=== PATIENT | female | born 1945 | race Caucasian/White ===

== ENCOUNTER 2020-12-03 17:18 | Emergency (ER) | payer MEDICARE, SELFPAY ==
[2020-12-03 17:53] VITALS: BP 150/82; PULSE 70; RESP 18; TEMP 36.9; O2SAT 98; BMI 26.6
--- NOTE | 2020-12-03 18:17 | XRR_ITS ---
PROCEDURE INFORMATION: Exam: XR Left Shoulder Exam date and time: 12/03/2020 6:20 PM Age: 75 years old Clinical indication: Injury or trauma; Fall; Blunt trauma (contusions or hematomas); Shoulder; Left; Prior surgery; Surgery type: Pacemaker; Additional info: Injury, fall, pain in left shoulder x today TECHNIQUE: Imaging protocol: XR Left shoulder. Views: 2 or more views. Total images: 3 COMPARISON: No relevant prior studies available. FINDINGS: Tubes, catheters and devices: Pacemaker. Bones/joints: Simple comminuted left humeral head and neck fracture with mild displacement of the greater tubercle avulsion fragment upwards of approximately 6 mm. Osteopenia. Lungs: Calcified granulomas of antecedent disease. Soft tissues: Unremarkable. XR/XR shoulder LT min 2V* [id number] IMPRESSION: Simple comminuted left humeral head and neck fracture.
[2020-12-03 18:45] VITALS: RESP 18; O2SAT 99
[2020-12-03] MEDS: fentaNYL 50 mcg/mL INJ 2mL IVP (18:45)
--- NOTE | 2020-12-03 18:57 | ED_ITS ---
HPI - Extremity Problem General: Chief complaint: Extremity Injury, Upper Stated complaint: Possible L arm/shoulder break Time Seen by Provider: 12/03/20 18:16 History of Present Illness: HPI Narrative: Well appearing 75F seen for accidental fall onto left shoulder with immediate 9/10 pain. She states that she was pushing a trailer and fell to the ground, landing squarely on her left shoulder. She has no pain in the elbow, wrist, hand, but does have some increased pain with taking a deep breath. She denies headache, visual disturbance, neck pain. She does take Plavix. She has no other acute complaints. Review of Systems General: Reports: 10 or more systems reviewed and unremarkable except in HPI and below Physical Exam Const: COMMON NORMALS: no acute distress, patient oriented x3 and alert HENMT: COMMON NORMALS: normocephalic and atraumatic HEAD & SCALP: normocephalic and atraumatic Eye: COMMON NORMALS: Equal, round and reactive pupils present, EOMs intact bilaterally and no scleral icterus PUPIL: Yes Equal, round and reactive pupils present Resp: COMMON NORMALS: normal respiratory effort and No retractions Cardio: COMMON NORMALS: regular rate, regular rhythm and No murmurs present (Cardio) RATE: regular rate RHYTHM: regular rhythm GI: COMMON NORMALS: Normal to inspection, nondistended, normoactive bowel sounds present, Soft to palpation and non-tender PALPATION: Yes Soft to palpation Extremity: LEFT UPPER EXTREMITY: Yes shoulder joint (Severe pain with any motion of the left shoulder. ) OTHER: Left shoulder has no obvious deformity, however there is some swelling on the proximal humerus. She has severe pain with any motion of the left shoulder. Elbow wrist and fingers all retain full range of motion. She has no neurovascular compromise distal to the proximal humerus pain. Neuro: COMMON NORMALS: patient oriented x3 SENSORIUM/ORIENTATION: Yes alert Skin: COMMON NORMALS: no rashes or lesions noted GENERAL SKIN EXAM: no rashes or lesions noted Course Vital Signs: Vital signs: Vital Signs Temperature 98.5 F 12/03/20 17:53 Pulse Rate 70 12/03/20 17:53 Respiratory Rate 18 12/03/20 18:45 Blood Pressure 150/82 12/03/20 17:53 Pulse Oximetry 99 12/03/20 18:45 MDM - Extremity (Nontraumatic) MDM Narrative: Medical decision making narrative: Patient remained hemodynamically stable throughout ED course. X-ray confirms a comminuted proximal left humerus fracture with some involvement of the head of the humerus. There does not appear to be dislocation. She was placed in a sling and given a single dose of fentanyl and then a dose of oxycodone orally which she tolerated well. She will be given a short course of oxycodone and follow-up to orthopedics. I spoke with orthopedics on-call who agrees with the plan. She knows she is always welcome back in the emergency department if her symptoms get worse per her outpatient follow-up. Discharge Plan Discharge Patient Disposition: Home Clinical Impression: Fracture of humerus Qualifiers: Encounter type: initial encounter Humerus Location: proximal Fracture type: closed Fracture morphology: other fracture Fracture alignment: nondisplaced Laterality: left Qualified Code(s): S42.295A - Other nondisplaced fracture of upper end of left humerus, initial encounter for closed fracture Condition: Stable Prescriptions: New oxycodone 5 mg capsule 5 mg PO Q4H PRN (Reason: pain) Qty: 30 RF: 0 No Action bisoprolol-hydrochlorothiazide 10-6.25 mg tablet 1 tab PO QAM RF: 0 simvastatin 10 mg tablet 10 mg PO BEDTIME RF: 0 clopidogrel 75 mg tablet 75 mg PO QAM RF: 0 omeprazole 20 mg capsule,delayed release(DR/EC) 20 mg PO QAM RF: 0 Fish Oil Capsule 1 cap PO DAILY RF: 0 Laxative 4 - 5 tab PO BEDTIME RF: 0 Discharge Orders: Discharge ED (Routine); Ordered 12/03/20 Ordered By: Rafy Valdez Referrals: Migel Flores MD [Primary Care Provider] - Kal Herrera MD [Physician] - 4-7 days Discharge Diet: Usual diet Discharge Activity: Limit activity as instructed Patient Instructions: Opioid Safety Activity Restrictions/Additional Instructions: You have a broken left proximal humerus. Please leave it in the sling and take the pain medication as prescribed as needed for pain. It would likely be best that you sleep in the recliner and use gravity to hold your arm in place. Please follow-up closely with the orthopedic surgeon to make sure your arm is healing adequately. Coding Level of Care Code ED Liqu[employer] Store Manager for Shruthi Hatfield
[2020-12-03 20:18] VITALS: RESP 18; O2SAT 98
[2020-12-03] MEDS: oxyCODONE-APAP 5-325 mg Tablet 1 TAB PO (20:18)
[2020-12-03] MEDS: ondansetron 4 MG Tablet PO (20:51)
[2020-12-03 21:12] VITALS: PULSE 88; RESP 18; O2SAT 98
--- NOTE | 2020-12-04 09:06 | DCPLANNER ---
manufacturing production manager had message to schedule a follow up appointment for patient with ortho, Dr. Herrera for a proximail humerus fracture. manufacturing production manager called the ortho clinic, spoke with Jill, gave clinic patients information. manufacturing production manager was told that patients information would be printed and reviewed. Clinic will call patient with appointment information.
--- NOTE | 2020-12-05 12:28 | DCPLANNER ---
Patient has a follow up appointment scheduled for Saturday, December 05, 2020 at 1:[address]rera at [facility]. Clinic will call patient with appointment information.
--- NOTE | 2021-02-05 07:24 | DCPLANNER ---
Patient had a follow up appointment scheduled for 12.05.[address] Herrera at [facility] - patient did attend appointment.
== END 2020-12-03 21:13 | disposition home or self-care (01) ==
PROVIDERS: Emergency Provider Student in an Organized Health Care Education/Training Program; PCP Family Medicine
DX: S42.292A Other displaced fracture of upper end of left humerus, initial encounter for closed fracture (principal); W18.39XA Other fall on same level, initial encounter; Y93.89 Activity, other specified
CPT/HCPCS: 73030; 96374; 99283; J3010; Q0162

== ENCOUNTER → 2020-12-25 11:41 | Outpatient (BNVA) | payer MEDICARE, SELFPAY | PROVIDERS: PCP Family Medicine; Visit Provider Orthopaedic Surgery | DX: S42.202A Unspecified fracture of upper end of left humerus, initial encounter for closed fracture (principal); X58.XXXA Exposure to other specified factors, initial encounter | CPT/HCPCS: 73030 ==

== ENCOUNTER → 2021-01-22 12:04 | Outpatient (BNVA) | payer MEDICARE, SELFPAY | PROVIDERS: PCP Family Medicine; Visit Provider Orthopaedic Surgery | DX: S42.202A Unspecified fracture of upper end of left humerus, initial encounter for closed fracture (principal); X58.XXXA Exposure to other specified factors, initial encounter | CPT/HCPCS: 73030 ==

== ENCOUNTER 2021-01-23 06:00 | Outpatient (RCR) | payer MEDICARE, SELFPAY | END 2021-02-09 23:59 | disposition home or self-care (01) | LOC: SPT 06:00 | PROVIDERS: PCP Family Medicine; Referring Provider Orthopaedic Surgery; Visit Provider Orthopaedic Surgery | DX: S42.202D Unspecified fracture of upper end of left humerus, subsequent encounter for fracture with routine healing (principal); X58.XXXD Exposure to other specified factors, subsequent encounter | CPT/HCPCS: 97162 ==

== ENCOUNTER → 2021-02-27 13:07 | Outpatient (BNVA) | payer MEDICARE, SELFPAY | PROVIDERS: PCP Family Medicine; Visit Provider Orthopaedic Surgery | DX: S42.202A Unspecified fracture of upper end of left humerus, initial encounter for closed fracture (principal); S42.295A Other nondisplaced fracture of upper end of left humerus, initial encounter for closed fracture; Z87.81 Personal history of (healed) traumatic fracture; X58.XXXA Exposure to other specified factors, initial encounter | CPT/HCPCS: 73030 ==

== ENCOUNTER → 2021-11-26 15:05 | Outpatient (BNVA) | payer MEDICARE, SELFPAY | PROVIDERS: PCP Family Medicine; Visit Provider Internal Medicine Cardiovascular Disease | DX: I10 Essential (primary) hypertension (principal); Z95.0 Presence of cardiac pacemaker; Z86.73 Personal history of transient ischemic attack (TIA), and cerebral infarction without residual deficits; E78.5 Hyperlipidemia, unspecified; Z87.891 Personal history of nicotine dependence; I44.4 Left anterior fascicular block | CPT/HCPCS: 93005; 99204 ==

== ENCOUNTER 2022-05-10 11:13 | Emergency (ER) | payer MEDICARE, SELFPAY ==
[2022-05-10 11:15] VITALS: BP 142/83; PULSE 80; RESP 16; TEMP 36.8; O2SAT 99; BMI 23.6
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
--- NOTE | 2022-05-10 11:27 | XRR_ITS ---
PROCEDURE INFORMATION: Exam: XR Left Tibia and Fibula Exam date and time: 05/10/2022 11:53 AM Age: 76 years old Clinical indication: Injury or trauma; Fall; Blunt trauma; Lower leg; Left; Additional info: Fall, pain superiorly TECHNIQUE: Imaging protocol: Radiologic exam of the Left tibia and fibula. Views: 2 views. COMPARISON: No relevant prior studies available. FINDINGS: Bones/joints: Normal. Soft tissues: There are benign-appearing soft tissue calcifications. Vasculature: There are peripheral vascular calcifications. XR/XR tibia fibula LT 2V [id number] IMPRESSION: No acute findings.Non acute findings as described above.
--- NOTE | 2022-05-10 11:27 | XRR_ITS ---
PROCEDURE INFORMATION: Exam: XR Right Knee Exam date and time: 05/10/2022 11:56 AM Age: 76 years old Clinical indication: Injury or trauma; Fall; Blunt trauma; Knee; Left; Additional info: Fall pain TECHNIQUE: Imaging protocol: Radiologic exam of the Right knee. Views: 3 views. COMPARISON: No relevant prior studies available. FINDINGS: Bones/joints: There are small marginal osteophytes across the tibia-fibular joint and medial joint compartment consistent with primary osteoarthritic change. The lateral aspect of the lateral tibial plateau appears somewhat depressed without a discrete fracture seen. Soft tissues: There are benign-appearing soft tissue calcifications. XR/XR knee RT 3V* [id number] IMPRESSION: There is mild depression at the lateral aspect of the lateral tibial plateau without a discrete fracture seen. CT scan of the knee is recommended for further evaluation.
--- NOTE | 2022-05-10 11:27 | XRR_ITS ---
PROCEDURE INFORMATION: Exam: XR Left Knee Exam date and time: 05/10/2022 11:51 AM Age: 76 years old Clinical indication: Injury or trauma; Fall; Blunt trauma; Knee; Left; Additional info: Fall, pain TECHNIQUE: Imaging protocol: Radiologic exam of the Left knee. Views: 3 views. COMPARISON: No relevant prior studies available. FINDINGS: Bones/joints: There is a displaced fracture through the mid pole of the patella with 2.5 cm separation across the fracture site and adjacent soft tissue hematoma. Soft tissues: See Bones/joints finding. Vasculature: There are peripheral vascular calcifications. XR/XR knee LT 3V* [id number] IMPRESSION: There is a displaced fracture through the mid pole of the patella with 2.5 cm separation across the fracture site and adjacent soft tissue hematoma.
--- NOTE | 2022-05-10 11:27 | XRR_ITS ---
PROCEDURE INFORMATION: Exam: XR Pelvis Exam date and time: 05/10/2022 11:50 AM Age: 76 years old Clinical indication: Injury or trauma; Fall; Blunt trauma (contusions or hematomas); Bilateral; Pelvic region; Additional info: Fall, lle pain TECHNIQUE: Imaging protocol: Radiologic exam of the pelvis. Views: 1 or 2 view. COMPARISON: No relevant prior studies available. FINDINGS: Bones/joints: There are degenerative changes in the visualized lower lumbar spine. Degenerative changes extend across the sacroiliac joints. There are small marginal osteophytes across the hip joints. Soft tissues: Unremarkable. Vasculature: There are vascular calcifications. XR/XR pelvis 1-2V* [id number] IMPRESSION: There are degenerative changes as described above. No evidence for acute fracture.
[2022-05-10] MEDS: oxyCODONE 5 mg IR Tab/Cap PO (13:26)
[2022-05-10] MEDS: ketorolac 30 mg/mL INJ 15 MG IM (13:26)
[2022-05-10] MEDS: acetaminophen 325 mg Tablet 650 MG PO (13:26)
--- NOTE | 2022-05-10 13:43 | CTR_ITS ---
PROCEDURE INFORMATION: Exam: CT Right Lower Extremity Without Contrast, Knee Exam date and time: 05/10/2022 1:58 PM Age: 76 years old Clinical indication: Injury or trauma; Fall; Blunt trauma; Knee; Right; Additional info: ? Tibial plateua fracture, abnormal XR TECHNIQUE: Imaging protocol: CT of the Right lower extremity without contrast was performed. Exam focused on the knee. Radiation optimization: All CT scans at this facility use at least one of these dose optimization techniques: automated exposure control; mA and/or kV adjustment per patient size (includes targeted exams where dose is matched to clinical indication); or iterative reconstruction. COMPARISON: CR (LOW EXM, ) 05/10/2022 11:56 AM RADIATION DOSE METRICS: Total DLP (mGy-cm): 320.82 FINDINGS: Bones/joints: There is chronic contour abnormality of the lateral tibial plateau possibly representing sequela of chronic injury/fracture. No acute fracture is seen. Soft tissues: Normal. Vasculature: There are peripheral vascular calcifications. CT/CT knee RT wo con* [id number] IMPRESSION: There is chronic contour abnormality of the lateral tibial plateau possibly representing sequela of chronic injury/fracture. No acute fracture is seen.
--- NOTE | 2022-05-10 13:44 | PC.NURSE ---
Patient received education, on how to use crutches. Patient demonstrated the use of crutches. Patient's family will obtain a wheel chair for said patient.
--- NOTE | 2022-05-13 09:57 | DCPLANNER ---
Addendum entered by Patricia Mari 05/21/22 14:31: Patient had a follow up appointment scheduled for 05.13.22 with Tomi at ortho - patient did attend appointment. Original Note: financial investment manager had message to schedule a follow up appointment for patient with ortho. financial investment manager sent patients information to the front office staff at ortho. Patients information will be printed and reviewed. Clinic will call patient with appointment information.
== END 2022-05-10 15:38 | disposition home or self-care (01) ==
PROVIDERS: Emergency Provider Emergency Medicine; PCP Family Medicine
DX: S82.002A Unspecified fracture of left patella, initial encounter for closed fracture (principal); S80.212A Abrasion, left knee, initial encounter; S80.211A Abrasion, right knee, initial encounter; W18.39XA Other fall on same level, initial encounter; I10 Essential (primary) hypertension; Z86.73 Personal history of transient ischemic attack (TIA), and cerebral infarction without residual deficits; Z87.891 Personal history of nicotine dependence
CPT/HCPCS: 29530; 72170; 73562; 73590; 73700; 96372; 99285; E0114; J1885

== ENCOUNTER → 2022-05-13 11:04 | Outpatient (BNVA) | payer MEDICARE, SELFPAY | PROVIDERS: PCP Family Medicine; Referring Provider Emergency Medicine; Visit Provider Student in an Organized Health Care Education/Training Program | DX: W17.89XA Other fall from one level to another, initial encounter (principal); S82.002A Unspecified fracture of left patella, initial encounter for closed fracture | CPT/HCPCS: 73560 ==

== ENCOUNTER 2022-05-13 14:43 | Outpatient (CLI) | payer MEDICARE, SELFPAY | END 2022-05-13 14:44 | disposition home or self-care (01) | LOC: SPT 14:43 | PROVIDERS: PCP Family Medicine; Visit Provider Student in an Organized Health Care Education/Training Program | DX: Z46.89 Encounter for fitting and adjustment of other specified devices (principal); S82.092D Other fracture of left patella, subsequent encounter for closed fracture with routine healing; X58.XXXD Exposure to other specified factors, subsequent encounter | CPT/HCPCS: 97760; 99204; L1832 ==

== ENCOUNTER 2022-05-16 07:34 | Day surgery (SDC) | payer MEDICARE, SELFPAY ==
[2022-05-15 13:44] VITALS: BMI 23.6
[2022-05-16] VITALS (11 sets, daily range): BP systolic 127–175; BP diastolic 61–98; PULSE 69–79; RESP 13–18; TEMP 36.1–36.8; O2SAT 90–100
--- NOTE | 2022-05-16 | SCC_ITS ---
Procedure Done: Left patella open reduction internal fixation 50.6 seconds of fluoroscopic guidance, for a cumulative dose of 2.41 mGy, was provided to Dr. Krishna by the radiology department. C-arm images of the left knee were saved for the patient's permanent record. JENNI
--- NOTE | 2022-05-16 | XR_ITS ---
WS: [id number] Left knee, C-arm fluoroscopy views, 05/16/2022 Clinical Data: orif patella Comparison: Left patella, 05/13/2022 Findings: There are 3 orthopedic screws reducing the transverse fracture of the left patella. XR/XR knee LT 1-2V 58830 Impression: Internal fixation of transverse fracture of left patella.
[2022-05-16] MEDS: acetaminophen 1,000 MG/100 ML PIGGYBACK 400 MG IV (08:13)
[2022-05-16] MEDS: ketorolac 30 mg/mL INJ IVP (08:13)
[2022-05-16] MEDS: sodium chloride 0.9% 1,000 ML 30 ML IV (08:14)
--- NOTE | 2022-05-16 08:14 | P.ANESASSM_ITS ---
Pre-Anesthetic Assessment Height/Weight: Height 1.65 m Weight 64.41 kg Temp Pulse Resp BP Pulse Ox O2 Del Method 98.2 F 74 18 127/77 98 05/16/22 08:01 05/16/22 08:01 05/16/22 08:01 05/16/22 08:01 05/16/22 08:01 05/16/22 08:06 Preop Diagnosis: Displaced left patella fracture Operation Date: 05/16/22 09:05 Proposed Procedures p OPEN REDUCTION INTERNAL FIXATION OF LEFT PATELA FRACTURE 83427,S82.002A(Left) - Giancarlo Reynolds, Familial anesthetic complications: None Was Beta Mikel taken within 24 hours: Yes Was Clonidine taken within 24 hours: N/A Last intake: Intake Last Liquid Date 05/15/22 Last Liquid Time 23:00 Last Solid Date 05/15/22 Last Solid Time 23:00 Social No alcohol and No tobacco Exam alert, oriented x 3, clear to auscultation bilaterally and regular rate & rhythm Airway Mallampati: Class II Dentition: false CV/HEM Arrythmia (pacemaker for bradycardia/ heart pausing ) and Hypertension Echo from 2014 - EF 65%, normal GI Gastroesophageal Reflux Disease Neuropsych Cerebrovascular Accident (on plavix) Anesthetic Plan ASA status: 3 Anesthesia: General Risk of > 500 ml blood loss (7ml/kg in children): No Other Pertinent Information Patient's family declined block, due to inability to ensure patient would not bear weight. She doesn't always listen. She'll try to get up anyway. Medications/Allergies Home Medications Medication Instructions Recorded Confirmed Last Taken Type bisoprolol 10 1 tab PO QAM 12/03/20 05/16/22 05/15/22 History mg-hydrochlorothiazide 6.25 mg tablet clopidogrel 75 mg tablet 75 mg PO QAM 12/03/20 05/15/22 05/14/22 History omega-3 fatty acids 1 cap PO DAILY 12/03/20 05/16/22 05/15/22 History omeprazole 20 mg capsule,delayed 20 mg PO QAM 12/03/20 05/16/22 05/15/22 History release simvastatin 10 mg tablet 10 mg PO BEDTIME 12/03/20 05/16/22 05/15/22 History donepezil 5 mg tablet 5 mg PO DAILY 11/26/21 05/16/22 05/15/22 History fluoxetine 20 mg capsule 60 mg PO DAILY 11/26/21 05/16/22 05/15/22 History ondansetron 4 mg disintegrating 4 mg PO Q8H PRN nausea and 05/10/22 05/15/22 Unknown Rx tablet vomiting #15 tabs oxycodone 5 mg tablet 5 mg PO Q4H PRN pain #30 tabs 05/10/22 05/16/22 05/15/22 Rx polyethylene glycol 3350 17 gram 17 g PO DAILY #30 ea 05/10/22 05/16/22 05/15/22 Rx oral powder packet (Miralax) [place] knee brace #1 ea 05/13/22 05/13/22 Unknown Rx Allergies Allergy/AdvReac Type Severity Reaction Status Date / Time Sulfa (Sulfonamide Allergy Unknown rash Verified 05/15/22 13:38 Antibiotics) codeine Allergy nausea Verified 05/15/22 13:38 [facility] Anesthesia Medical History Benign essential hypertension CVA (cerebral vascular accident) Family History Mother Diabetes Father Diabetes Brother Diabetes x 10 brothers Hypertension x 10 brothers Lung disease Cancer CAD (coronary artery disease) x 4 brothers Sister Diabetes x 4 sisters Hypertension x 7 sisters Denies family history of Clotting disorder Anesthesia complication Bleeding disorder Social History Smoking and tobacco status: former smoker Alcohol intake: never Data Anesthesia Cardiac Studies: No Data to Display
--- NOTE | 2022-05-16 08:20 | ECG_ITS ---
[facility] Test Date: 2022-05-16 Pat Name: Kristina Johnson Department: Room: Gender: Female Tattoo Identifier: : 1945 Requested By: Lin Patel Order Number: [id number] Brinda MD: Miriam Mccormick M.D. Measurements Intervals [place] Rate: 69 P: 236 KS: 194 QRS: -46 QRSD: 102 T: 28 QT: 434 QTc: 468 Interpretive Statements ELECTRONIC ATRIAL PACEMAKER LOW QRS VOLTAGE IN PRECORDIAL LEADS [QRS DEFLECTION < 1.0 mV IN CHEST LEADS] LEFT ANTERIOR FASCICULAR BLOCK [QRS AXIS <= -45, QR IN I, RS IN II] No previous ECG available for comparison Electronically Signed On 05-16-2022 10:42:50 CDT by Miriam Mccormick M.D. [email or web address]
--- NOTE | 2022-05-16 09:12 | W.PM.OPSUD ---
Surgery/Procedure H&P Update DATE OF PROCEDURE: May 16, 2022 DATE H&P PERFORMED: 05/13/22 CHANGES TO PREVIOUS DOCUMENTATION: None. Anterior aspect of the knee continues ecchymosis and swelling over fracture site of patella. Palpable hematoma and defect. Patient did have small little scabs over the anterior aspect of the knee they have small areas of erythema around. At this point time she will receive appropriate perioperative antibiotics and I will send her home on some p.o. antibiotics just in case for infection prophylaxis due to small erythema over incision site. This point time feel no indication to further delay surgery and fixation patient family understand agree with current plan. All questions answered. We will proceed with open reduction internal fixation left patella fracture. PREOP DIAGNOSIS: Displaced left patella fracture PRIMARY INDICATION FOR PROCEDURE: Displaced left patella fracture PLANNED PROCEDURE: Operation Date: 05/16/22 09:05 Proposed Procedures p OPEN REDUCTION INTERNAL FIXATION OF LEFT PATELA FRACTURE 14460,S82.002A(Left) - Giancarlo Krishna DO
[2022-05-16 09:25] LABS: Blood Urea Nitrogen 9 mg/dL (8-23); Calcium 9.3 mg/dL (8.5-10.5); Carbon Dioxide 27 mmol/L (22-29); Chloride 98 mmol/L (98-107); Glucose 78 mg/dL (65-115); Osmolality Calculated 280 mOsm/kg (285-295); Sodium 136 mmol/L (136-145)
[2022-05-16 09:27] LABS: Anion Gap 14.9 (5-19); Potassium 3.9 mmol/L (3.5-5.1)
[2022-05-16] MEDS: ceFAZolin 2,000 MG in sodium chloride 0.9% (plus) 50 ML 100 MG IV (09:47)
--- NOTE | 2022-05-16 11:44 | P.OP_ITS ---
Brief Operative Note Date of procedure: 05/16/22 Pre-op diagnosis: Displaced left patella fracture Post-op diagnosis: same Procedure Done: Left patella open reduction internal fixation Surgeon: Giancarlo Krishna Estimated blood loss (mL): 25 Complications: None Post-op Plan: Patient to recover in PACU. Patient will discharge later today. Dressings clean dry and intact. Knee brace locked in full extension on and in place. Patient to follow-up in 2 weeks. Will be given appropriate discharge instructions, DVT prophylaxis, pain medication postoperatively as well as will give her some p.o antibiotics for surgical prophylaxis as she did have some mild erythema by her eschars on the anterior aspect of the knee near the incision. Patient will follow-up in 2 weeks may weight-bear as tolerated with knee locked in full extension. May weight-bear as tolerate with knee locked in full extension utilizing walker or crutches. Condition: stable Disposition: same day Coding Level of Care Code Acute Academic Department Chair for Shruthi Hatfield
--- NOTE | 2022-05-16 11:46 | PM.PACU ---
PACU note Narrative: Recovering well in PACU. Patient recovering lethargic and sedated from anesthesia unable to cooperate for sensory and motor examination. Toes are warm and well-perfused. Brisk capillary refill less than 2 seconds. Distal pulse palpable. Dressings clean dry and intact brace locked in full extension Exam: unarousable (see narrative for detailed exam) Disposition: discharged
--- NOTE | 2022-05-16 11:48 | P.OP_ITS ---
Operative Report Date of procedure: May 16, 2022 Pre-op diagnosis: Preop Diagnosis Displaced left patella fracture Post-op diagnosis: Same with associated medial and lateral retinacular tears Procedure done: Left patella open reduction internal fixation Implants: [place] 4.0 mm headed partially-threaded cannulated screws 36 mm, 36 mm, 38 mm Arthrex fiber tape Arthrex FiberWire Surgeon: Giancarlo Krishna DO Estimated blood loss: 25 cc 56 minutes IV fluids: See anesthesia record Complications: None Condition: stable Disposition: same day Brief History: Kristina is a pleasant 76-year-old female who sustained an injury to her left knee with imaging and physical exam findings consistent with a left patella fracture. She has significant diastases at the fracture site and inability to perform a straight leg raise showing disruption of extensor mechanism. We had detailed discussion about her treatment options in the office about nonoperative and operative intervention. Through shared decision making she agrees to proceed with surgical intervention. She understands the risk benefits complications a lternatives to surgical treatment option and agrees to proceed with surgery. Preoperatively her eschar she had from in the office have some slight mild erythema around the sites she received appropriate perioperative antibiotics however we will send her home on some p.o. antibiotics postoperatively just for infection prophylaxis. Patient understands agrees with current plan. All questions answered. Consent was obtained in the office and reviewed in the preoperative holding area. Procedure: Patient was seen evaluated in the preoperative holding area. The consent was reviewed with patient. Correct extremity was then marked. Patient was then seen evaluated by the anesthesia and preoperative team. Once cleared for surgery she was then taken to the operative suite. She was then placed in supine position with all bony prominences well-padded patient was appropriately secured to the bed. She underwent anesthesia per the anesthesia department. Once appropriately anesthetized the left lower extremity was then placed with a nonsterile tourniquet to the left lower extremity thigh. The left lower extremity was then prepped and draped in standard orthopedic fashion. Patient received appropriate preoperative antibiotics. Final timeout performed. Esmarch tourniquet was used exsanguinate the left lower extremity and tourniquet was insufflated to 250 mmHg Standard anterior longitudinal incision was made directly over the anterior aspect of needle centered over the fracture site sharp scalpel excision through skin and subcutaneous tissue with full-thickness skin flaps were made both medially and laterally. Immediately encountered the extensor retinaculum with a large hematoma. No purulence or anything was noted on my dissection no concerning findings for a deep infection at this point time. I then utilized scalpel excision to mobilize my skin flaps to have full visualization of patient's patellar fracture. This point time thorough irrigation and suction was used to evacuate hematoma as well as clean out the knee joint. Once this was done I used sharp scalpel excision to elevate the periosteum to visualize my fracture fragments. There was 1 main transverse fracture fragment and there was a slight longitudinal split on the inferior fracture fragment creating 2 pieces inferiorly with the smaller piece being on the lateral aspect. Once I had direct visualization of my fracture fragments I then utilized a combination of clamps. I first clamped my inferior fracture fragment and perpendicular to this longitudinal split to maintain this 1 main fracture fragment and keep this together well her tension band construct was placed. I then subsequently under direct large C arm fluoroscopic imaging placed intact macula and clamp to reduce the proximal and distal bone fragments together. Clamp was held directly at the level of the articular surface to have appropriate compression at this site. I then utilized a freer through the medial and lateral retinacular tears to feel my articular reduction which was anatomic. At this point time I was satisfied in multiple orthogonal images with my patellar fracture reduction. I then subsequently advanced a K wire being sure to capture the small inferior lateral fracture fragment with a longitudinal split while my clamp held our reduction. This was then advanced to appropriate depth. I then at this point time felt fragment was long urgent enough to accommodate for 3 cannulated screws with a tension band construct fixation so I subsequently placed 2 more K wires in parallel fashion this would obtain excellent capture and spread throughout her fracture. Once these K wires were placed and confirmed to be in appropriate position I then measured the sequentially and took 2 mm off. Once this was done I then advanced the K wires and my laboratory assistant retrieve them proximally out of the incision I then sequentially used the cannulated drill bit to drill out the near cortex of all 3 screw sites. Then while using a tenaculum to hold the reduction and prevent any rotation I subsequently by hand placed a 36 mm, 36 mm and a 38 mm 4.0 mm partially-threaded cannulated headed screw. These had excellent fixation and were confirmed to be not too long and out of bone to prevent any type of suture cut out. Once I was satisfied with my placement the clamps were then subsequently removed my reduction was maintained. At this point time I then utilized a nitinol loop needle loaded up Arthrex suture tape and then shuttled this into tension band fashion through all 3 screws and these were tied to complete our tension band construct with excellent fixation and compression along the fracture site. Suture tape was then cut and knots were buried. At this point I utilized Arthrex FiberWire to repair the medial and lateral retinacular tears. I then utilized interrupted Vicryl suture to reapproximate the periosteum over the fracture site superficially. Next I did a running cerclage as FiberWire suture around the patella to add for fixation stability. This was then subsequently tied and excess suture removed. This completed her construct a final images of AP and lateral were performed showing anatomic reduction patella fracture with stable fixation. The wound bed was then thoroughly irrigated. Tourniquet deflated. Hemostasis maintained with electrocautery. The incision was then closed in layered fashion with 0 Vicryl suture 2-0 Vicryl suture and david for skin Xeroform 4 x 4's ABD Curlex and an Simeon wrap was then applied and the knee was placed into her hinged knee brace locked in full extension. Patient was then awakened from anesthesia and taken to PACU in stable condition. Patient tolerated procedure without complications. Disposition: Patient taken to PACU in stable condition will discharge later today. Dressings clean dry and intact given appropriate discharge instructions, pain medication DVT prophylaxis postoperatively. She will get p.o. antibiotics for surgical prophylaxis due to erythema over eschar abrasions of the anterior aspect of the knee near the incision. We will see her back in 2 weeks for follow-up. She can be weightbearing as tolerated with the knee locked in full extension. Patient should have no bending of the knee until follow-up. Patient understands agrees with current plan. All questions answered.
[2022-05-16] MEDS: oxyCODONE-APAP 5-325 mg Tablet 1 TAB PO (12:40)
[2022-05-16] MEDS: fentaNYL 50 mcg/mL INJ 2mL 25 MCG IVP (13:34)
--- NOTE | 2022-05-16 14:02 | SUR.PHASEII ---
patient's family requested home health to help her with bathing at home. discharge planning working on this and will call patient.
--- NOTE | 2022-05-16 15:11 | ANE.PACU2 ---
Inpatient post-anesthesia follow up: Airway intact: Yes Vital signs: Temperature 97.5 F Pulse Rate 71 Respiratory Rate 16 Blood Pressure 163/98 Pulse Oximetry 90 Oxygen Delivery Me thod Room Air Oxygen Flow Rate 5 Fraction of Inspir ed Oxygen Hydration adequate: Yes Nausea and vomiting: No Pain level: 1 Mental status: Baseline
== END 2022-05-16 14:00 | disposition home or self-care (01) ==
PROVIDERS: Anesthesiology; PCP Family Medicine; Visit Provider Student in an Organized Health Care Education/Training Program
PROC: (CPT 27524; principal; 2022-05-16 08:55)
DX: S82.002A Unspecified fracture of left patella, initial encounter for closed fracture (principal); X58.XXXA Exposure to other specified factors, initial encounter; I10 Essential (primary) hypertension; K21.9 Gastro-esophageal reflux disease without esophagitis; Z86.73 Personal history of transient ischemic attack (TIA), and cerebral infarction without residual deficits; Z79.02 Long term (current) use of antithrombotics/antiplatelets; Z87.891 Personal history of nicotine dependence
CPT/HCPCS: 27524; 73560; 76000; 80048; 86850; 86900; 93005; C1713; J0131; J0690; J1100; J1170; J1885; J2405; J2704; J2710; J2795; J3010; J3490; J7030

== ENCOUNTER → 2022-05-29 07:52 | Outpatient (BNVA) | payer MEDICARE, SELFPAY | PROVIDERS: PCP Family Medicine; Visit Provider Student in an Organized Health Care Education/Training Program | DX: Z98.890 Other specified postprocedural states (principal); S82.002D Unspecified fracture of left patella, subsequent encounter for closed fracture with routine healing; X58.XXXD Exposure to other specified factors, subsequent encounter | CPT/HCPCS: 73560; 99024 ==

== ENCOUNTER 2022-05-29 12:10 | Inpatient (IN) | payer MEDICARE, SELFPAY ==
[2022-05-29] VITALS (20 sets, daily range): BP systolic 137–170; BP diastolic 68–83; PULSE 69–71; RESP 16–17; TEMP 36.7; O2SAT 95–99; BMI 21.9; BMI 25.2
--- NOTE | 2022-05-29 13:10 | XR_ITS ---
WS: [id number] Exam: XR chest 1V portable [id number] Date/Time of Exam: 05/29/2022 1:24 PM Reason For Exam: dyspnea/cough Comparison 03/22/2019. The lungs are hyperinflated and clear. Normal cardiomediastinal silhouette. No pleural effusions. Per manent cardiac pacer seen over the left chest. Calcified granuloma in the left lower lung zone. Old p roximal left humeral fracture. Remaining bony structures are intact. XR/XR chest 1V portable [id number] IMPRESSION: 1. No acute cardiopulmonary finding. No change.
--- NOTE | 2022-05-29 13:40 | USCV_ITS ---
Kristina Johnson Age: 76 Gender: F : 1945 Exam Date: 05/29/2022 14:19 Ordering Phys: Jens Stratton DO Technologist: Ozzie Landers [place] [facility] [place] Indication: post lt knee surg PROCEDURES: Venous duplex imaging was performed in only the left lower extremity. The following venous structures were evaluated: common femoral vein, profunda vein, proximal portion of the greater saphenous vein, superficial femoral vein, and the popliteal vein. In addition, the posterior tibial and peroneal trunk were evaluated. FINDINGS: Normal 2-D Doppler and augmentation and compressibility throughout the lower extremity venous structures. Additional imaging through the proximal calf veins also reveals no thrombus. Limited evaluation of the greater saphenous vein is patent with no thrombus.. CONCLUSIONS No evidence of left lower extremity DVT. Simone Limon MD (Electronically Signed) Final Date: 29 May 2022 15:13 S
--- NOTE | 2022-05-29 13:40 | W.ED.NAVMDI ---
HPI - Nausea/Vomiting/Diarrhea General: Chief complaint: Nausea/Vomiting/Diarrhea Stated complaint: n/v/d Time Seen by Provider: 05/29/22 13:07 Source: patient Mode of arrival: wheelchair History of Present Illness: 76-year-old female presents emergency room complaining of nausea and leg pain. Patient recently had a patellar fracture she underwent open reduction internal fixation according to the orthopedic notes and in talking Dr. Krishna that is actually been going well. They are concerned it is not healing well crutches not been able to eat and drink states she has had nausea and vomiting and intermittent constipation since the surgery. She is still using oxycodone for pain. She previously had a stroke and has difficult time with following discussion at times. MD elicited complaint: nausea, vomiting and diarrhea Onset (ago): week(s) Description of vomiting: watery and bilious Description of diarrhea: watery Associated nausea: Yes Associated abdominal pain: No Exacerbating factors: eating Relieving factors: none Associated symtoms: Reports bloating, fatigue, anorexia, malaise, nausea and weakness; Denies anxiety, change in vision, chest pain, cough, diaphoresis, decreased urine output, dizziness, dysuria, epistaxis, fecal incontinence, fevers/chills, headache(s), myalgias, numbness, palpitations, rash, short of breath, syncope, tenesmus or tinnitus Review of Systems Const: Reports: fatigue and malaise; Denies: fever(s), chills or diaphoresis Eyes: Denies: change in vision ENMT: Denies: tinnitus or epistaxis Card: Denies: chest pain, palpitations or syncope Resp: Denies: dyspnea, productive cough or non-productive cough GI: Reports: nausea, vomiting and bloating; Denies: abdominal pain or fecal incontinence : Denies: flank pain, difficulty voiding, dysuria, urinary frequency or urinary urgency Musc: Denies: neck pain or back pain Skin/Breast: Denies: rash or pruritus Neuro: Denies: headache(s) or dizziness Psych: Denies: anxiety PFSH ED PFSH: Medical History (Updated 05/29/22 @ 16:26 by Jens Stratton DO) Benign essential hypertension Cerebrovascular disease CVA (cerebral vascular accident) Pacemaker SSS (sick sinus syndrome) Thrombotic stroke Surgical History (Updated 05/29/22 @ 13:45 by Jens Stratton DO) Hx of cholecystectomy Hx of knee surgery Family History Mother Diabetes CAD (coronary artery disease) Father Diabetes CAD (coronary artery disease) Brother Diabetes x 10 brothers Hypertension x 10 brothers Lung disease Cancer CAD (coronary artery disease) x 4 brothers Stroke Sister Diabetes x 4 sisters Hypertension x 7 sisters CAD (coronary artery disease) Brother Stroke CAD (coronary artery disease) Cancer Diabetes Brother CAD (coronary artery disease) Diabetes Brother CAD (coronary artery disease) Brother CAD (coronary artery disease) Brother CAD (coronary artery disease) Brother CAD (coronary artery disease) Brother CAD (coronary artery disease) Sister Diabetes Lung disease Denies family history of Clotting disorder Dementia Chronic kidney disease (CKD) Suicide Anesthesia complication Bleeding disorder Social History Smoking and tobacco status: former smoker Alcohol intake: never Physical Exam Const: GENERAL APPEARANCE: cooperative and comfortable ORIENTATION/CONSCIOUSNESS: Yes awake, Yes oriented to person, Yes oriented to place and Yes oriented to time HENMT: COMMON NORMALS: normocephalic, atraumatic and hearing grossly normal bilaterally HEAD & SCALP: normocephalic and atraumatic Resp: COMMON NORMALS: normal respiratory effort, No retractions, No use of accessory muscles and clear to auscultation bilaterally AUSCULTATION: clear to auscultation bilaterally Cardio: COMMON NORMALS: regular rate, regular rhythm and No murmurs present (Cardio) RATE: regular rate RHYTHM: regular rhythm GI: COMMON NORMALS: Soft to palpation and No hepatosplenomegaly present AUSCULTATION: Yes normoactive bowel sounds PALPATION: Yes Soft to palpation, No Tenderness to palpation present (GI), No Guarding due to palpation present (GI) and Yes No hepatosplenomegaly present Extremity: COMMON NORMALS: normal to inspection, capillary refill normal, no clubbing, cyanosis or edema, no calf tenderness and no pedal edema Neuro: SENSORIUM/ORIENTATION: Yes oriented to person, Yes oriented to place and Yes oriented to time Skin: COMMON NORMALS: no rashes or lesions noted GENERAL SKIN EXAM: no rashes or lesions noted Course Vital Signs: Vital signs: Vital Signs Temperature 98.0 F 05/29/22 12:56 Pulse Rate 70 05/29/22 15:20 Respiratory Rate 16 05/29/22 12:56 Blood Pressure 160/79 05/29/22 15:20 Pulse Oximetry 99 05/29/22 15:20 Oxygen Delivery Me thod 05/29/22 15:20 MDM - Nausea/Vomiting/Diarrhea Medical Decision Making Venous duplex of the left leg is normal. Patient is hyponatremic. I think that and her medicine vacation side effects are driving most of her symptoms. Will admit discussed with hospitalist IV fluids started. Patient also likely need to transition from oxycodone to something else like it lop with her GI upset and her intermittent constipation. Medical Records I reviewed the patient's medical records. Lab Data I reviewed the patient's lab results. 05/29/22 14:13 05/29/22 14:13 Radiology Impressions Chest X-Ray 05/29/22 13:10 IMPRESSION: 1. No acute cardiopulmonary finding. No change. Laboratory Results WBC 11.9 10^3/uL (4.0-10.0) H 05/29/22 14:13 RBC 4.48 10^6/uL (4.1-5.3) 05/29/22 14:13 Hgb 13.1 g/dL (11.5-15.3) 05/29/22 14:13 Hct 38.8 % (37.0-47.0) 05/29/22 14:13 MCV 86.6 fl (81-99) 05/29/22 14:13 MCH 29.2 pg (28.0-34.0) 05/29/22 14:13 MCHC 33.8 g/dL (30.0-36.0) 05/29/22 14:13 RDW 13.1 % (12.1-15.1) 05/29/22 14:13 Plt Count 529 10^3/cmm (130-400) H 05/29/22 14:13 MPV 8.5 fL (7.4-10.4) 05/29/22 14:13 Neut % (Auto) 83.4 % 05/29/22 14:13 Lymph % (Auto) 9.9 % 05/29/22 14:13 [place] % (Auto) 4.5 % 05/29/22 14:13 Eos % (Auto) 0.1 % 05/29/22 14:13 Baso % (Auto) 0.3 % 05/29/22 14:13 Neut # (Auto) 9.90 10^3/uL (1.8-7.7) H 05/29/22 14:13 Lymph # (Auto) 1.2 10^3/uL (0.8-4.8) 05/29/22 14:13 [place] # (Auto) 0.5 10^3/uL (0.2-0.9) 05/29/22 14:13 Eos # (Auto) 0.0 10^3/uL (0.0-0.8) 05/29/22 14:13 Baso # (Auto) 0.0 10^3/uL (0.0-0.1) 05/29/22 14:13 Nucleated RBC % (auto) 0 % 05/29/22 14:13 Nucleated RBCs # 0.0 /100WBC 05/29/22 14:13 Sodium 122 mmol/L (136-145) L 05/29/22 14:13 Potassium 4.4 mmol/L (3.5-5.1) 05/29/22 14:13 Chloride 84 mmol/L (98-107) L 05/29/22 14:13 Carbon Dioxide 27 mmol/L (22-29) 05/29/22 14:13 Anion Gap 15.4 (5-19) 05/29/22 14:13 BUN 15 mg/dL (8-23) 05/29/22 14:13 Creatinine 0.8 mg/dL (0.5-0.9) 05/29/22 14:13 GFR Calculation Not Reportable 05/29/22 14:13 Glucose 109 mg/dL (65-115) 05/29/22 14:13 Calculated Osmolality 255 mOsm/kg (285-295) L 05/29/22 14:13 Calcium 10.3 mg/dL (8.5-10.5) 05/29/22 14:13 Total Bilirubin 0.5 mg/dL (0.15-1.2) 05/29/22 14:13 AST 31 U/L (0-32) 05/29/22 14:13 ALT 16 U/L (0-33) 05/29/22 14:13 Alkaline Phosphatase 163 U/L (35-105) H 05/29/22 14:13 Total Protein 7.6 g/dL (6.6-8.7) 05/29/22 14:13 Albumin 4.3 g/dL (3.5-5.2) 05/29/22 14:13 Globulin 3.3 g/dL (1.3-4.6) 05/29/22 14:13 Serum Ketones Negative (Negative) 05/29/22 14:13 Discharge Plan Discharge Patient Disposition: Admitted As Inpatient Admit Provider: Waldo Sheth Clinical Impression: Acute hyponatremia, CVA (cerebral vascular accident), Benign essential hypertension, Presence of permanent cardiac pacemaker, Increased nausea and vomiting, Patellar fracture Condition: Stable Coding Level of Care Code ED Hand Endband Cutter for Chg Fwd Exam Detailed
--- NOTE | 2022-05-29 13:54 | PC.NURSE ---
pt's family reports pt has been having nausea and vomiting for 2 weeks. Had recent knee surgery that isnt healing and they were told by Dr. Krishna that it is related to poor nutrition. Family denies any new symptoms today. Denies fevers, abdominal pain, or complaints. lung sounds clear bilat. bowel sounds present x4.
[2022-05-29] MEDS: sodium chloride 0.9% 1,000 ML 999 ML IV (14:07)
[2022-05-29] MEDS: ondansetron 2 mg/ML SDV 2 mL 4 MG IVP (14:11)
[2022-05-29 14:21] LABS: Basophils % 0.3 %; Eosinophils % 0.1 %; Hematocrit 38.8 % (37.0-47.0); Hemoglobin 13.1 g/dL (11.5-15.3); Lymphocytes # 1.2 10^3/uL (0.8-4.8); Lymphocytes % 9.9 %; Mean Corpuscular HGB Conc 33.8 g/dL (30.0-36.0); Mean Corpuscular Hemoglobin 29.2 pg (28.0-34.0); Mean Corpuscular Volume 86.6 fl (81-99); Mean Platelet Volume 8.5 fL (7.4-10.4); Monocytes # 0.5 10^3/uL (0.2-0.9); Monocytes % 4.5 %; Neutrophils % 83.4 %; Nucleated Red Blood Cells % 0 %; Platelet Count 529 10^3/cmm (130-400); Red Blood Count 4.48 10^6/uL (4.1-5.3); Red Cell Distribution Width 13.1 % (12.1-15.1); White Blood Count 11.9 10^3/uL (4.0-10.0)
[2022-05-29 14:30] LABS: Ketone (Acetest) Serum Negative (Negative)
[2022-05-29 14:41] LABS: Alanine Aminotransferase 16 U/L (0-33); Albumin Level 4.3 g/dL (3.5-5.2); Alkaline Phosphatase 163 U/L (35-105); Anion Gap 15.4 (5-19); Aspartate Amino Transferase 31 U/L (0-32); Blood Urea Nitrogen 15 mg/dL (8-23); Calcium 10.3 mg/dL (8.5-10.5); Carbon Dioxide 27 mmol/L (22-29); Chloride 84 mmol/L (98-107); Globulin 3.3 g/dL (1.3-4.6); Glucose 109 mg/dL (65-115); Osmolality Calculated 255 mOsm/kg (285-295); Potassium 4.4 mmol/L (3.5-5.1); Sodium 122 mmol/L (136-145); Total Bilirubin 0.5 mg/dL (0.15-1.2); Total Protein 7.6 g/dL (6.6-8.7)
--- NOTE | 2022-05-29 16:21 | PC.NURSE ---
Attempted to call report to Med Surg, nurse unavailable at this time.
--- NOTE | 2022-05-29 16:49 | PC.NURSE ---
report called to BRADLEY Golden on Med Surg
[2022-05-29] MEDS: sodium chloride 0.9% 1,000 ML 75 ML IV (16:56)
[2022-05-29] MEDS: morphine 4 mg/mL SDV 1 mL 2 MG IVP (16:56)
--- NOTE | 2022-05-29 17:22 | P.HP_ITS ---
Providers/Chief Complaint Admitting Physician: Waldo Sheth MD Primary Care Provider: Migel Flores MD Chief Complaint: n/v/d History of Present Illness Kristina Johnson is a 76 year old female with past medical history of pacemaker implantation, dyslipidemia, CVA, hypertension who was recently admitted to the hospital and underwent left patella open reduction fixation on 05/16. She was brought into the ER today by her family members who were extremely concerned because of decreased appetite outpatient along with nausea. As per the family members patient has been having decreased oral intake for last 4 to 5 days which has been getting worse along with nausea and vomiting for last 24 hours because of which she is not able to keep anything down. Family members did not, patient have a lot of concerns. They think patient is depressed and even on fluoxetine she has been continue to get depressed and want to sleep see if that medication can be changed. They want to start patient on appetite stimulant. They want patient to have an MRI brain to rule out dementia and have a neurology consult regarding the same as well. They are concerned that even after so many years after stroke patient is still on Plavix. Patient herself states she is not able to eat anything because she does not have appetite. Denies of having any epigastric pain, nausea or vomiting. Denies any difficulty in swallowing. States she is able to swallow absolutely fine but just does not feel like eating. Patient herself is complaining of pain and numbness. States he takes pain medication 3 times a day currently as prescribed. States he has been taking aspirin 325 mg 2 times a day as prescribed as well for clot prevention. ER course: Blood work in the ER showed a white count of 11.9, hemoglobin of 13.1, sodium of 122, creatinine of 0.8, osmolality of 255, alkaline phosphatase of 163 with serum ketones negative. Patient was given 500 cc of IV bolus. On examination patient is lying comfortably in bed with a blood pressure of 160/72 with a heart of 70 bpm saturating well on room air. Review of Systems General: Reports: 10 or more systems reviewed and unremarkable except in HPI and below Const: Denies: fever(s), chills, body aches, change in appetite, change in we ight, malaise, night sweats, diaphoresis, change in sleep pattern, daytime sleepiness or snoring Eyes: Denies: change in vision, blurry vision, photophobia, eye discomfort or eye discharge ENMT: Denies: throat pain, enlarged tonsils, hoarseness, mouth pain, oral sores, dry mouth, tinnitus, nasal congestion or post nasal drip Card: Denies: chest pain, palpitations, irregular heart rhythm, edema, swelling of feet/ankles, lightheadedness, syncope, pre-syncope, dyspnea on exertion, orthopnea, leg pain with exertion or acrocyanosis Resp: Denies: dyspnea, productive cough, non-productive cough, wheezing, stridor, pain on inspiration, change in phlegm color, hemoptysis or chest congestion GI: Denies: abdominal pain, nausea, vomiting, hematemesis, coffee ground emesis, dysphagia, heartburn, diarrhea, constipation, bloating, GI cramping, change in bowel habits, pain on defecation, hematochezia or melena : Denies: flank pain, dysuria, urinary frequency, urinary urgency, urinary hesitancy, nocturia or hematuria Musc: Denies: neck pain, back pain, extremity pain, joint pain, joint sw elling, joint redness, joint stiffness or limited range of motion Neuro: Denies: headache(s), numbness in extremities, weakness in extremities, sensory changes, lack of coordination, difficulty walking, frequent falls, dizziness, vertigo, confusion, Slurred speech present, difficulty communicating thoughts or seizure-like activity Psych: Denies: anxiety, depression, mood swings, panic attacks, hopelessness or irritability Endo: Denies: polyuria, polydipsia, tired all the time, cold intolerance, excessive sweating, flushing or heat intolerance Eamon/Lymph: Denies: easy bruising or easy bleeding All/Imm: Denies: tongue swelling, facial swelling or acute wheezing Medications/Allergies Home Medications Medication Instructions Recorded Confirmed Last Taken Type bisoprolol 10 1 tab PO QAM 12/03/20 05/29/22 05/28/22 History mg-hydrochlorothiazide 6.25 mg tablet clopidogrel 75 mg tablet 75 mg PO QAM 12/03/20 05/29/22 05/28/22 History omeprazole 20 mg capsule,delayed 20 mg PO QAM 12/03/20 05/29/22 05/28/22 History release simvastatin 10 mg tablet 10 mg PO BEDTIME 12/03/20 05/29/22 05/28/22 History fluoxetine 20 mg capsule 60 mg PO DAILY 11/26/21 05/29/22 05/28/22 History ondansetron 4 mg disintegrating 4 mg PO Q8H PRN nausea and 05/10/22 05/29/22 Unknown Rx tablet vomiting #15 tabs Francisco J knee brace #1 ea 05/13/22 05/29/22 Unknown Rx calcium carbonate 600 mg-vitamin 1 ea PO BID 30 days #60 tabs 05/16/22 05/29/22 05/28/22 Rx D3 10 mcg (400 unit) tablet docusate sodium 100 mg capsule 100 mg PO BID constipation 14 days 05/23/22 05/29/22 05/28/22 Rx (Colace) #28 caps oxycodone 5 mg tablet 5 mg PO Q6H PRN pain 7 days #28 05/23/22 05/29/22 05/29/22 Rx tabs aspirin 325 mg capsule 325 mg PO DAILY DVT prophylaxis 05/29/22 05/29/22 05/28/22 History multivit with 1 tab PO DAILY 05/29/22 05/29/22 05/28/22 History yrmjqfjf-zjch-TM-lutein 8 mg iron-400 mcg-300 mcg tablet (Centrum Silver Women) tizanidine 4 mg tablet 4 mg PO Q8H PRN Muscle Spasm 05/29/22 05/29/22 Unknown History Allergies Allergy/AdvReac Type Severity Reaction Status Date / Time Sulfa (Sulfonamide Allergy Unknown rash Verified 05/29/22 08:16 Antibiotics) codeine Allergy nausea Verified 05/29/22 08:16 PFSH Acute PFSH: Medical History (Updated 05/29/22 @ 17:36 by Armando Arnett MD) Benign essential hypertension Cerebrovascular disease CVA (cerebral vascular accident) Frequent falls Pacemaker Presence of permanent cardiac pacemaker SSS (sick sinus syndrome) Syncope and collapse Thrombotic stroke Surgical History (Updated 05/29/22 @ 13:45 by Jens Stratton DO) Hx of cholecystectomy Hx of knee surgery Family History Mother Diabetes CAD (coronary artery disease) Father Diabetes CAD (coronary artery disease) Brother Diabetes x 10 brothers Hypertension x 10 brothers Lung disease Cancer CAD (coronary artery disease) x 4 brothers Stroke Sister Diabetes x 4 sisters Hypertension x 7 sisters CAD (coronary artery disease) Brother Stroke CAD (coronary artery disease) Cancer Diabetes Brother CAD (coronary artery disease) Diabetes Brother CAD (coronary artery disease) Brother CAD (coronary artery disease) Brother CAD (coronary artery disease) Brother CAD (coronary artery disease) Brother CAD (coronary artery disease) Sister Diabetes Lung disease Denies family history of Clotting disorder Dementia Chronic kidney disease (CKD) Suicide Anesthesia complication Bleeding disorder Social History Smoking and tobacco status: former smoker Alcohol intake: never Vitals/I&O/Wt Last Vital Signs Temp 98.0 F 05/29/22 12:56 Pulse 70 05/29/22 16:35 Resp 16 05/29/22 16:56 BP 170/78 05/29/22 16:35 Pulse Ox 98 05/29/22 16:56 O2 Del Method 05/29/22 16:35 Weight last 48 hrs Weight 59.874 kg Physical Exam Narrative: EXAM NARRATIVE: General: No acute distress, AO x 2-3, pleasant HEENT: PERRLA, pupils bilaterally equal and reactive Chest: Bilateral normal vesicular breath sounds, no rhonchi CVS: S1-S2 regular, no murmurs, no tachycardia, no gallops, no rubs Abdomen: Soft, nontender, no organomegaly, bowel sounds present, morbidly obese Neuro: No focal deficits, no facial deformity, AO x3, power 5/5 in all limbs Data 05/29/22 14:13 05/29/22 14:13 A&P Assessment and plan (1) Acute hyponatremia: Most likely secondary to dehydration from poor oral intake. Cannot rule out secondary to medications including hydrochlorothiazide, fluoxetine, pain medications including oxycodone. Hold off on hydrochlorothiazide for now. Start on normal saline at 75 cc/h. Check urinalysis, urine lites, urine creatinine. Serum osmolality low at 255. (2) Increased nausea and vomiting: Could be secondary to hyponatremia versus gastritis from high-dose of aspirin. Start on IV Protonix 40 mg daily, Maalox every 6 hours for now. Zofran as needed. Start on full liquid diet with protein shakes. (3) Benign essential hypertension: Goal blood pressure less than 140/90 mmHg. Patient takes combination of bisoprolol/hydrochlorothiazide at home. Continue with bisoprolol. Add amlodipine 10 mg oral daily. Will uptitrate her blood pressure medications as per goals. (4) CVA (cerebral vascular accident): At home patient is on Plavix 75 mg daily along with aspirin 325 mg which was recently started as per orthopedics for DVT prevention. Hold off on Plavix for now. Patient is on aspirin. Plan Check iron panel, vitamin B12, folate level, TSH, A1c, lipid panel, urine creatinine, urine lites, drug screen, urine Legionella, bacterial antigen. Analgesia: [place] 5 mg every 8 hours as needed, Tylenol Glycemic control: Not needed, check A1c. Nutrition: Full liquid diet along with protein shake with each meal CODE STATUS: Discussed in detail with patient and patient's family at bedside. Full code. Patient's DPOA will be Ms. Smith who is patient's sister PUD prophylaxis: Protonix 40 mg IV daily DVT prophylaxis: Heparin 5000 every 12 hourly Discharge planning: Family wants patient to be placed to SNF for short while while she recovers from recent patellar surgery. Her extended family lives out of [place] and patient is by herself. Patient is agreeable. Admit to [facility] floor. Addressed multiple concerns brought in by patient's family members. We discussed as of now patient does not need neurological evaluation for possible dementia as examination will be masked by symptoms from hyponatremia and it should be done as an outpatient. Also deferred MRI as per neurological evaluation as an outpatient. Discussed that poor oral intake is also secondary to hyponatremia and patient does not need any appetite stimulant as of now. Also discussed appetite stimulant is usually the last resource. For now will be to start her on full liquid diet and then go from there. Discussed that it would be okay to stop Plavix for now while patient is on full dose aspirin. Discussed dose of fluoxetine needs to be changed by her primary care provider as an outpatient once hyponatremia has resolved. This documentation was created by [employer] statistics intern software. Every effort was made to ensure accuracy of statistics intern. Any obvious errors or omissions should be clarified with the author of the document. Attestations Medical Necessity Statement*: Requires admission for more than 2 midnights for poor oral intake secondary to nausea and vomiting from acute hyponatremia while patient needs IV fluids Time Spent in Patient Care: Greater than 35 minutes Coding Level of Care Code Acute Microbiology Quality Control Technician for Chg Fwd Diagnoses Acute hyponatremia E87.1 Increased nausea and vomiting R11.2 Benign essential hypertension I10 CVA (cerebral vascular accident) I63.9
[2022-05-29 17:24] LABS: Glucose Urine UA Norm (Normal); Ketones Urine Negative (Negative); Protein Urine Neg (Negative); Urine Appearance Clear (CLEAR); Urine Color Yellow (Yellow); pH Urine 7 (5-7)
[2022-05-29 17:25] LABS: Add Urine Culture? No; Add Urine Microscopic? YES; Bacteria Urine TRACE /hpf; Bilirubin Urine Neg (Negative); Blood Urine Trace (Negative); Leukocyte Esterase Urine Negative (Negative); Nitrate Urine Negative (Negative); Squamous Epithelial Cell Urine 0-4 /hpf (0-5); Urobilinogen Urine Norm (Negative); WBC Urine 0-4 /hpf (0-5)
[2022-05-29 17:57] LABS: Amphetamines Screen Urine Negative (Negative); Barbiturates Screen Urine Negative (Negative); Benzodiazepines Screen Urine Positive (Negative); Cocaine Screen Urine Negative (Negative); Opiate Screen Urine Negative (Negative); PCP Screen Urine Negative (Negative); THC Screen Urine Negative (Negative)
[2022-05-29 18:10] LABS: Potassium, Radom Urine 28 mmol/L; Urine Creatinine 59 mg/dL (28-217)
[2022-05-29 18:17] LABS: Urine Random Chloride 15 mmol/L; Urine Random Sodium 10 mmol/L
[2022-05-29 18:21] LABS: NT Pro B Type Natriuretic Pept 297 pg/mL (0-450); Procalcitonin 0.05 ng/mL (0-0.5); Thyroid Stimulating Hormone 3.74 uIU/mL (0.27-4.20); Vitamin B12 1444 pg/mL (232-1245)
[2022-05-29 18:36] LABS: Iron 78 ug/dL (37-145); Percent Saturation 23.4 % (20-50); Total Iron Binding Capacity 333 mcg/dl; Unsaturated Iron Binding 255 ug/dL (112-347)
[2022-05-29] MEDS: heparin 5,000 unit/mL INJ 1 mL 5000 UNIT SUBCUT (18:42)
[2022-05-29] MEDS: amlodipine 10 mg Tablet PO (18:42)
[2022-05-29] MEDS: docusate sodium 100 mg Capsule PO (18:42)
[2022-05-29] MEDS: alum-mag-hydroxide-sime 30 mL UDC PO (18:42)
[2022-05-29] MEDS: pantoprazole 40 mg SDV IVP (18:44)
[2022-05-29] MEDS: sodium chloride 0.9% 1,000 ML 150 ML IV (18:48)
[2022-05-29 19:07] LABS: Folate Level > 20.0 ng/mL (4.8-37.3)
[2022-05-29] MEDS: atorvastatin 40 mg Tablet 20 MG PO (21:23)
[2022-05-30] VITALS (10 sets, daily range): BP systolic 117–181; BP diastolic 66–83; PULSE 69–75; RESP 15–18; TEMP 36.3–36.8; O2SAT 94–99
[2022-05-30] MEDS: sodium chloride 0.9% 1,000 ML 150 ML IV (00:49)
[2022-05-30] MEDS: heparin 5,000 unit/mL INJ 1 mL 5000 UNIT SUBCUT ×2 (05:55→18:30)
[2022-05-30 06:17] LABS: Basophils # 0.1 10^3/uL (0.0-0.1); Basophils % 0.6 %; Eosinophils # 0.1 10^3/uL (0.0-0.8); Eosinophils % 0.8 %; Hematocrit 34.6 % (37.0-47.0); Hemoglobin 11.2 g/dL (11.5-15.3); Lymphocytes # 1.3 10^3/uL (0.8-4.8); Lymphocytes % 15.4 %; Mean Corpuscular HGB Conc 32.4 g/dL (30.0-36.0); Mean Corpuscular Hemoglobin 28.8 pg (28.0-34.0); Mean Corpuscular Volume 88.9 fl (81-99); Mean Platelet Volume 8.5 fL (7.4-10.4); Monocytes # 0.6 10^3/uL (0.2-0.9); Monocytes % 7.3 %; Neutrophils # 6.43 10^3/uL (1.8-7.7); Neutrophils % 74.4 %; Nucleated Red Blood Cells % 0 %; Platelet Count 412 10^3/cmm (130-400); Red Blood Count 3.89 10^6/uL (4.1-5.3); Red Cell Distribution Width 13.2 % (12.1-15.1); White Blood Count 8.6 10^3/uL (4.0-10.0)
[2022-05-30 06:27] LABS: Estmated Average Glucose 82; Hemoglobin A1C 4.5 % (4.0-6.0)
[2022-05-30 06:36] LABS: Alanine Aminotransferase 14 U/L (0-33); Albumin Level 3.5 g/dL (3.5-5.2); Alkaline Phosphatase 123 U/L (35-105); Anion Gap 14.8 (5-19); Aspartate Amino Transferase 30 U/L (0-32); Blood Urea Nitrogen 8 mg/dL (8-23); Calcium 8.7 mg/dL (8.5-10.5); Carbon Dioxide 22 mmol/L (22-29); Chloride 94 mmol/L (98-107); Chol HDL Ratio 2.36 mg/dL (0.0-4.40); Cholesterol 184 mg/dL (0-200); Globulin 2.4 g/dL (1.3-4.6); Glucose 87 mg/dL (65-115); HDL Cholesterol 78 mg/dL (60-100); LDL Cholesterol Calculated 86 mg/dL (50-129); Magnesium 2.2 mg/dL (1.7-2.3); Osmolality Calculated 262 mOsm/kg (285-295); Phosphorus 2.3 mg/dL (2.5-4.5); Potassium 3.8 mmol/L (3.5-5.1); Sodium 127 mmol/L (136-145); Total Bilirubin 0.5 mg/dL (0.15-1.2); Total Protein 5.9 g/dL (6.6-8.7); Triglycerides 98 mg/dL (0-150); VLDL Cholestrol Calculation 20 mg/dL (0-30)
[2022-05-30] MEDS: sodium chloride 0.9% 1,000 ML 75 ML IV ×2 (09:21→23:02)
[2022-05-30] MEDS: amlodipine 10 mg Tablet PO (09:23)
[2022-05-30] MEDS: aspirin 325 mg EC Tablet PO (09:24)
[2022-05-30] MEDS: docusate sodium 100 mg Capsule PO ×2 (09:24→18:30)
[2022-05-30] MEDS: fluoxetine 20 mg Capsule 60 MG PO (09:24)
--- NOTE | 2022-05-30 15:00 | P.PN_ITS ---
Subjective Subjective: No acute events overnight. Seen with sister at bedside. Patient is able to intake orally without any more episodes of nausea and vomiting. But as per the sister at bedside patient did not like the food for did not eat much for breakfast. Did not get protein shakes with breakfast today as per the sister. Vitals/I&O/Wt Last Vital Signs Temp 97.5 F L 05/30/22 11:39 Pulse 69 05/30/22 11:39 Resp 15 05/30/22 11:39 BP 165/83 05/30/22 11:39 Pulse Ox 99 05/30/22 11:39 O2 Del Method 05/30/22 11:39 05/30/22 05/30/22 05/30/22 06:59 14:59 22:59 Intake Total 1902.5 / 2902.5 1310 / 1310 Output Total 250 / 250 Balance 1902.5 / 2902.5 1060 / 1060 Weight last 48 hrs Weight 68.748 kg Weight 68.765 kg Weight 59.874 kg Physical Exam Narrative: EXAM NARRATIVE: General: No acute distress, AO x 2-3, pleasant HEENT: PERRLA, pupils bilaterally equal and reactive Chest: Bilateral normal vesicular breath sounds, no rhonchi CVS: S1-S2 regular, no murmurs, no tachycardia, no gallops, no rubs Abdomen: Soft, nontender, no organomegaly, bowel sounds present, morbidly obese Neuro: No focal deficits, no facial deformity, AO x3, power 5/5 in all limbs Data 05/30/22 05:46 05/30/22 05:46 Micro: Microbiology 05/29/22 18:35 MRSA Culture - Final Nose 05/29/22 16:13 Bacterial Antigens - Final Urine Kidney 05/29/22 16:13 Legionella Urinary Antigen - Final Unknown Source A&P Assessment and plan (1) Acute hyponatremia: Most likely secondary to dehydration from poor oral intake. Cannot rule out secondary to medications including hydrochlorothiazide, fluoxetine, pain medications including oxycodone. Hold off on hydrochlorothiazide for now. Continue with normal saline at 75 cc/h. Appreciate urine lites and serum osmolality. Sodium levels improving to 129 today. Will repeat BMP in afternoon. (2) Increased nausea and vomiting: Could be secondary to hyponatremia versus gastritis from high-dose of aspirin. Continue with IV Protonix 40 mg daily, Maalox every 6 hours for now. Zofran as needed. Start on full liquid diet with protein shakes with each meal. (3) Benign essential hypertension: Goal blood pressure less than 140/90 mmHg. Patient takes combination of bisoprolol/hydrochlorothiazide at home. Blood pressure still elevated. Was switched from bisoprolol to Coreg 6.25 mg twice daily. Continue with amlodipine 10 mg daily. (4) CVA (cerebral vascular accident): At home patient is on Plavix 75 mg daily along with aspirin 325 mg which was recently started as per orthopedics for DVT prevention. Hold off on Plavix for now. Patient is on aspirin. Plan Analgesia: [place] 5 mg every 8 hours as needed, Tylenol Glycemic control: Not needed, check A1c. Nutrition: Full liquid diet along with protein shake with each meal CODE STATUS: Discussed in detail with patient and patient's family at bedside. Full code. Patient's DPOA will be Ms. Smith who is patient's sister PUD prophylaxis: Protonix 40 mg IV daily DVT prophylaxis: Heparin 5000 every 12 hourly Discharge planning: Patient sister still insistent outpatient going to SNF. Sister is concerned that patient lives by herself and there is no family members around to take care of her currently especially with her recent surgery for patella. Patient is AOx3. Patient worked well with physical therapy. Patient thinks she can take care of herself at home. We discussed that I cannot get patient to SNF against her wishes. For now we will continue the medical and physical therapy as needed and to try to get her to SNF if patient is agreeable but if not plan we will discharge home with home health. Admit to [facility] floor. Addressed multiple concerns brought in by patient's family members. We discussed as of now patient does not need neurological evaluation for possible dementia as examination will be masked by symptoms from hyponatremia and it should be done as an outpatient. Also deferred MRI as per neurological evaluation as an outpatient. Discussed that poor oral intake is also secondary to hyponatremia and patient does not need any appetite stimulant as of now. Also discussed appetite stimulant is usually the last resource. For now will be to start her on full liquid diet and then go from there. Discussed that it would be okay to stop Plavix for now while patient is on full dose aspirin. Discussed dose of fluoxetine needs to be changed by her primary care provider as an outpatient once hyponatremia has resolved. This documentation was created by [employer] curber software. Every effort was made to ensure accuracy of curber. Any obvious errors or omissions should be clarified with the author of the document. Attestations Medical Necessity Statement*: Requires further hospitalization for management of acute hyponatremia secondary to poor oral intake along with nausea and vomiting as patient requires further IV fluids Time Spent in Patient Care: Greater than 35 minutes (Most of the time spent convincing and counseling patient's family at bedside) Coding Level of Care Code Acute Installation Superintendent for Shruthi Fwd Diagnoses Acute hyponatremia E87.1 Increased nausea and vomiting R11.2 Benign essential hypertension I10 CVA (cerebral vascular accident) I63.9
[2022-05-30 15:59] LABS: Anion Gap 13.6 (5-19); Blood Urea Nitrogen 8 mg/dL (8-23); Calcium 8.8 mg/dL (8.5-10.5); Carbon Dioxide 22 mmol/L (22-29); Chloride 95 mmol/L (98-107); Glucose 100 mg/dL (65-115); Osmolality Calculated 262 mOsm/kg (285-295); Potassium 3.6 mmol/L (3.5-5.1); Sodium 127 mmol/L (136-145)
[2022-05-30] MEDS: carvedilol 6.25 mg Tablet PO (18:30)
[2022-05-30] MEDS: pantoprazole 40 mg SDV IVP (18:30)
[2022-05-30] MEDS: tizanidine 4 mg Tablet 2 MG PO (18:49)
--- NOTE | 2022-05-30 21:04 | PC.NURSE ---
REPORT TAKEN FROM BRADLEY WONG. PATIENT A&OX3 TO NAME, , LOCATION. PATIENT STATED THAT THE DATE WAS August, NURSE INFORMED PATIENT OF ACTUAL DATE. SISTER AT BEDSIDE, STATED CONCERN ABOUT PATIENT GETTING CONFUSED AND REPORTED PATIENT ATTEMPTED TO GET OUT OF BED DURING NIGHT. SISTER REQUESTED TO STAY AT BEDSIDE AND PUT ALL FOUR RAILS UP. PATIENT AND SISTER INFORMED VISITING HOURS WERE OVER, AND THIS NURSE EDUCATED THAT ALL FOUR RAILS UP IS CONSIDERED RESTRAINT. UPON REQUEST, 3 SIDE RAILS UP AND BED ALARM SET. THIS NURSE EDUCATED PATIENT TO PRESS CALL LIGHT IF PATIENT REQUESTS ANYTHING OR NEEDS TO GET UP TO COMMODE. VSS, BED LOCKED AND IN LOWEST POSITION, CALL LIGHT ACCESSIBLE TO PATIENT. SISTER NO LONGER AT BEDSIDE, SISTER LEFT PHONE NUMBER WITH NURSE. PATIENT STATES NO FURTHER NEEDS AT THIS TIME.
[2022-05-30] MEDS: HYDROcodone-acetaminophen 5-325 mg Tablet 1 TAB PO (21:43)
[2022-05-30] MEDS: atorvastatin 40 mg Tablet 20 MG PO (21:44)
--- NOTE | 2022-05-30 23:07 | PC.NURSE ---
PATIENT COMPLAINED OF PAIN AT IV SITE. IV SITE INSPECTED AND FLUSHED, BLOOD RETURN PRESENT. NURSE INFORMED PATIENT IF THE SITE STILL BOTHERING HER, SITE WILL BE REINSPECTED AND REEVALUATED. PATIENT REPORTS NO FURTHER NEEDS AT THIS TIME.
[2022-05-31] VITALS (10 sets, daily range): BP systolic 126–174; BP diastolic 68–84; PULSE 69–92; RESP 16–20; TEMP 36.4–36.9; O2SAT 97–100
[2022-05-31] MEDS: heparin 5,000 unit/mL INJ 1 mL 5000 UNIT SUBCUT ×2 (05:59→18:21)
[2022-05-31 06:21] LABS: Basophils # 0.1 10^3/uL (0.0-0.1); Basophils % 0.7 %; Eosinophils # 0.1 10^3/uL (0.0-0.8); Eosinophils % 1.9 %; Hematocrit 33.1 % (37.0-47.0); Hemoglobin 10.8 g/dL (11.5-15.3); Lymphocytes # 1.4 10^3/uL (0.8-4.8); Lymphocytes % 19.4 %; Mean Corpuscular HGB Conc 32.6 g/dL (30.0-36.0); Mean Corpuscular Hemoglobin 29.4 pg (28.0-34.0); Mean Corpuscular Volume 90.2 fl (81-99); Mean Platelet Volume 8.6 fL (7.4-10.4); Monocytes # 0.5 10^3/uL (0.2-0.9); Monocytes % 6.8 %; Neutrophils # 5.19 10^3/uL (1.8-7.7); Neutrophils % 70.1 %; Nucleated Red Blood Cells % 0 %; Platelet Count 366 10^3/cmm (130-400); Red Blood Count 3.67 10^6/uL (4.1-5.3); Red Cell Distribution Width 13.1 % (12.1-15.1); White Blood Count 7.4 10^3/uL (4.0-10.0)
[2022-05-31 06:42] LABS: Alanine Aminotransferase 13 U/L (0-33); Albumin Level 3.4 g/dL (3.5-5.2); Alkaline Phosphatase 119 U/L (35-105); Anion Gap 13.7 (5-19); Aspartate Amino Transferase 27 U/L (0-32); Blood Urea Nitrogen 6 mg/dL (8-23); Calcium 8.8 mg/dL (8.5-10.5); Carbon Dioxide 22 mmol/L (22-29); Chloride 95 mmol/L (98-107); Globulin 2.2 g/dL (1.3-4.6); Glucose 86 mg/dL (65-115); Osmolality Calculated 261 mOsm/kg (285-295); Potassium 3.7 mmol/L (3.5-5.1); Sodium 127 mmol/L (136-145); Total Bilirubin 0.5 mg/dL (0.15-1.2); Total Protein 5.6 g/dL (6.6-8.7)
[2022-05-31] MEDS: docusate sodium 100 mg Capsule PO ×2 (09:50→18:21)
[2022-05-31] MEDS: amlodipine 10 mg Tablet PO (09:51)
[2022-05-31] MEDS: carvedilol 6.25 mg Tablet PO ×2 (09:51→18:22)
[2022-05-31] MEDS: aspirin 325 mg EC Tablet PO (09:51)
[2022-05-31] MEDS: fluoxetine 20 mg Capsule 60 MG PO (09:52)
--- NOTE | 2022-05-31 12:20 | P.PN_ITS ---
Subjective Subjective: No acute events overnight. Patient has remained hemodynamically stable and afebrile. Blood pressure mildly elevated. Today morning again around examination patient is awake and alert. Able to have complete conversation. Patient denies of having any nausea, vomiting, headache. Family at bedside. Patient has been working well with physical therapy. Patient has been consuming full liquid diet well. Has had at least 3 protein shakes since today morning for breakfast as per the family. Vitals/I&O/Wt Last Vital Signs Temp 97.7 F 05/31/22 11:54 Pulse 71 05/31/22 11:54 Resp 16 05/31/22 11:54 BP 134/68 05/31/22 11:54 Pulse Ox 100 05/31/22 11:54 O2 Del Method 05/31/22 11:54 05/30/22 05/31/22 05/31/22 22:59 06:59 14:59 Intake Total 1000 / 2310 140 / 140 Balance 1000 / 2060 140 / 140 Weight last 48 hrs Weight 71.94 kg Weight 68.748 kg Weight 68.765 kg Weight 59.874 kg Physical Exam Narrative: EXAM NARRATIVE: General: No acute distress, AO x 3, pleasant HEENT: PERRLA, pupils bilaterally equal and reactive Chest: Bilateral normal vesicular breath sounds, no rhonchi CVS: S1-S2 regular, no murmurs, no tachycardia, no gallops, no rubs Abdomen: Soft, nontender, no organomegaly, bowel sounds present, morbidly obese Neuro: No focal deficits, no facial deformity, AO x3, power 5/5 in all limbs Data 05/31/22 05:44 05/31/22 05:44 Micro: Microbiology 05/29/22 18:35 MRSA Culture - Final Nose A&P Assessment and plan (1) Acute hyponatremia: Most likely secondary to dehydration from poor oral intake. Cannot rule out secondary to medications including hydrochlorothiazide, fluoxetine, pain medications including oxycodone. Hold off on hydrochlorothiazide for now. Continue with normal saline at 75 cc/h. Appreciate urine lites and serum osmolality. Sodium levels improving to 129 today. Will repeat BMP in afternoon. (2) Increased nausea and vomiting: Could be secondary to hyponatremia versus gastritis from high-dose of aspirin. Continue with IV Protonix 40 mg daily, Maalox every 6 hours for now. Zofran as needed. Start on full liquid diet with protein shakes with each meal. (3) Benign essential hypertension: Goal blood pressure less than 140/90 mmHg. Patient takes combination of bisoprolol/hydrochlorothiazide at home. Blood pressure still elevated. Was switched from bisoprolol to Coreg 6.25 mg twice daily. Continue with amlodipine 10 mg daily. (4) CVA (cerebral vascular accident): At home patient is on Plavix 75 mg daily along with aspirin 325 mg which was recently started as per orthopedics for DVT prevention. Hold off on Plavix for now. Patient is on aspirin. Plan Analgesia: [place] 5 mg every 8 hours as needed, Tylenol Glycemic control: Not needed, check A1c. Nutrition: Full liquid diet along with protein shake with each meal CODE STATUS: Discussed in detail with patient and patient's family at bedside. Full code. Patient's DPOA will be Ms. Smith who is patient's sister PUD prophylaxis: Protonix 40 mg IV daily DVT prophylaxis: Heparin 5000 every 12 hourly Discharge planning: Patient sister still insistent outpatient going to SNF. Sister is concerned that patient lives by herself and there is no family members around to take care of her currently especially with her recent surgery for patella. Patient is AOx3. Patient worked well with physical therapy. Patient thinks she can take care of herself at home. We discussed that I cannot get patient to SNF against her wishes. For now we will continue the medical and physical therapy as needed and to try to get her to SNF if patient is agreeable but if not plan we will discharge home with home health. 05/31: Patient and family are both agreeable for discharge to home with health now. Family requesting home health with physical therapy at this time. Case management management. Plan for the day: Stop IV fluids. Continue with physical therapy. Add salt tablets 1 g twice daily. Continue with Coreg 6.25 mg twice daily, amlodipine 10 mg daily. Add losartan 25 mg daily. Monitor blood pressures. Monitor BMP daily. Continue with IV Protonix. Continue with full liquid diet with protein shakes. Addressed multiple concerns brought in by patient's family members. We discusse d as of now patient does not need neurological evaluation for possible dementia as examination will be masked by symptoms from hyponatremia and it should be done as an outpatient. Also deferred MRI as per neurological evaluation as an outpatient. Discussed that poor oral intake is also secondary to hyponatremia and patient does not need any appetite stimulant as of now. Also discussed appetite s timulant is usually the last resource. For now will be to start her on full liquid diet and then go from there. Discussed that it would be okay to stop Plavix for now while patient is on full dose aspirin. Discussed dose of fluoxetine needs to be changed by her primary care provider as an outpatient once hyponatremia has resolved. This documentation was created by [employer] cane piler software. Every effort was made to ensure accuracy of cane piler. Any obvious errors or omissions should be clarified with the author of the document. Attestations Medical Necessity Statement*: Requires further hospitalization for management of hyponatremia leading to poor oral intake which is resolving now while safe discharge planning is sought. Time Spent in Patient Care: Greater than 35 minutes Coding Level of Care Code Acute Residential Leasing Manager for Shruthi [place] Diagnoses Acute hyponatremia E87.1 Increased nausea and vomiting R11.2 Benign essential hypertension I10 CVA (cerebral vascular accident) I63.9
[2022-05-31] MEDS: losartan 50 mg Tablet 25 MG PO (13:05)
[2022-05-31] MEDS: sodium chloride 0.9% 1,000 ML 75 ML IV (13:06)
[2022-05-31] MEDS: sodium chloride 1 gm Tablet PO (18:22)
--- NOTE | 2022-05-31 20:07 | PC.NURSE ---
REPORT TAKEN FROM BRADLEY WONG. PATIENT A&O, VSS AT THIS TIME. PATIENT RESTING IN BED, BED LOCKED IN LOWEST POSITION WITH SIDE RAILS UP, BED ALARM RESET, AND CALL LIGHT WITHIN REACH. PATIENT EDUCATED TO PRESS CALL LIGHT IF ANY NEEDS OCCUR OR PATIENT DESIRES TO GET OUT OF BED. PATIENT STATES NO FURTHER NEEDS AT THIS TIME.
[2022-05-31] MEDS: atorvastatin 40 mg Tablet 20 MG PO (21:02)
[2022-05-31] MEDS: HYDROcodone-acetaminophen 5-325 mg Tablet 1 TAB PO (21:02)
[2022-05-31] MEDS: acetaminophen 325 mg Tablet 650 MG PO (23:56)
[2022-06-01] VITALS (9 sets, daily range): BP systolic 96–158; BP diastolic 57–80; PULSE 70–96; RESP 15–18; TEMP 36.6–37.1; O2SAT 91–100
--- NOTE | 2022-06-01 04:55 | PC.NURSE ---
Did a bed change on patient due to water being spilled in the bed. Patient stated that she is in pain. I notified the nurse Rachel HUERTA that patient is in pain.
[2022-06-01] MEDS: heparin 5,000 unit/mL INJ 1 mL 5000 UNIT SUBCUT ×2 (05:27→18:31)
[2022-06-01 06:45] LABS: Alanine Aminotransferase 12 U/L (0-33); Albumin Level 3.2 g/dL (3.5-5.2); Alkaline Phosphatase 118 U/L (35-105); Anion Gap 12.5 (5-19); Aspartate Amino Transferase 25 U/L (0-32); Blood Urea Nitrogen 8 mg/dL (8-23); Calcium 8.8 mg/dL (8.5-10.5); Carbon Dioxide 23 mmol/L (22-29); Chloride 94 mmol/L (98-107); Globulin 2.5 g/dL (1.3-4.6); Glucose 88 mg/dL (65-115); Osmolality Calculated 260 mOsm/kg (285-295); Potassium 3.5 mmol/L (3.5-5.1); Sodium 126 mmol/L (136-145); Total Bilirubin 0.4 mg/dL (0.15-1.2); Total Protein 5.7 g/dL (6.6-8.7)
--- NOTE | 2022-06-01 09:08 | PC.SOCIAL ---
Pg 2 IMM Explained to pt Pg 2 IMM. No questions voiced. Provided pt a copy. Initialed, dated, & timed a copy & placed in chart.
[2022-06-01] MEDS: amlodipine 10 mg Tablet PO (09:41)
[2022-06-01] MEDS: sodium chloride 1 gm Tablet PO ×2 (09:41→18:31)
[2022-06-01] MEDS: aspirin 325 mg EC Tablet PO (09:41)
[2022-06-01] MEDS: losartan 50 mg Tablet 25 MG PO (09:41)
[2022-06-01] MEDS: fluoxetine 20 mg Capsule 60 MG PO (09:42)
[2022-06-01] MEDS: docusate sodium 100 mg Capsule PO ×2 (09:43→18:31)
[2022-06-01] MEDS: carvedilol 6.25 mg Tablet PO ×2 (09:43→20:50)
[2022-06-01] MEDS: ondansetron 2 mg/ML SDV 2 mL 4 MG IVP (11:31)
--- NOTE | 2022-06-01 12:22 | PM.PN ---
Subjective Subjective: No acute events overnight. Patient continues to do well with oral liquid diet. Continues to consume her protein shakes. As per patient's sister who is at bedside patient seems more tired and weak today. Sister is concerned about sodium levels still not being back to her baseline. As per sister patient does not like water is coming in for liquid diet and is requesting to be transitioned over to solid foods if possible. Vitals/I&O/Wt Last Vital Signs Temp 98.0 F 06/01/22 12:00 Pulse 70 06/01/22 12:00 Resp 15 06/01/22 12:00 BP 96/57 06/01/22 12:00 Pulse Ox 97 06/01/22 12:00 O2 Del Method 06/01/22 12:00 05/31/22 06/01/22 06/01/22 22:59 06:59 14:59 Intake Total 480 / 1740 360 / 360 Output Total 700 / 700 Balance -220 / 1040 360 / 360 Weight last 48 hrs Weight 71.94 kg Physical Exam Narrative: EXAM NARRATIVE: General: No acute distress, AO x 3, pleasant HEENT: PERRLA, pupils bilaterally equal and reactive Chest: Bilateral normal vesicular breath sounds, no rhonchi CVS: S1-S2 regular, no murmurs, no tachycardia, no gallops, no rubs Abdomen: Soft, nontender, no organomegaly, bowel sounds present, morbidly obese Neuro: No focal deficits, no facial deformity, AO x3, power 5/5 in all limbs Data 05/31/22 05:44 06/01/22 05:25 A&P Assessment and plan (1) Acute hyponatremia: Most likely secondary to dehydration from poor oral intake. Cannot rule out secondary to medications including hydrochlorothiazide, fluoxetine, pain medications including oxycodone. Hold off on hydrochlorothiazide for now. (2) Increased nausea and vomiting: Could be secondary to hyponatremia versus gastritis from high-dose of aspirin. Continue with IV Protonix 40 mg daily, Maalox every 6 hours for now. Zofran as needed. Advance diet (3) Benign essential hypertension: Goal blood pressure less than 140/90 mmHg. Patient takes combination of bisoprolol/hydrochlorothiazide at home. Blood pressure better controlled Was switched from bisoprolol to Coreg 6.25 mg twice daily. Continue with amlodipine 10 mg daily. (4) CVA (cerebral vascular accident): At home patient is on Plavix 75 mg daily along with aspirin 325 mg which was recently started as per orthopedics for DVT prevention. Hold off on Plavix for now. Patient is on aspirin. Plan Analgesia: Castile 5 mg every 8 hours as needed, Tylenol Glycemic control: Not needed, check A1c. Nutrition: Full liquid diet along with protein shake with each meal CODE STATUS: Discussed in detail with patient and patient's family at bedside. Full code. Patient's DPOA will be Ms. Smith who is patient's sister PUD prophylaxis: Protonix 40 mg IV daily DVT prophylaxis: Heparin 5000 every 12 hourly Discharge planning: Patient sister still insistent outpatient going to SNF. Sister is concerned that patient lives by herself and there is no family members around to take care of her currently especially with her recent surgery for patella. Patient is AOx3. Patient worked well with physical therapy. Patient thinks she can take care of herself at home. We discussed that I cannot get patient to SNF against her wishes. For now we will continue the medical and physical therapy as needed and to try to get her to SNF if patient is agreeable but if not plan we will discharge home with home health. 05/31: Patient and family are both agreeable for discharge to home with health now. Family requesting home health with physical therapy at this time. Case management management. Plan for the day: Continue to hold off on IV fluids. Continue with oral salt tablets. Repeat sodium level at 4 PM. Continue with Coreg 6.25 mg twice daily, amlodipine 10 mg daily. Blood pressure is better today so we will Any further losartan. Switch to mechanical soft diet with protein shakes. Continue with IV Protonix. Addressed multiple concerns brought in by patient's family members. We discussed as of now patient does not need neurological evaluation for possible dementia as examination will be masked by symptoms from hyponatremia and it should be done as an outpatient. Also deferred MRI as per neurological evaluation as an outpatient. Discussed that poor oral intake is also secondary to hyponatremia and patient does not need any appetite stimulant as of now. Also discussed appetite stimulant is usually the last resource. For now will be to start her on full liquid diet and then go from there. Discussed that it would be okay to stop Plavix for now while patient is on full dose aspirin. Discussed dose of fluoxetine needs to be changed by her primary care provider as an outpatient once hyponatremia has resolved. This documentation was created by [employer] respiratory care faculty software. Every effort was made to ensure accuracy of respiratory care faculty. Any obvious errors or omissions should be clarified with the author of the document. Attestations Medical Necessity Statement*: Requires further hospitalization for hyponatremia, poor oral intake in a patient with recent history of patellar surgery, mild cognitive disorder because of CVA while safe discharge planning is sought. Time Spent in Patient Care: Greater than 35 minutes Coding Level of Care Code Acute Doctor Assistant for Shruthi Urrutiad Diagnoses Acute hyponatremia E87.1 Increased nausea and vomiting R11.2 Benign essential hypertension I10 CVA (cerebral vascular accident) I63.9
[2022-06-01] MEDS: sodium chloride 0.9% 1,000 ML 50 ML IV (13:25)
[2022-06-01 17:19] LABS: Sodium 124 mmol/L (136-145)
[2022-06-01] MEDS: pantoprazole 40 mg SDV IVP (18:31)
[2022-06-01] MEDS: HYDROcodone-acetaminophen 5-325 mg Tablet 1 TAB PO (20:48)
[2022-06-01] MEDS: atorvastatin 40 mg Tablet 20 MG PO (20:49)
[2022-06-02] VITALS: BP 142/76; PULSE 69; RESP 18; TEMP 36.6; O2SAT 98
[2022-06-02] MEDS: tizanidine 4 mg Tablet 2 MG PO (00:42)
[2022-06-02] MEDS: acetaminophen 325 mg Tablet 650 MG PO (00:42)
[2022-06-02 04:00] VITALS: BP 107/58; PULSE 69; RESP 14; TEMP 36.3; O2SAT 99
[2022-06-02 05:11] VITALS: PULSE 70
[2022-06-02 05:11] LABS: Basophils # 0.1 10^3/uL (0.0-0.1); Basophils % 0.8 %; Eosinophils # 0.1 10^3/uL (0.0-0.8); Eosinophils % 1.8 %; Hematocrit 30.2 % (37.0-47.0); Lymphocytes # 1.5 10^3/uL (0.8-4.8); Lymphocytes % 24.3 %; Mean Corpuscular HGB Conc 33.1 g/dL (30.0-36.0); Mean Corpuscular Hemoglobin 29.1 pg (28.0-34.0); Mean Corpuscular Volume 87.8 fl (81-99); Mean Platelet Volume 8.6 fL (7.4-10.4); Monocytes # 0.5 10^3/uL (0.2-0.9); Monocytes % 7.7 %; Neutrophils # 4.02 10^3/uL (1.8-7.7); Neutrophils % 64.1 %; Nucleated Red Blood Cells % 0 %; Platelet Count 337 10^3/cmm (130-400); Red Blood Count 3.44 10^6/uL (4.1-5.3); Red Cell Distribution Width 13.4 % (12.1-15.1); White Blood Count 6.3 10^3/uL (4.0-10.0)
[2022-06-02 05:30] LABS: Alanine Aminotransferase 11 U/L (0-33); Albumin Level 3.2 g/dL (3.5-5.2); Alkaline Phosphatase 107 U/L (35-105); Anion Gap 11.7 (5-19); Aspartate Amino Transferase 19 U/L (0-32); Blood Urea Nitrogen 8 mg/dL (8-23); Calcium 8.7 mg/dL (8.5-10.5); Carbon Dioxide 25 mmol/L (22-29); Chloride 99 mmol/L (98-107); Globulin 2.2 g/dL (1.3-4.6); Glucose 81 mg/dL (65-115); Osmolality Calculated 271 mOsm/kg (285-295); Potassium 3.7 mmol/L (3.5-5.1); Sodium 132 mmol/L (136-145); Total Bilirubin 0.3 mg/dL (0.15-1.2); Total Protein 5.4 g/dL (6.6-8.7)
[2022-06-02] MEDS: heparin 5,000 unit/mL INJ 1 mL 5000 UNIT SUBCUT (06:15)
[2022-06-02] MEDS: HYDROcodone-acetaminophen 5-325 mg Tablet 1 TAB PO (06:29)
[2022-06-02] MEDS: sodium chloride 0.9% 1,000 ML 50 ML IV (06:30)
[2022-06-02 07:27] VITALS: BP 145/69; PULSE 69; RESP 18; TEMP 36.7; O2SAT 95
[2022-06-02] MEDS: carvedilol 6.25 mg Tablet PO (08:30)
[2022-06-02] MEDS: fluoxetine 20 mg Capsule 60 MG PO (08:30)
[2022-06-02] MEDS: sodium chloride 1 gm Tablet PO (08:30)
[2022-06-02] MEDS: amlodipine 10 mg Tablet PO (08:30)
[2022-06-02] MEDS: docusate sodium 100 mg Capsule PO (08:30)
[2022-06-02] MEDS: aspirin 325 mg EC Tablet PO (08:31)
[2022-06-02] MEDS: ondansetron 2 mg/ML SDV 2 mL 4 MG IVP (11:46)
[2022-06-02 12:00] VITALS: BP 121/61; PULSE 70; RESP 17; O2SAT 98
--- NOTE | 2022-06-02 13:43 | P.DS_ITS ---
Discharge Providers Date of Admission: 05/29/22 15:40 Date of Discharge: June 02, 2022 Attending Provider at Admission: Waldo Sheth MD Attending Provider at Discharge: Joel Lin Primary Care Provider: Migel Flores MD Diagnoses at Discharge Discharge Diagnosis (1) Acute hyponatremia: Status: Acute (2) Increased nausea and vomiting: Status: Acute (3) Benign essential hypertension: Status: Acute (4) CVA (cerebral vascular accident): Status: Acute Reason for Visit Reason for Visit: n/v/d Hospital Course Hospital Course Pleasant 76-year-old lady with past history of CVA, HTN, SSS, PPM, recent patellar fracture status post ORIF, was brought in for for evaluation due to decreased appetite, nausea, episodes of vomiting. She is reported to have frequent constipation, currently has not had a bowel movement in 6 days, although patient states that his problems are not anything new, she has had these GI problems since childhood. She had open cholecystectomy in her early 20s as well although states has had symptoms even before that. She also has a history of depression for which she has been taking fluoxetine. On presentation here she was found to have hyponatremia 122, prior sodium level was 136 on 05/16. She was started on IV fluid hydration for dehydration, hyponatremia, subsequently started on sodium chloride tablets twice daily. GI soft diet was started, nutritional supplementation with Ensure shakes. Zofran as needed for nausea. Continued on PPI here with Protonix IV, Maalox. Antihypertensives changed, HCTZ discontinued, continue as needed carvedilol, amlodipine with good blood pressure control. While she is on full dose aspirin, Plavix for now is discontinued. Please revisit with her at follow-up. Studies were checked as well, he is not found to be iron deficient. A1c was checked and is 4.5. TSH normal. Vitamin B12 not low. Folate not low. Sodium has gradually come up, today improved to 132. HCTZ is discontinued. Please recheck sodium at next visit. No further vomiting, appetite not good. PPI dose is increased to omeprazole 20 mg twice daily. Discussing additional work-up together with her and her sister, she states that she is nearly 79 years old, and that she would not want him to work on my stomach . She is willing to follow-up at least with gastric emptying study. Please revisit with her additionally in case she would consider a little bit more aggressive intervention she would benefit from assessment by endoscopy due to early satiety, recurrent nausea vomiting, poor appetite. Other considerations may be contributory from recurrent constipation, currently has not had a bowel movement in 6 days, in the setting of opioid as well, possibly slowed transit with chronic adhesions following the old open cholecystectomy, other considerations may include intestinal angina, further assessment may be pursued depending on what she may allow and further goals of care. Consideration may be given to referral for gastroenterology, although she currently does not want to pursue this at the moment. Please revisit with her and refer including for endoscopy if she will allow. Additionally she does admit to history of depression, although at the moment does not want further adjustment of her antidepressant medication, does not at the moment want to fol low-up with behavioral health care. She states she does not feel she has been more depressed, although her family are concerned about functional decline. Consideration will be given to further follow for neurocognitive testing possibly with referral for neuropsychiatric battery. If she will allow, consider referral to behavioral health care. Otherwise in case of persistent symptoms, if otherwise still unexplained, consider adjustment or change of fluoxetine to a different medication in case contributing to symptoms. Physical Exam Narrative: Sister at bedside Const: COMMON NORMALS: alert GENERAL APPEARANCE: cooperative ORIENTATION/CONSCIOUSNESS: Yes awake OTHER: Pleasant, responsive. HENMT: COMMON NORMALS: oropharynx normal Neck/C-Spine: COMMON NORMALS: no JVD Resp: COMMON NORMALS: normal respiratory effort and clear to auscultation bilaterally AUSCULTATION: clear to auscultation bilaterally Cardio: COMMON NORMALS: no JVD, regular rhythm, S1 normal heart sound present, S2 normal heart sound present and No murmurs present (Cardio) RHYTHM: regular rhythm HEART SOUNDS: S1 normal heart sound present and S2 normal heart sound present GI: COMMON NORMALS: Normal to inspection, nondistended, normoactive bowel sounds present, Soft to palpation and non-tender PALPATION: Yes Soft to palpation Extremity: COMMON NORMALS: no joint enlargement and no pedal edema Neuro: COMMON NORMALS: moves all extremities SENSORIUM/ORIENTATION: Yes alert Skin: COMMON NORMALS: no rashes or lesions noted GENERAL SKIN EXAM: no rashes or lesions noted Discharge Data Studies Completed and Pending Completed Studies During Hospitalization Category Date Time Status XR chest 1V portable [id number] Stat Exams 05/29/22 13:10 Completed US venous duplex lower extremity LT [CV venous duplex Ultrasound 05/29/22 13:40 [place] [id number]] Stat Radiology Impressions Chest X-Ray 05/29/22 13:10 IMPRESSION: 1. No acute cardiopulmonary finding. No change. Laboratory Results WBC 6.3 10^3/uL (4.0-10.0) 06/02/22 04:15 RBC 3.44 10^6/uL (4.1-5.3) L 06/02/22 04:15 Hgb 10.0 g/dL (11.5-15.3) L 06/02/22 04:15 Hct 30.2 % (37.0-47.0) L 06/02/22 04:15 MCV 87.8 fl (81-99) 06/02/22 04:15 MCH 29.1 pg (28.0-34.0) 06/02/22 04:15 MCHC 33.1 g/dL (30.0-36.0) 06/02/22 04:15 RDW 13.4 % (12.1-15.1) 06/02/22 04:15 Plt Count 337 10^3/cmm (130-400) 06/02/22 04:15 MPV 8.6 fL (7.4-10.4) 06/02/22 04:15 Neut % (Auto) 64.1 % 06/02/22 04:15 Lymph % (Auto) 24.3 % 06/02/22 04:15 [place] % (Auto) 7.7 % 06/02/22 04:15 Eos % (Auto) 1.8 % 06/02/22 04:15 Baso % (Auto) 0.8 % 06/02/22 04:15 Neut # (Auto) 4.02 10^3/uL (1.8-7.7) 06/02/22 04:15 Lymph # (Auto) 1.5 10^3/uL (0.8-4.8) 06/02/22 04:15 [place]ascade # (Auto) 0.5 10^3/uL (0.2-0.9) 06/02/22 04:15 Eos # (Auto) 0.1 10^3/uL (0.0-0.8) 06/02/22 04:15 Baso # (Auto) 0.1 10^3/uL (0.0-0.1) 06/02/22 04:15 Nucleated RBC % (auto) 0 % 06/02/22 04:15 Nucleated RBCs # 0.0 /100WBC 06/02/22 04:15 Sodium 132 mmol/L (136-145) L 06/02/22 04:15 Potassium 3.7 mmol/L (3.5-5.1) 06/02/22 04:15 Chloride 99 mmol/L (98-107) 06/02/22 04:15 Carbon Dioxide 25 mmol/L (22-29) 06/02/22 04:15 Anion Gap 11.7 (5-19) 06/02/22 04:15 BUN 8 mg/dL (8-23) 06/02/22 04:15 Creatinine 0.5 mg/dL (0.5-0.9) 06/02/22 04:15 GFR Calculation Not Reportable 06/02/22 04:15 Glucose 81 mg/dL (65-115) 06/02/22 04:15 Estimat Average Glucose 82 05/30/22 05:46 Hemoglobin A1c 4.5 % (4.0-6.0) 05/30/22 05:46 Calculated Osmolality 271 mOsm/kg (285-295) L 06/02/22 04:15 Calcium 8.7 mg/dL (8.5-10.5) 06/02/22 04:15 Phosphorus 2.3 mg/dL (2.5-4.5) L 05/30/22 05:46 Magnesium 2.2 mg/dL (1.7-2.3) 05/30/22 05:46 Iron 78 ug/dL (37-145) 05/29/22 14:13 TIBC 333 mcg/dl 05/29/22 14:13 % Saturation 23.4 % (20-50) 05/29/22 14:13 Unsat Iron Binding 255 ug/dL (112-347) 05/29/22 14:13 Total Bilirubin 0.3 mg/dL (0.15-1.2) 06/02/22 04:15 AST 19 U/L (0-32) 06/02/22 04:15 ALT 11 U/L (0-33) 06/02/22 04:15 Alkaline Phosphatase 107 U/L (35-105) H 06/02/22 04:15 NT-Pro-B Natriuret Pep 297 pg/mL (0-450) 05/29/22 14:13 Total Protein 5.4 g/dL (6.6-8.7) L 06/02/22 04:15 Albumin 3.2 g/dL (3.5-5.2) L 06/02/22 04:15 Globulin 2.2 g/dL (1.3-4.6) 06/02/22 04:15 Triglycerides 98 mg/dL (0-150) 05/30/22 05:46 Cholesterol 184 mg/dL (0-200) 05/30/22 05:46 LDL Cholesterol, Calc 86 mg/dL (50-129) 05/30/22 05:46 Total VLDL Cholesterol 20 mg/dL (0-30) 05/30/22 05:46 HDL Cholesterol 78 mg/dL (60-100) 05/30/22 05:46 LDL/HDL Ratio 1.10 RATIO (0.00-3.22) 05/30/22 05:46 Cholesterol/HDL Ratio 2.36 mg/dL (0.0-4.40) 05/30/22 05:46 Vitamin B12 1444 pg/mL (232-1245) H 05/29/22 14:13 Folate > 20.0 ng/mL (4.8-37.3) 05/29/22 14:13 Procalcitonin 0.05 ng/mL (0-0.5) 05/29/22 14:13 TSH 3.74 uIU/mL (0.27-4.20) 05/29/22 14:13 Urine Color Yellow (Yellow) 05/29/22 16:13 Urine Appearance Clear (CLEAR) 05/29/22 16:13 Urine pH 7 (5-7) 05/29/22 16:13 Ur Specific [place] 1.010 (1.005-1.030) 05/29/22 16:13 Urine Protein Neg (Negative) 05/29/22 16:13 Urine Glucose (UA) Norm (Normal) 05/29/22 16:13 Urine Ketones Negative (Negative) 05/29/22 16:13 Urine Blood Trace (Negative) H 05/29/22 16:13 Urine Nitrate Negative (Negative) 05/29/22 16:13 Urine Bilirubin Neg (Negative) 05/29/22 16:13 Urine Urobilinogen Norm mg/dL (Negative) 05/29/22 16:13 Ur Leukocyte Esterase Negative (Negative) 05/29/22 16:13 Urine RBC None /hpf (0-2) 05/29/22 16:13 Urine WBC 0-4 /hpf (0-5) H 05/29/22 16:13 Ur Squamous Epith Cells 0-4 /hpf (0-5) H 05/29/22 16:13 Amorphous Sediment Not Reportable 05/29/22 16:13 Urine Bacteria Trace /hpf (NONE) 05/29/22 16:13 Ur Random Sodium 10 mmol/L 05/29/22 16:13 Ur Random Potassium 28 mmol/L 05/29/22 16:13 Ur Random Chloride 15 mmol/L 05/29/22 16:13 Urine Creatinine 59 mg/dL (28-217) 05/29/22 16:13 Urine Opiates Screen Negative ng/mL (Negative) 05/29/22 16:13 Ur Barbiturates Screen Negative ng/mL (Negative) 05/29/22 16:13 Ur Phencyclidine Scrn Negative ng/mL (Negative) 05/29/22 16:13 Ur Amphetamines Screen Negative ng/mL (Negative) 05/29/22 16:13 U Benzodiazepines Scrn Positive ng/mL (Negative) H 05/29/22 16:13 Urine Cocaine Screen Negative ng/mL (Negative) 05/29/22 16:13 U Marijuana (THC) Screen Negative ng/mL (Negative) 05/29/22 16:13 Serum Ketones Negative (Negative) 05/29/22 14:13 Vitals Last Vital Signs Temp 98.1 F 06/02/22 07:27 Pulse 70 06/02/22 12:00 Resp 17 06/02/22 12:00 BP 121/61 06/02/22 12:00 Pulse Ox 98 06/02/22 12:00 O2 Del Method 06/02/22 04:00 Discharge Plan Discharge Patient Disposition: Home Health Service Condition: Stable Prescriptions: New amlodipine 10 mg Tablet 10 mg PO DAILY Qty: 90 0RF carvedilol 6.25 mg Tablet 6.25 mg PO BID Qty: 180 0RF sodium chloride 1 gram Tablet 1 g PO BID Qty: 60 0RF Continued fluoxetine 20 mg capsule 60 mg PO DAILY Centrum Silver Women 8 mg iron-400 mcg-300 mcg tablet 1 tab PO DAILY aspirin 325 mg capsule 325 mg PO DAILY (DME) Francisco J knee brace See Rx Instructions .Route .MEDSUPPLY Qty: 1 0RF Rx Instructions: Left knee locked at full extension No motion oxycodone 5 mg tablet 5 mg PO Q6H PRN (Reason: pain) 7 Days Qty: 28 0RF docusate sodium [Colace] 100 mg capsule 100 mg PO BID 14 Days Qty: 28 0RF simvastatin 10 mg tablet 10 mg PO BEDTIME tizanidine 4 mg Tablet 4 mg PO Q8H PRN (Reason: Muscle Spasm) calcium carbonate-vitamin D3 600 mg-10 mcg (400 unit) Tablet 1 ea PO BID 30 Days Qty: 60 0RF ondansetron 4 mg tablet,disintegrating 4 mg PO Q8H PRN (Reason: nausea and vomiting) Qty: 30 0RF Changed omeprazole 20 mg capsule,delayed release(DR/EC) 20 mg PO BID Qty: 90 0RF Discontinued bisoprolol-hydrochlorothiazide 10-6.25 mg tablet 1 tab PO QAM clopidogrel 75 mg tablet 75 mg PO QAM Discharge Orders: Discharge Order (Routine); Ordered 06/02/22 Ordered By: Joel Lin Other Ambulatory Orders: [place] [address] (Routine) Timeframe: 3 Days Facility: [facility] - Location: Radiology Ordered By: Joel Lin Referrals: [facility] ([facility]) [Outside] Migel Flores MD [Primary Care Provider] - 4-7 days Discharge Diet: Advance as tolerated and GI Soft Discharge Activity: Increase activity as tolerated Patient Instructions: Amlodipine (By mouth), Carvedilol (By mouth), Hyponatremia (GEN), Depression (GEN), Anorexia in Older Adults (GEN), Opioid Safety Activity Restrictions/Additional Instructions: Please follow-up with gastric emptying study, however, you will also benefit from endoscopic evaluation to further assess for early satiety and recurrent nausea, poor appetite. Please discuss with your primary doctor or call us back for additional referral for endoscopic evaluation in case you decide that you are okay with pursuing a bit more aggressive evaluation to exclude any more dangerous causes of early satiety, recurrent nausea vomiting, exclude things like malignancy or other concerning conditions. Please discuss with your primary doctor or call us back in case you decide also that you would be agreeable to pursue follow-up with behavioral health care with regards to depression. Continue your antidepressant medication. In case of any thoughts of self-harm or ending your life, seek medical attention immediately. Additionally if still no answers are found with regards to poor appetite, current nausea, please discuss with your primary doctor also referral for assessment by gastroenterology. Continue oral intake as tolerating, small amounts throughout the day. Continue protein shakes through the day to nutrition. Avoid dehydration. Bisoprolol-HCTZ is discontinued to help avoid dehydration and HCTZ may decrease your sodium level further. Continue carvedilol, morphine for blood pressure control. Please have your primary doctor reassess your sodium level in office at next visit due to low sodium in the hospital which has been improving, corrected 132. As well as reassess GI symptoms and blood pressure. Do not limit salt intake. Revisit also with your primary doctor additional consideration of neurocognitive evaluation, consideration of further neuropsychiatric work-up. Plavix for now held as per prior discussion while on full dose aspirin. Please revisit with your primary doctor. Discharge Attestations Time Spent in Discharge Care*: greater than 30 min Quality Metrics Clinical Quality Measures [ No reported AMI, CVA or VTE this stay] Coding Level of Care Code Acute Chg FW DC note Diagnoses Acute hyponatremia E87.1 Increased nausea and vomiting R11.2 Benign essential hypertension I10 CVA (cerebral vascular accident) I63.9
== END 2022-06-02 14:34 | disposition home health service (06) | DRG 641 ==
LOC: ER 15:14 → MEDSURG 16:23
PROVIDERS: Student in an Organized Health Care Education/Training Program; Admitting Provider Internal Medicine; Emergency Provider Family Medicine; PCP Family Medicine; Visit Provider Internal Medicine
DX: E87.1 Hypo-osmolality and hyponatremia (principal); E78.5 Hyperlipidemia, unspecified; Z95.0 Presence of cardiac pacemaker; I69.319 Unspecified symptoms and signs involving cognitive functions following cerebral infarction; I10 Essential (primary) hypertension; F32.A Depression, unspecified; Z87.891 Personal history of nicotine dependence; E86.0 Dehydration; T50.2X5A Adverse effect of carbonic-anhydrase inhibitors, benzothiadiazides and other diuretics, initial encounter; K59.00 Constipation, unspecified; R68.81 Early satiety; Z79.891 Long term (current) use of opiate analgesic
CPT/HCPCS: 36415; 71045; 73560; 80048; 80053; 80061; 80306; 81001; 82009; 82436; 82570; 82607; 82746; 83036; 83540; 83550; 83735; 83880; 84100; 84133; 84145; 84295; 84300; 84443; 85025; 86403; 87449; 87641; 93971; 94664; 96372; 97110; 97116; 97161; 97166; 97530; 99214; C9113; J1644; J2270; J2405; J7030

== ENCOUNTER → 2022-06-12 08:25 | Outpatient (BNVA) | payer MEDICARE, SELFPAY | PROVIDERS: PCP Family Medicine; Visit Provider Student in an Organized Health Care Education/Training Program | DX: S82.002A Unspecified fracture of left patella, initial encounter for closed fracture (principal) | CPT/HCPCS: 73560; 99024 ==

== ENCOUNTER 2022-06-16 06:00 | Outpatient (RCR) | payer MEDICARE, SELFPAY | END 2022-07-12 23:59 | disposition home or self-care (01) | LOC: SPT 06:00 | PROVIDERS: PCP Family Medicine; Visit Provider Student in an Organized Health Care Education/Training Program | DX: Z47.89 Encounter for other orthopedic aftercare (principal) | CPT/HCPCS: 97110; 97162; 97530 ==

== ENCOUNTER → 2022-06-26 10:53 | Outpatient (BNVA) | payer MEDICARE, SELFPAY | PROVIDERS: PCP Family Medicine; Visit Provider Student in an Organized Health Care Education/Training Program | DX: S82.002A Unspecified fracture of left patella, initial encounter for closed fracture (principal); X58.XXXA Exposure to other specified factors, initial encounter; R29.6 Repeated falls | CPT/HCPCS: 73560; 99024 ==

== ENCOUNTER → 2022-07-11 09:18 | Outpatient (BNVA) | payer MEDICARE, SELFPAY | PROVIDERS: PCP Family Medicine; Visit Provider Student in an Organized Health Care Education/Training Program | DX: S82.002A Unspecified fracture of left patella, initial encounter for closed fracture (principal); X58.XXXA Exposure to other specified factors, initial encounter | CPT/HCPCS: 73560; 73565; 99024 ==

== ENCOUNTER 2022-07-13 06:00 | Outpatient (RCR) | payer MEDICARE, SELFPAY | END 2022-07-28 23:59 | disposition home or self-care (01) | LOC: SPT 06:00 | PROVIDERS: PCP Family Medicine; Visit Provider Student in an Organized Health Care Education/Training Program | DX: S82.002D Unspecified fracture of left patella, subsequent encounter for closed fracture with routine healing (principal); Z47.89 Encounter for other orthopedic aftercare; X58.XXXD Exposure to other specified factors, subsequent encounter | CPT/HCPCS: 97110 ==

== ENCOUNTER 2022-08-04 07:37 | Outpatient (CLI) | payer MEDICARE, SELFPAY ==
--- NOTE | 2022-08-04 07:47 | CT_ITS ---
WS: [id number] CT HEAD WITH AND WITHOUT CONTRAST HISTORY: CEREBROVASCULAR DZ TECHNIQUE: Noncontrast 2.5 mm axial images obtained from the vertex to the skull base. Additional ricarda ging performed at 2.5 mm axial images status post IV contrast. Bone and soft tissue windows are revie wed. All CT scans at [facility] use at least one of these dose optimization techniques: autom ated exposure control; mA and/or kV adjustment per patient size (includes targeted exams where dose i s matched to clinical indication); or iterative reconstruction. CONTRAST: Omnipaque 350; 95 mL IV. DLP: 1996.58 mGy.cm COMPARISON: Noncontrast CT head 11/03/2013 No acute intracranial hemorrhage, edema or midline shift. Mild atrophy is developed since the prior s tudy. Additional lacunar infarct in the RIGHT basal ganglia and RIGHT liz radiata. These infarcts are not acute but new since 2013. Mild small vessel ischemic disease. Ventricles are mildly prominent on the basis of atrophy. No enhancing mass or vascular malformations identified. Dural venous sinuses are normally enhancing. Mild atherosclerotic disease but no occlusions. Paranasal sinuses as visualized: Clear. Mastoid air cells: Clear. Calvarium and scalp: Intact. CT/CT head w con [id number] IMPRESSION: 1. No enhancing masses or vascular malformations. 2. Remote lacunar infarcts in the RIGHT liz radiata and basal ganglia. Armando te but new since 2013. 3. Atrophy and small vessel ischemic disease is also new since 2013.
[2022-08-04] MEDS: iohexol 350 mg/mL 500 mL Btl (per mL) IV (09:48)
== END 2022-08-04 07:38 | disposition home or self-care (01) ==
PROVIDERS: PCP Family Medicine; Visit Provider Family Medicine
DX: I67.9 Cerebrovascular disease, unspecified (principal)
CPT/HCPCS: 70460; Q9967

== ENCOUNTER → 2022-08-15 13:18 | Outpatient (BNVA) | payer MEDICARE, SELFPAY | PROVIDERS: PCP Family Medicine; Visit Provider Student in an Organized Health Care Education/Training Program | DX: S82.002A Unspecified fracture of left patella, initial encounter for closed fracture (principal); X58.XXXA Exposure to other specified factors, initial encounter | CPT/HCPCS: 73560; 73565; 99213 ==

== ENCOUNTER 2022-10-22 09:37 | Emergency (ER) | payer MEDICARE, SELFPAY ==
[2022-10-22 09:43] VITALS: BP 137/70; PULSE 70; RESP 16; TEMP 36.3; O2SAT 99; BMI 26.9
--- NOTE | 2022-10-22 10:06 | XR_ITS ---
WS: [id number] EXAMINATION: XR knee LT 3V* [id number] REASON FOR EXAM: patellar pain/drainage COMPARISON: 08/15/2022 ORDER DATE: 10/22/2022 10:08 AM FINDINGS: The AP view the left knee shows irregularity of the articular surface of the lateral tibial plateau unchanged. The lateral view suggests the possibility of a round density superimposing the ciaran nt which is not seen on the additional views and could represent a small loose body. The left knee shows medial joint compartment narrowing. There are 3 orthopedic screws reducing a transverse fracture of the mid left patella with dorsal diastases at most about 1.7 mm. Also, in the anterior projection this degree of diastases is apparent medial to the most medial screw with minimal diastases of the remaining fracture Osseous bridging of the volar surface of the fracture has occurr ed since the previous study No new fractures or dislocations are seen. There is prepatellar and supra patellar soft tissue thickening and/or mild edema unchanged from the previous study.. Vascular calcifications are present. XR/XR knee LT 3V* [id number] Impression: 1. Minimal irregularity of the articular surface of the lateral tibial plateau of the right knee. 2. Internal fixation of left patellar fracture showing progressive callus forma tion along the volar fracture but no change in the dorsal fracture component..
--- NOTE | 2022-10-22 10:06 | W.ED.EXTPRO ---
HPI - Extremity Problem General: Chief complaint: Extremity Injury, Lower Stated complaint: left knee pain/infection Time Seen by Provider: 10/22/22 09:40 Source: patient Mode of arrival: wheelchair Limitations: no limitations History of Present Illness: Patient is a 77-year-old female here for evaluation of her left knee pain and drainage from a surgical incision. Patient is status post left patellar fracture repair by Dr. Krishna that was completed 05/2022. She has had appropriate postop follow-up with him. Last appointment with him was back in August. Patient states some days she will have zero discomfort in the joint but other days it seems to ache all day long . She states she is weight bearing without assistance or difficulty. She states over the past few days she has noticed a very small area to her incision that seems to be draining pus . He has not noticed any redness or swelling to the joint. She does not state the joint is any more painful than it has been since surgery. MD Complaint: joint pain and other (surgical incision draining) Onset (ago): day(s) Pain Consistency: intermittent Location: left and lower extremity (knee) Radiation: none Relieving factors: nothing Exacerbating factors: nothing Associated symptoms: Reports no associated symptoms; Deny chest pain or fever(s) Context: recent surgery/procedure (4.5 mo ago) Review of Systems Const: Denies: fever(s), chills, body aches, fatigue or malaise Card: Denies: chest pain Resp: Denies: dyspnea Musc: Reports: joint pain (L knee); Denies: neck pain, back pain, extremity pain, extremity swelling, joint swelling, joint redness, joint warmth or limited range of motion Skin/Breast: Reports: other (drainage from surgical incision) Neuro: Denies: headache(s), numbness in extremities, weakness in extremities, sensory changes or difficulty walking PFS ED PFSH: Medical History Benign essential hypertension Cerebrovascular disease CVA (cerebral vascular accident) Frequent falls Pacemaker Presence of permanent cardiac pacemaker SSS (sick sinus syndrome) Syncope and collapse Thrombotic stroke Surgical History Hx of cholecystectomy Hx of knee surgery Family History Mother Diabetes CAD (coronary artery disease) Father Diabetes CAD (coronary artery disease) Brother Diabetes x 10 brothers Hypertension x 10 brothers Lung disease Cancer CAD (coronary artery disease) x 4 brothers Stroke Sister Diabetes x 4 sisters Hypertension x 7 sisters CAD (coronary artery disease) Brother Stroke CAD (coronary artery disease) Cancer Diabetes Brother CAD (coronary artery disease) Diabetes Brother CAD (coronary artery disease) Brother CAD (coronary artery disease) Brother CAD (coronary artery disease) Brother CAD (coronary artery disease) Brother CAD (coronary artery disease) Sister Diabetes Lung disease Denies family history of Clotting disorder Dementia Chronic kidney disease (CKD) Suicide Anesthesia complication Bleeding disorder Social History Smoking and tobacco status: former smoker Alcohol intake: never Physical Exam Const: COMMON NORMALS: no acute distress, average body habitus, patient oriented x3, no limitations, healthy appearing and alert Resp: COMMON NORMALS: normal respiratory effort and clear to auscultation bilaterally AUSCULTATION: clear to auscultation bilaterally Cardio: COMMON NORMALS: regular rate and regular rhythm RATE: regular rate RHYTHM: regular rhythm Extremity: COMMON NORMALS: full ROM, capillary refill normal, no joint enlargement, no clubbing, cyanosis or edema, no calf tenderness and no pedal edema GENERAL: Yes normal exam except as noted LEFT LOWER EXTREMITY: Yes knee joint OTHER: pts knee joint with healed vertical incision except for one small area (about 2-3mm) of superficial dehiscence; she has a very scant amount of clear/yellow drainage on the bandage covering the wound; knee joint is not swollen, erythematous, or warm to the touch; ROM is fairly normal and not out of proportion to exam Neuro: COMMON NORMALS: patient oriented x3, moves all extremities, no focal motor deficits and no sensory deficits noted SENSORIUM/ORIENTATION: Yes alert Skin: NARRATIVE SKIN EXAM: see above for pertinent skin findings Course Vital Signs: Vital signs: Vital Signs Temperature 97.3 F L 10/22/22 09:43 Pulse Rate 70 10/22/22 09:43 Respiratory Rate 16 10/22/22 09:43 Blood Pressure 137/70 10/22/22 09:43 Pulse Oximetry 99 10/22/22 09:43 Oxygen Delivery Me thod Room Air 10/22/22 09:43 MDM - Extremity (Nontraumatic) Medical Decision Making XR comments on irregularity of the articular surface of the lateral tibial plateau however this was present on XR back in August. We will have patient follow-up with Dr. Krishna/case management referral was placed for this to assess patient's pain and hardware status. Recommend she keep the very small wound clean with warm soap and water and she can apply triple antibiotic ointment. I have zero concern for septic joint and there is not anything to suggest superficial cellulitis either at this time. Return to ED precautions were discussed. Lab Data Radiology Impressions Knee X-Ray 10/22/22 10:06 Impression: 1. Minimal irregularity of the articular surface of the lateral tibial plateau of the right knee. 2. Internal fixation of left patellar fracture showing progressive callus formation along the volar fracture but no change in the dorsal fracture component.. Discharge Plan Discharge Patient Disposition: Home Clinical Impression: Left knee pain Condition: Stable Prescriptions: No Action fluoxetine 20 mg capsule 60 mg PO DAILY Centrum Silver Women 8 mg iron-400 mcg-300 mcg tablet 1 tab PO DAILY aspirin 325 mg capsule 325 mg PO DAILY oxycodone 5 mg tablet 5 mg PO Q6H PRN (Reason: pain) 7 Days Qty: 28 0RF (DME) Leslie knee brace See Rx Instructions .Route .MEDSUPPLY Qty: 1 0RF Rx Instructions: Left knee locked at full extension No motion docusate sodium 100 mg capsule See Rx Instructions .ROUTE .COMPLEX Qty: 28 0RF Dose Instruction: TAKE 1 CAPSULE BY MOUTH TWICE DAILY FOR CONSTIPATION FOR 14 DAYS Rx Instructions: TAKE 1 CAPSULE BY MOUTH TWICE DAILY FOR CONSTIPATION FOR 14 DAYS simvastatin 10 mg tablet 10 mg PO BEDTIME tizanidine 4 mg Tablet 4 mg PO Q8H PRN (Reason: Muscle Spasm) carvedilol 6.25 mg Tablet 6.25 mg PO BID Qty: 180 0RF amlodipine 10 mg Tablet 10 mg PO DAILY Qty: 90 0RF omeprazole 20 mg capsule,delayed release(DR/EC) 20 mg PO BID Qty: 90 0RF ondansetron 4 mg tablet,disintegrating 4 mg PO Q8H PRN (Reason: nausea and vomiting) Qty: 30 0RF sodium chloride 1 gram Tablet 1 g PO BID Qty: 60 0RF Discharge Orders: Discharge ED (Routine); Ordered 10/22/22 Ordered By: Salena Villagomez Referrals: Migel Flores MD [Primary Care Provider] - Activity Restrictions/Additional Instructions: As we discussed I will place a referral with case management to get you set up to see Dr. Krishna for further evaluation of your knee pain and knee hardware status. As we discussed keep the small wound on your knee clean with warm soap and water and you may apply a small amount of triple antibiotic ointment. Monitor for signs of infection such as redness, warmth, swelling, purulent or odorous drainage. Please seek medical re-evaluation immediately if these occur. Coding Level of Care Code ED Quality Assurance Supervisor for Shruthi Hatfield
--- NOTE | 2022-10-22 11:18 | DCPLANNER ---
Addendum entered by Patricia Mari 10/24/22 10:46: Patient had a follow up appointment scheduled for 10.24.22 at ortho - patient did attend appointment. Original Note: mission manager had message to schedule a follow up appointment for patient with ortho. mission manager sent patients information to the front office staff at ortho. Patients information will be printed and reviewed. Clinic will call patient with appointment information.
== END 2022-10-22 10:50 | disposition home or self-care (01) ==
PROVIDERS: Emergency Provider Physician Assistant; PCP Family Medicine
DX: M25.562 Pain in left knee (principal); Z79.82 Long term (current) use of aspirin; Z87.891 Personal history of nicotine dependence; I10 Essential (primary) hypertension; Z86.73 Personal history of transient ischemic attack (TIA), and cerebral infarction without residual deficits; Z95.0 Presence of cardiac pacemaker
CPT/HCPCS: 73562; 99283

== ENCOUNTER → 2022-10-24 10:01 | Outpatient (BNVA) | payer MEDICARE, SELFPAY | PROVIDERS: PCP Family Medicine; Referring Provider Physician Assistant; Visit Provider Student in an Organized Health Care Education/Training Program | DX: L76.82 Other postprocedural complications of skin and subcutaneous tissue (principal); S82.002S Unspecified fracture of left patella, sequela; X58.XXXS Exposure to other specified factors, sequela | CPT/HCPCS: 73560; 73565; 99213 ==

== ENCOUNTER 2022-11-03 14:11 | Outpatient (CLI) | payer MEDICARE, SELFPAY ==
--- NOTE | 2022-11-03 14:30 | CT_ITS ---
WS: [id number] NONCONTRAST CT LEFT KNEE TECHNIQUE: Noncontrast CT LEFT knee with coronal and sagittal reformatted images. CLINICAL INFORMATION: access bone healing COMPARISON: None. DLP: 323.[address] scans at [facility] use at least one of these dose optimization techniques: automated e xposure control; mA and/or kV adjustment per patient size (includes targeted exams where dose is matc hed to clinical indication); or iterative reconstruction. FINDINGS: 3 fixation screws across the patellar fracture. Lucency about the distal lateral fixation screw suspi cious for loosening or osteomyelitis. This extends to involve the cortex. Partial bony fusion across the transverse patellar fracture site. Incomplete appearing bony fusion laterally. Moderate diffuse s oft tissue edema. Small suprapatellar effusion. Suprapatellar prepatellar and infrapatellar soft tiss ue edema.Induration with diffuse soft tissue thickening involving the suprapatellar bursa suspicious for infection. Vascular calcification. Distal femoral condyles are normal. Normal tibial plateau. Small popliteal cy st. CT/CT knee LT wo con* [id number] IMPRESSION: 1. Lucency involving the distal lateral patella fixation screw suspicious for loosening versus osteomyelitis. This extends to the adjacent cortex. 2. Partial bony fusion across the patellar fracture. Residual incomplete bony bridging across the lateral fracture site. 3. Diffuse induration with soft tissue edema about the patella extending into the suprapatellar bursa and adjacent soft tissues suspicious for infection. Sof t tissue thickening involving the suprapatellar bursa and adjacent soft tissues . Small suprapatellar effusion.
== END 2022-11-03 14:12 | disposition home or self-care (01) ==
LOC: RAD 14:16
PROVIDERS: PCP Family Medicine; Visit Provider Student in an Organized Health Care Education/Training Program
DX: L76.82 Other postprocedural complications of skin and subcutaneous tissue (principal); S82.002A Unspecified fracture of left patella, initial encounter for closed fracture; X58.XXXA Exposure to other specified factors, initial encounter
CPT/HCPCS: 73700; 99214

== ENCOUNTER 2022-11-11 20:43 | Observation (INO) | payer MEDICARE, SELFPAY ==
[2022-11-10 15:32] VITALS: BMI 26.9
[2022-11-11] VITALS (18 sets, daily range): BP systolic 124–146; BP diastolic 56–99; PULSE 70–78; RESP 14–19; TEMP 22.2–36.8; O2SAT 94–100
--- NOTE | 2022-11-11 | XR_ITS ---
WS: [id number] XR knee LT 3V* [id number] REASON FOR EXAM: SURGICAL PROCEDURE FINDINGS: Removal of 3 screws from fixation of transverse left patellar fracture. No residual surgical appliances identified.. Healed patellar fracture. XR/XR knee LT 3V* [id number] IMPRESSION: Hardware removal as above.
--- NOTE | 2022-11-11 12:46 | ANES.PREANE2 ---
Pre-Anesthetic Assessment Height/Weight: Height 1.65 m Weight 73.482 kg O2 Del Method Room Air 11/11/22 12:34 Operation Date: 11/11/22 13:50 Proposed Procedures p irrigation and debridement with possible removal of hardware left knee:53053,L76.82(Left) - Giancarlo Krishna, DO s Hardware Removal Knee(Left) - Giancarlo Krishna, Familial anesthetic complications: None Was Beta Mikel taken within 24 hours: N/A Was Clonidine taken within 24 hours: N/A Last intake: Intake Last Liquid Date 11/10/22 Last Liquid Time 22:00 Last Solid Date 11/10/22 Last Solid Time 21:30 Social No alcohol and No tobacco Exam alert, oriented x 3, clear to auscultation bilaterally and regular rate & rhythm Airway Mallampati: Class II Dentition: false CV/HEM Hypertension pacemaker for SSS GI Gastroesophageal Reflux Disease Metabolic Hyperlipidemia Neuropsych Cerebrovascular Accident Anesthetic Plan ASA status: 3 Anesthesia: General Risk of > 500 ml blood loss (7ml/kg in children): No Medications/Allergies Home Medications Medication Instructions Recorded Confirmed Last Taken Type simvastatin 10 mg tablet 10 mg PO BEDTIME 12/03/20 11/11/22 11/10/22 History Francisco J knee brace #1 ea 05/13/22 10/24/22 Unknown Rx tizanidine 4 mg tablet 4 mg PO Q8H PRN Muscle Spasm 05/29/22 11/11/22 11/10/22 History amlodipine 10 mg tablet 10 mg PO DAILY #90 tabs 06/02/22 11/11/22 11/11/22 Rx carvedilol 6.25 mg tablet 6.25 mg PO BID #180 tabs 06/02/22 11/11/22 11/11/22 Rx omeprazole 20 mg capsule,delayed 20 mg PO BID #90 caps 06/02/22 11/11/22 11/10/22 Rx release docusate sodium 100 mg capsule 100 mg PO BID 11/10/22 11/11/22 11/10/22 History mirtazapine 15 mg tablet 15 mg PO DAILY 11/11/22 11/11/22 11/10/22 History Allergies Allergy/AdvReac Type Severity Reaction Status Date / Time Sulfa (Sulfonamide Allergy Unknown rash Verified 11/11/22 12:30 Antibiotics) codeine Allergy nausea Verified 11/11/22 12:30 PFSH Anesthesia Medical History Benign essential hypertension Cerebrovascular disease CVA (cerebral vascular accident) Frequent falls Pacemaker Presence of permanent cardiac pacemaker SSS (sick sinus syndrome) Syncope and collapse Thrombotic stroke Surgical History Hx of cholecystectomy Hx of knee surgery Family History Mother Diabetes CAD (coronary artery disease) Father Diabetes CAD (coronary artery disease) Brother Diabetes x 10 brothers Hypertension x 10 brothers Lung disease Cancer CAD (coronary artery disease) x 4 brothers Stroke Sister Diabetes x 4 sisters Hypertension x 7 sisters CAD (coronary artery disease) Brother Stroke CAD (coronary artery disease) Cancer Diabetes Brother CAD (coronary artery disease) Diabetes Brother CAD (coronary artery disease) Brother CAD (coronary artery disease) Brother CAD (coronary artery disease) Brother CAD (coronary artery disease) Brother CAD (coronary artery disease) Sister Diabetes Lung disease Denies family history of Clotting disorder Dementia Chronic kidney disease (CKD) Suicide Anesthesia complication Bleeding disorder Social History Smoking and tobacco status: former smoker Alcohol intake: never Substance/Drug Use: never Data Anesthesia Cardiac Studies: No Data to Display
[2022-11-11] MEDS: acetaminophen 1,000 MG/100 ML PIGGYBACK 400 MG IV (12:50)
[2022-11-11] MEDS: scopolamine 1.5 Patch 1 PATCH TRANSDERMA (12:51)
[2022-11-11] MEDS: ketorolac 30 mg/mL INJ IVP (12:52)
[2022-11-11 13:08] LABS: Blood Urea Nitrogen 14 mg/dL (8-23); Calcium 9.6 mg/dL (8.5-10.5); Carbon Dioxide 25 mmol/L (22-29); Chloride 105 mmol/L (98-107); Glucose 84 mg/dL (65-115); Osmolality Calculated 294 mOsm/kg (285-295); Sodium 142 mmol/L (136-145)
[2022-11-11 13:17] LABS: Anion Gap 16.3 (5-19); Potassium 4.3 mmol/L (3.5-5.1)
[2022-11-11] MEDS: sodium chloride 0.9% 1,000 ML 30 ML IV (13:42)
--- NOTE | 2022-11-11 13:55 | W.PM.OPSUD ---
Surgery/Procedure H&P Update DATE OF PROCEDURE: November 11, 2022 DATE H&P PERFORMED: 11/06/22 CHANGES TO PREVIOUS DOCUMENTATION: None. Review of patient's CT scan demonstrates the lateral screw has loosened over time and there appears to be a nonunion of the small fracture fragment that was attempted to be captured with this third screw. The 2 main screws show complete bone healing. At this point in time patient's continue to have a small punctate hole and drainage. I worry of any type of infection given that this bone is healed and she is functioning very well I feel the next best step for her would be to have these screws removed as well as to remove this excess suture. While were in there we will obtain cultures intra-articularly as well as superficially to make sure and rule out any infection we will keep her on antibiotics empirically postoperatively until these cultures result. I will keep her in a knee immobilizer postoperatively and she will be allowed to weight-bear as tolerated. Had detailed discussion with the patient as well as her sister about these treatment options and my plan of approach for this procedure. They understand and agree with current plan. All questions answered. PREOP DIAGNOSIS: Left postoperative incision drainage and loose hardware, healed fracture PRIMARY INDICATION FOR PROCEDURE: Left postoperative incision and drainage and loose hardware, healed patella fracture PLANNED PROCEDURE: Operation Date: 11/11/22 13:50 Proposed Procedures p irrigation and debridement with possible removal of hardware left knee:23764,L76.82(Left) - Giancarlo Krishna DO s Hardware Removal Knee(Left) - Giancarlo Krishna DO
[2022-11-11] MEDS: ceFAZolin 2,000 MG in sodium chloride 0.9% (plus) 50 ML 100 MG IV (13:58)
[2022-11-11] MEDS: fentaNYL 50 mcg/mL INJ 2mL IVP (16:20)
--- NOTE | 2022-11-11 16:30 | PM.OP2 ---
Brief Operative Note Date of procedure: 11/11/22 Pre-op diagnosis: Left knee postoperative incision drainage and painful hardware Post-op diagnosis: same (Healed patella fracture) Procedure Done: Left knee irrigation and debridement (12 cm x 4 cm x 2 cm) debridement of skin, subcutaneous tissue fascia tendon and bone Left knee removal of deep orthopedic hardware Surgeon: Giancarlo Krishna Estimated blood loss (mL): 5 Complications: None Post-op Plan: Patient was taken to PACU in stable condition recovering well. Patient will receive appropriate discharge instruction as well as pain medication postoperatively. We will place patient on empiric antibiotics while we await cultures. Patient prescribed on aspirin 325 daily for blood clot prevention. She is placed in a knee immobilizer and will be allow for weightbearing as tolerated in knee immobilizer. Plan for patient to follow-up with me in the office in 2 weeks. We will continue to monitor cultures. Patient and family understand agree with current plan. Questions answered. Condition: stable Disposition: same day Coding Level of Care Code Acute Code for Shruthi Hatfield
--- NOTE | 2022-11-11 16:30 | PM.PACU ---
PACU note Narrative: Patient taken to PACU in stable condition recovering well. Patient has some slight confusion secondary to age postanesthetic. She is able to follow commands endorses sensation intact to light touch distally. Distal pulses are palpable toes warm well-perfused brisk capillary refill less than 2 seconds. Patient is able to wiggle toes plantarflex and dorsiflex ankle. Exam: awake Disposition: discharged
--- NOTE | 2022-11-11 16:31 | P.OP_ITS ---
Operative Report Date of procedure: November 11, 2022 Pre-op diagnosis: Preop Diagnosis Left postoperative incision drainage and loose hardware, healed fracture Post-op diagnosis: Left knee postoperative incision drainage(no tien signs of infection?fluid collection around fiber tape suture) Left patella ORIF healed Left patella painful orthopedic hardware Procedure done: Left knee irrigation and debridement (12 cm x 4 cm x 2 cm) debridement of skin, subcutaneous tissue fascia tendon and bone Left knee removal of deep orthopedic hardware Specimens removed/disposition: Aspiration of the knee joint?sent for aerobic and anaerobic cultures Culturing of fluid around sutures superficially?sent for aerobic and anaerobic cultures Bone cultures of patella?sent for aerobic and anaerobic cultures Surgeon: Giancarlo Krishna DO Estimated blood loss: 5 mL 73 minutes IV fluids: 800 mL Complications: None Findings: See operative report narrative Condition: stable Disposition: same day Brief History: Kristina is a 77-year-old female who sustained a patella fracture and underwent ORIF on 05/16/2022 with 3 cannulated screws with a standard tension band const ruct utilizing Arthrex suture tape. Patient overall had went on to do well postoperatively good knee range of motion and has been weightbearing as tolerated. Just a couple weeks ago patient had noticed a small poke hole with clear yellowish drainage. She subsequently presented to my office. She states of some pain over this area no tien signs of infection was noted. We talked about treatment options she really wanted to avoid possibly another surgery given slight drainage wanted to see how this would respond to some antibiotic she was given a dose of antibiotics which showed no change at this point in time and her follow-up we talked about treatment options I feel the next best step would be to evaluate this by undergoing a left knee irrigation and debridement as well as possible removal of the hardware. I then performed and ordered a CT scan to evaluate the healing of this fracture. Her main fracture fragment had apparent healing. There was a small inferior lateral fracture fragment that I attempted to capture with the lateral screw at this point time appears to not healed completely I do not feel as though this would affect patient's overall function and ultimately this point time given her CT scan findings feel confident we can remove patient's hardware. I did talk about this in detail with the patient as well as her family and they in agreements would like to have all of his hardware removed. Through shared decision making and understanding risk benefits complication alternatives with surgical nonsurgical treatment options family patient agreed to proceed with a left knee irrigation debridement with possible orthopedic hardware removal. All questions answered. Procedure: Patient was seen evaluated in the preoperative holding area. Consent was reviewed and signed with patient. Correct extremity was then marked. Patient was then seen evaluated by anesthesia once cleared for surgery she was then taken back to the operative suite. Patient was then transported onto the OR table. All bony prominences well-padded patient was appropriately secured to the bed patient was placed in supine position. Patient then underwent anesthesia per the anesthesia department. Once appropriately anesthetized the left lower extremity had a nonsterile tourniquet applied to the left thigh. The left lower extremity was then prepped and draped in standard orthopedic fashion. A final timeout performed and patient had received preoperative antibiotics prior to cultures being obtained. Esmarch tourniquet was used exsanguinate the left lower extremity tourniquet was insufflated to 250 mmHg. I then took an 18-gauge spinal needle and aspirated the knee joint to send for cultures prior to surgical dissection this was done through the superior medial aspiration site. Roughly 1 cc of clear yellow synovial fluid was aspirated and sent for aerobic and anaerobic cultures. Next I then made sharp scalpel excision through skin and subcutaneous tissue the small poke hole draining wound site was ellipsed to size. This had no tien erythema or purulence was noted. I utilized the incision all the way from the inferior pole patella superior pole patella with plan for possible removal of orthopedic hardware. At this point in time I noted small clear yellow fluid just underneath the small tract which was centered right over the suture tape from the tension band construct I then subsequently cultured this fluid and sent this for aerobic and anaerobic cultures. Next I followed the suture and fluid which appeared to have a tract that communicated directly with the superior and lateral aspect of the patella where I tied my tension band strut construct. It was at this place where there was a small pocket of fluid that this appeared to have originated from this did not appear to be infectious in nature there is no necrotic type tissue or purulence. This appears to be more of a fluid collection or reaction of patient from the suture and this wanted bit of knots and suture culminating at the superior and lateral aspect of the patella. At this point in time I inspected my patella ORIF there is complete union of the patella ORIF and the small inferior and lateral aspect fracture fragment that appeared to be nonunion had a dense bit of fibrous union noted and at this point time no further dissection was needed. I determined at this point the next best step was to rid patient of the suture as well as the screws as this appeared to be causing the drainage. Suture was then cut and removed from all 3 screws atraumatically. Next utilizing large fluoroscopic C-arm imaging which I utilized throughout this case I subsequently triangulated and placed 3 K wires into the 3 cannulated screws and then utilizing appropriate screw heads back to the screws out atraumatically all 3 of the screws had noticeable and significant purchase of patient's bony anatomy none of these appear to be loose. These were backed out atraumatically. At this point time all screws and suture that was associated with the construct was then removed. I then took fluoroscopic addendum imaging of AP as well as lateral as well as knee range of motion under live fluoroscopy. The fracture was well maintained and healed. There was no evidence of fracture gapping at this point time I was satisfied with patient's surgery and removal of orthopedic hardware. In patient's CT scan there was talk of possible bony involvement and as a result I did take a small bit of bone cultures over the superior lateral aspect of the patella for the lateral screw was allegedly loose on CT scan however on my intraoperative findings this was not apparently loose. These bony cultures were then sent for aerobic and anaerobic as well. At this point time, the entire incision was then thoroughly irrigated with gravity cystoscopy tubing. At this point time tourniquet was deflated hemostasis was satisfactory with electrocautery. I then closed the incision in layered fashion with 0 PDS of the periosteum that I used to develop full-thickness leaves to identify my tension band construct and then subsequently closed the subcutaneous deep and subcutaneous layers with 0 and 2-0 PDS and 2-0 nylon in interrupted fashion was used to close the skin. Dressings of Xeroform 4 x 4's ABD Curlex soft roll and an Simeon wrap was then applied as well as patient was then placed into a knee immobilizer. Patient was then awakened from anesthesia and taken to PACU in stable condition. Disposition: Patient taken to PACU in stable condition recovering well. Patient receive appropriate discharge instructions as well as pain medication DVT prophylaxis and empiric antibiotics. We will continue to monitor cultures and adjust medications as needed if positive cultures will get infectious disease on board with assistance. Patient can be weightbearing as tolerated with knee immobilizer on in place. Patient family understand agree with current plan. All questions answered.
--- NOTE | 2022-11-11 17:12 | ECG_ITS ---
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 Measurements Intervals [place] Rate: 70 P: -38 MD: 226 QRS: -27 QRSD: 104 T: 27 QT: 423 QTc: 458 Interpretive Statements ELECTRONIC ATRIAL PACEMAKER LOW QRS VOLTAGE IN PRECORDIAL LEADS [QRS DEFLECTION < 1.0 mV IN CHEST LEADS] INCOMPLETE RIGHT BUNDLE BRANCH BLOCK [90+ ms QRS DURATION, TERMINAL R IN V1/V2, 40+ ms S IN I/aVL/V4/V5/V6] MODERATE VOLTAGE CRITERIA FOR LVH, CONSIDER NORMAL VARIANT [MEETS CRITERIA IN ONE OF: R(aVL), S(V1), R(V5), R(V5/V6)+S(V1)] POSSIBLE ANTERIOR MYOCARDIAL INFARCTION , OF INDETERMINATE AGE [30 ms Q WAVE IN V3/V4, OR R < 0.2 mV IN V4] Compared to ECG 05/16/2022 08:20:13 Incomplete right bundle-branch block now present Myocardial infarct finding now present Left anterior fascicular block no longer present Electronically Signed On 11-12-2022 0:31:58 CDT by Meeta Leggett M.D. [id number]
--- NOTE | 2022-11-11 17:20 | PC.NURSE ---
PT DENIES LEG PAIN BUT NOW C/O STOMACH PAIN AND PAIN UNDER HER LEFT BREAST. DR FLOWERS NOTIFIED BY PHONE AND ORDERS RECEIVED FOR EKG AND TROPONIN, BOTH ARE BEING DONE NOW.
--- NOTE | 2022-11-11 18:28 | PC.NURSE ---
IMAGE OF EKG WAS SENT TO DR FLOWERS AFTER IT WAS COMPLETED. I HAVE SPOKEN TO HER TWICE SINCE THEN WITH UPDATES. PT HAD ORIGINALLY C/O OF PAIN IN STOMACH THEN UNDER LEFT BREAST THEN RIGHT SIDE OF NECK. PT WAS TALKING TO FAMILY DURING THIS TIME. PT CALM, COLOR PINK, BP 130'S SYSTOLIC AND 70-80'S DIASTOLIC.PAIN WENT AWAY FROM EACH LOCATION THEN WITH IN 5 MINS. PT STATED NO PAIN AT ALL IN THESE AREAS NOW FOR 40 MIN. ONLY PAIN NOW IS IN HER KNEE. PT AND FAMILY ARE TALKING TO DR TOLBERT RIGHT NOW IN THE ROOM REGARDING POST OP CARE.
[2022-11-11 18:51] LABS: Troponin T (5th) Once 18 ng/L (0-10)
--- NOTE | 2022-11-11 19:31 | ANE.PACU2 ---
Inpatient post-anesthesia follow up: Airway intact: Yes Vital signs: Temperature 72 F Pulse Rate 72 Respiratory Rate 18 Blood Pressure 125/68 Pulse Oximetry 98 Oxygen Delivery Me thod Room Air Oxygen Flow Rate 6 Fraction of Inspir ed Oxygen Hydration adequate: Yes Nausea and vomiting: No Pain level: 3 Mental status: Baseline Additional Comments: Patient complained of stomach pain under L breast and at R neck. EKG was obtained and troponin drawn. Patient then became asymptomatic. EKG was discussed with Dr. Awa MD. He states the EKG shows changes, but nothing acute. Will await second set of troponins for further clinical decision making. Admitted to hospitalist service for further management.
--- NOTE | 2022-11-11 19:47 | PC.NURSE ---
dr osorio aware of lab results and spoke with pt and family in pts room. Plans of care is to admit pt for observation and more lab test. Family and pt aware and stated they are happy with this plan. Report called to nikki Rojo , on CSU, pt transported via gurney to room 104, placed in bed. Alia at bedside and care turned over.
[2022-11-11] MEDS: HYDROcodone-acetaminophen 5-325 mg Tablet 1 TAB PO (19:56)
[2022-11-11 20:37] LABS: Troponin T (5th) Once 18 ng/L (0-10)
--- NOTE | 2022-11-11 20:43 | XRR_ITS ---
PROCEDURE INFORMATION: Exam: XR Chest Exam date and time: 11/11/2022 7:56 PM Clinical indication: Pain; Chest pressure; Prior surgery; Surgery date: 6+ months; Surgery type: Pacer; Additional info: Chest pain TECHNIQUE: Imaging protocol: Radiologic exam of the chest. Views: 1 view. COMPARISON: No relevant prior studies available. FINDINGS: Tubes, catheters and devices: A left chest multi lead pacemaker is unchanged. Lungs: The lungs are clear and free of effusion. Incidental left lower lobe chronic calcified granuloma Pleural spaces: Unremarkable. No pleural effusion. No pneumothorax. Heart/Mediastinum: Unremarkable. No cardiomegaly. Bones/joints: Chronic deformity of the left humeral head and neck. XR/XR chest 1V portable [id number] IMPRESSION: No change, lungs clear
--- NOTE | 2022-11-11 20:43 | USCV_ITS ---
Kristina Johnson Age: 77 Gender: F : 1945 Exam Date: 11/11/2022 21:54 Ordering Phys: Sergio Duncan MD Technologist: MAGED [place] [facility] [place]: altered mental status following LT KNEE ORIF hardware removal 11/11/22 BP: 139 / 72 HR: 70 Rhythm: paced Technical Quality: Adequate MEASUREMENTS (Male / Female) Normal Values 2D ECHO LV Diastolic Diameter PLAX 3.6 cm 4.2 - 5.9 / 3.9 - 5.3 cm LV Systolic Diameter PLAX 2.3 cm IVS Diastolic Thickness 1.4 cm 0.6 - 1.0 / 0.6 - 0.9 cm IVS Systolic Thickness 1.4 cm LVPW Diastolic Thickness 1.3 cm 0.6 - 1.0 / 0.6 - 0.9 cm LVPW Systolic Thickness 1.4 cm LVOT Diameter 1.9 cm LV Ejection Fraction 2D Teich 68.7 % LV Ejection Fraction MOD 2C 71.4 % LV Ejection Fraction 2C AL 72.6 % LA Diameter 2.9 cm LA Width 3.2 cm LA Height 5.1 cm RA Width 2.6 cm RA Height 4.3 cm Aorta at Sinotubular Diameter 2.6 cm IVC Diameter 1.6 cm M-MODE Aortic Annulus Diameter 3.0 cm LA Ao Ratio MM 1.0 MV E Point Septal Separation 0.4 cm DOPPLER AV Peak Velocity 150.0 cm/s LVOT Peak Velocity 125.0 cm/s AV Area Cont Eq vti 2.0 cm squared AV Area Cont Eq pk 2.3 cm squared MV Peak Velocity 103.0 cm/s MV Area PHT 2.0 cm squared Mitral E to A Ratio 0.7 MV E' Velocity 37.5 cm/s Mitral E to MV E' Ratio 11.1 Mitral E to LV E' Lateral Ratio 13.4 Mitral E to LV E' Septal Ratio 9.5 TR Peak Velocity 222.7 cm/s TR Peak Gradient 19.8 mmHg TV Peak E Velocity 36.0 cm/s Right Atrial Pressure 5.0 mmHg Pulmonary Artery Systolic Pressu 24.8 mmHg PV Peak Velocity 103.0 cm/s RV Acceleration Time 0.1 s RV Ejection Time 0.4 s RV AcT/ET 0.3 FINDINGS Left Ventricle Normal left ventricular size, systolic function and wall thickness, with no regional wall motion abnormalities. Left ventricular ejection fraction is estimated at 65 %. Grade I/IV diastolic dysfunction (abnormal relaxation filling pattern), normal to mildly elevated filling pressures. Right Ventricle The right ventricle is normal in size and function. Normal right ventricular systolic pressure. Right Atrium The right atrium is normal in size. Left Atrium The left atrium is normal in size. Mitral Valve Structurally normal mitral valve. Trace mitral valve regurgitation. Aortic Valve Structurally normal trileaflet aortic valve. Trace aortic valve regurgitation. No aortic valve stenosis. Tricuspid Valve Structurally normal tricuspid valve. Trace tricuspid valve regurgitation. Pulmonic Valve Pulmonic valve not well visualized. Pericardium Normal pericardium without effusion. Aorta Normal ascending aorta dimension. IVC The inferior vena cava appears normal. CONCLUSIONS Normal left ventricular size, systolic function and wall thickness, with no regional wall motion abnormalities. Left ventricular ejection fraction is estimated at 65 %. Grade I/IV diastolic dysfunction (abnormal relaxation filling pattern), normal to mildly elevated filling pressures. Structurally normal mitral valve. Trace mitral valve regurgitation. Structurally normal trileaflet aortic valve. Trace aortic valve regurgitation. No aortic valve stenosis. From the previous study done 11/04/2013, the trivial mitral and aortic regurgitation are new. Otherwise, no change. Dr. Reymundo Billings MD (Electronically Signed) Final Date: 12 Nov 2022 09:08 S
--- NOTE | 2022-11-11 20:43 | USCV_ITS ---
Kristina Johnson Age: 77 Gender: F : 1945 Exam Date: 11/11/2022 21:27 Ordering Phys: Sergio Duncan MD Technologist: MAGED Exam Location: [facility] [place] Indication: altered mental status following LEFT knee ORIF hardware removal 11/11/22. no DM. quit smoking 2007 Risk Factors: altered mental status following LEFT knee ORIF hardware removal 11/11/22. no DM. quit smoking 2007 Previous Vascular Surgery: None Right Brachial BP: 139 / 72 Left Brachial BP: / Right Left Velocity (cm/s) Spectral Plaque Velocity (cm/s) Spectral Plaque Syst/Diast Broadening Syst/Diast Broadening 68.40/ 9.90 None Homo Prox CCA 90.10 / 15.50 Min Homo 65.10/ 12.10 Min Hetro Mid CCA 87.00 / 17.10 Min Oziel 90.40/ 16.50 Min Oziel Distal CCA 79.20 / 14.00 Min Oziel 99.20/ 18.70 Mod Oziel Prox ICA 71.70 / 15.40 Mod Oziel 78.30/ 18.70 Min Hetro Mid ICA 118.00/ 19.80 Min Hetro 65.10/ 13.20 Min Hetro Distal ICA 72.80 / 19.80 Min Hetro 138.90 Min Hetro ECA 170.90 Mod Hetro 1.10 ICA/CCA 1.31 Antegrade Vertebral Antegrade 35.30/ 8.80 cm/s 40.40/ 15.50 cm/s Tri Subclavian Tri 160.0 156.9 0 0 CONCLUSIONS Right ICA stenosis <50%. Moderate atheromatous plaque right carotid bulb/ICA. Left ICA stenosis <50%. Moderate atheromatous plaque left carotid bulb/ICA. Normal antegrade Doppler flow noted in the right vertebral artery. Normal antegrade Doppler flow noted in the left vertebral artery. Simone Limon MD (Electronically Signed) Final Date: 12 Nov 2022 12:28 S
--- NOTE | 2022-11-11 20:51 | P.HP_ITS ---
Providers/Chief Complaint Admitting Physician: Sergio Duncan MD Primary Care Provider: Migel Flores MD Chief Complaint: L76.82 History of Present Illness Kristina Johnson is a 77 year old female with a medical history of hypertension, history of CVA, who has undergone left postoperative incision and drainage of loose hardware, healed fracture with proposed irrigation debridement and possible removal of hardware, patient postoperatively was complaining of chest discomfort radiating to left neck, so hospitalist team was called for evaluation. Currently patient is seen in CSU, is alert to person, to place, not to time, her family members are at bedside, she denies any chest pain, no palpitations, no neck pain, she is not sure exactly what happened, she does not remember what happened in PACU currently she is just having a lot of knee pain and she has received her hydrocodone, she really has no complaints except for pain in her knee. Her family members at bedside tell me that postoperatively, and she was complaining of severe's chest pain, she was pointing to under her xiphoid, and then the pain was radiating to her neck, she denies a cardiovascular history, does have a family history of CAD, her father from an aneurysm, her sisters do tell me that recently she has been diagnosed with dementia and she is getting evaluation she has been more for getful she denies any dysuria, hematuria Review of Systems Const: Denies: fever(s) Eyes: Denies: change in vision Card: Reports: chest pain Resp: Denies: dyspnea GI: Denies: abdominal pain : Denies: flank pain Neuro: Denies: headache(s) Medications/Allergies Home Medications Medication Instructions Recorded Confirmed Last Taken Type simvastatin 10 mg tablet 10 mg PO BEDTIME 12/03/20 11/11/22 11/10/22 History Hope knee brace #1 ea 05/13/22 10/24/22 Unknown Rx tizanidine 4 mg tablet 4 mg PO Q8H PRN Muscle Spasm 05/29/22 11/11/22 11/10/22 History amlodipine 10 mg tablet 10 mg PO DAILY #90 tabs 06/02/22 11/11/22 11/11/22 Rx carvedilol 6.25 mg tablet 6.25 mg PO BID #180 tabs 06/02/22 11/11/22 11/11/22 Rx omeprazole 20 mg capsule,delayed 20 mg PO BID #90 caps 06/02/22 11/11/22 11/10/22 Rx release docusate sodium 100 mg capsule 100 mg PO BID 11/10/22 11/11/22 11/10/22 History aspirin 325 mg tablet 325 mg PO DAILY Blood clot 11/11/22 Unknown Rx prevention 14 days #14 tabs cephalexin 500 mg capsule 500 mg PO BID 14 days #28 caps 11/11/22 Unknown Rx hydrocodone 5 mg-acetaminophen 325 1 tab PO Q6H PRN severe pain 11/11/22 Unkn own Rx mg tablet postop 7 days #28 tabs mirtazapine 15 mg tablet 15 mg PO DAILY 11/11/22 11/11/22 11/10/22 History ondansetron 4 mg disintegrating 4 mg PO DAILY 5 days #5 tabs 11/11/22 Unknown Rx tablet tramadol 50 mg tablet 50 mg PO Q8H PRN pain mild, postop 11/11/22 Unknown Rx 7 days #21 tabs Allergies Allergy/AdvReac Type Severity Reaction Status Date / Time Sulfa (Sulfonamide Allergy Unknown rash Verified 11/11/22 12:30 Antibiotics) codeine Allergy nausea Verified 11/11/22 12:30 PFSH Acute PFSH: Medical History Benign essential hypertension Cerebrovascular disease CVA (cerebral vascular accident) Frequent falls Pacemaker Presence of permanent cardiac pacemaker SSS (sick sinus syndrome) Syncope and collapse Thrombotic stroke Surgical History Hx of cholecystectomy Hx of knee surgery Family History Mother Diabetes CAD (coronary artery disease) Father Diabetes CAD (coronary artery disease) Brother Diabetes x 10 brothers Hypertension x 10 brothers Lung disease Cancer CAD (coronary artery disease) x 4 brothers Stroke Sister Diabetes x 4 sisters Hypertension x 7 sisters CAD (coronary artery disease) Brother Stroke CAD (coronary artery disease) Cancer Diabetes Brother CAD (coronary artery disease) Diabetes Brother CAD (coronary artery disease) Brother CAD (coronary artery disease) Brother CAD (coronary artery disease) Brother CAD (coronary artery disease) Brother CAD (coronary artery disease) Sister Diabetes Lung disease Denies family history of Clotting disorder Dementia Chronic kidney disease (CKD) Suicide Anesthesia complication Bleeding disorder Social History Smoking and tobacco status: former smoker Alcohol intake: never Substance/Drug Use: never Vitals/I&O/Wt Last Vital Signs Temp 72 F L 11/11/22 18:19 Pulse 71 11/11/22 20:04 Resp 19 H 11/11/22 20:04 BP 139/72 11/11/22 20:04 Pulse Ox 98 11/11/22 20:04 O2 Del Method Room Air 11/11/22 20:04 O2 Flow Rate 6 11/11/22 16:17 11/11/22 11/11/22 11/11/22 06:59 14:59 22:59 Intake Total 150 / 150 1050 / 1200 Output Total 5 / 5 Balance 150 / 150 1045 / 1195 Weight last 48 hrs Weight 73.482 kg Weight 73.482 kg Physical Exam Const: COMMON NORMALS: no acute distress ORIENTATION/CONSCIOUSNESS: Yes awake, Yes oriented to person and Yes oriented to place; not oriented to time HENMT: COMMON NORMALS: normocephalic HEAD & SCALP: normocephalic Eye: COMMON NORMALS: EOMs intact bilaterally Neck/C-Spine: COMMON NORMALS: no JVD Resp: COMMON NORMALS: normal respiratory effort, No retractions, No use of accessory muscles and clear to auscultation bilaterally AUSCULTATION: clear to auscultation bilaterally Cardio: COMMON NORMALS: no JVD, regular rate, regular rhythm, S1 normal heart sound present and S2 normal heart sound present RATE: regular rate RHYTHM: regular rhythm HEART SOUNDS: S1 normal heart sound present and S2 normal heart sound present GI: COMMON NORMALS: Normal to inspection, nondistended, normoactive bowel sounds present, Soft to palpation, non-tender, no masses and no bruits PALP ATION: Yes Soft to palpation Extremity: COMMON NORMALS: no calf tenderness and no pedal edema Neuro: COMMON NORMALS: patient oriented x3, CN's II-XII intact bilaterally and moves all extremities Psych: COMMON NORMALS: mental status grossly normal Data 11/11/22 11:48 Other data: EKG read by me, shows paced rhythm, Q waves in anterior leads A&P Assessment and plan (1) Acute encephalopathy: (2) Chest pain: (3) Postoperative complication of skin involving drainage from surgical wound: (4) Dyslipidemia (high LDL; low HDL): (5) CVA (cerebral vascular accident): (6) Benign essential hypertension: Plan Chest pain -EKG shows paced rhythm, Q waves in entire leads -Sounds atypical in nature, currently denies any chest pain -Serial EKGs, troponins, telemetry monitoring -Aspirin, statin, beta-jenni -We will order cardiac echo -We will hold off on stress testing for now, Acute encephalopathy -Likely the effect of anesthetic, can follow commands -Telemetry monitoring, cardiac echo, carotid artery ultrasound, UA, CBC, TSH Recent left knee surgery -Lovenox for DVT prophylaxis -Continue Keflex -Full code Attestations Medical Necessity Statement*: Patient requires hospitalization, outpatient with observation, for chest pain Diagnoses Acute encephalopathy G93.40 Chest pain R07.9 Postoperative complication of skin involving drainage from surgical wound L76.82 Dyslipidemia (high LDL; low HDL) E78.5 CVA (cerebral vascular accident) I63.9 Benign essential hypertension I10
[2022-11-11] MEDS: tizanidine 4 mg Tablet PO (21:03)
[2022-11-11] MEDS: aspirin 81 mg EC Tablet PO (21:03)
[2022-11-11] MEDS: pantoprazole 40 mg SDV IVP (21:03)
[2022-11-11] MEDS: atorvastatin 40 mg Tablet 20 MG PO (21:03)
[2022-11-11] MEDS: enoxaparin 40 mg/0.4 mL Syringe SUBCUT (21:03)
[2022-11-11 21:27] LABS: Basophils % 0.2 %; Eosinophils % 0.2 %; Hematocrit 39.6 % (37.0-47.0); Hemoglobin 12.3 g/dL (11.5-15.3); Lymphocytes # 0.6 10^3/uL (0.8-4.8); Mean Corpuscular HGB Conc 31.1 g/dL (30.0-36.0); Mean Corpuscular Hemoglobin 26.3 pg (28.0-34.0); Mean Corpuscular Volume 84.8 fl (81-99); Mean Platelet Volume 9.3 fL (7.4-10.4); Monocytes # 0.1 10^3/uL (0.2-0.9); Monocytes % 1.3 %; Neutrophils # 5.46 10^3/uL (1.8-7.7); Nucleated Red Blood Cells % 0 %; Platelet Count 182 10^3/cmm (130-400); Red Blood Count 4.67 10^6/uL (4.1-5.3); Red Cell Distribution Width 13.2 % (12.1-15.1); White Blood Count 6.2 10^3/uL (4.0-10.0)
--- NOTE | 2022-11-11 21:52 | ECG_ITS ---
[facility] Test Date: 2022-11-11 Pat Name: Kristina Johnson Department: Room: 104 Gender: Female Decker Operator: : 1945 Requested By: Sergio Duncan Order Number: [id number] Brinda MD: Reymundo Billings M.D. Measurements Intervals [place] Rate: 77 P: -36 [place]: 227 QRS: -27 QRSD: 101 T: 164 QT: 404 QTc: 458 Interpretive Statements ELECTRONIC ATRIAL PACEMAKER BORDERLINE LEFT AXIS DEVIATION [QRS AXIS < -20] LOW QRS VOLTAGE IN PRECORDIAL LEADS [QRS DEFLECTION < 1.0 mV IN CHEST LEADS] PATTERN CONSISTENT WITH PULMONARY DISEASE INCOMPLETE RIGHT BUNDLE BRANCH BLOCK [90+ ms QRS DURATION, TERMINAL R IN V1/V2, 40+ ms S IN I/aVL/V4/V5/V6] MINIMAL VOLTAGE CRITERIA FOR LVH, CONSIDER NORMAL VARIANT [MEETS CRITERIA IN ONE OF: R(aVL), S(V1), R(V5), R(V5/V6)+S(V1)] NONSPECIFIC T-WAVE ABNORMALITY Compared to ECG 11/11/2022 17:21:05 T-wave abnormality now present Myocardial infarct finding no longer present Electronically Signed On 11-12-2022 14:22:03 CDT by Reymundo Billings M.D. [id number] f
[2022-11-11 21:57] LABS: Cholesterol 232 mg/dL (0-200); HDL Cholesterol 86 mg/dL (60-100); LDL Cholesterol Calculated 132 mg/dL (50-129); LDL HDL Ratio 1.53 RATIO (0.00-3.22); Magnesium 2.2 mg/dL (1.7-2.3); NT Pro B Type Natriuretic Pept 211 pg/mL (0-450); Phosphorus 3.5 mg/dL (2.5-4.5); Thyroid Stimulating Hormone 3.44 uIU/mL (0.27-4.20); Triglycerides 70 mg/dL (0-150)
[2022-11-11 22:02] LABS: Estmated Average Glucose 97
[2022-11-11] MEDS: morphine 4 mg/mL SDV 1 mL 1 MG IVP (23:19)
[2022-11-12] VITALS (11 sets, daily range): BP systolic 101–120; BP diastolic 44–61; PULSE 70–84; RESP 12–18; TEMP 36.4–36.8; O2SAT 93–98
--- NOTE | 2022-11-12 03:44 | ECG_ITS ---
[facility] Test Date: 2022-11-12 Pat Name: Kristina Johnson Department: Room: 104 Gender: Female Client Support Manager: : 1945 Requested By: Sergio Duncan Order Number: [id number] Brinda MD: Reymundo Billings M.D. Measurements Intervals [place] Rate: 75 P: -68 [place]: 225 QRS: -24 QRSD: 101 T: 62 QT: 394 QTc: 441 Interpretive Statements ELECTRONIC ATRIAL PACEMAKER BORDERLINE LEFT AXIS DEVIATION [QRS AXIS < -20] LOW QRS VOLTAGE IN PRECORDIAL LEADS [QRS DEFLECTION < 1.0 mV IN CHEST LEADS] POSSIBLE RIGHT VENTRICULAR CONDUCTION DELAY [RSR (QR) IN V1/V2] MINIMAL VOLTAGE CRITERIA FOR LVH, CONSIDER NORMAL VARIANT [MEETS CRITERIA IN ONE OF: R(aVL), S(V1), R(V5), R(V5/V6)+S(V1)] NONSPECIFIC T-WAVE ABNORMALITY ABNORMAL RHYTHM ECG INTERPRETATION BASED ON A DEFAULT AGE OF 40 YEARS Compared to ECG 11/11/2022 22:37:03 Incomplete right bundle-branch block no longer present T-wave abnormality still present Electronically Signed On 11-12-2022 14:24:07 CDT by Reymundo Billings M.D. [email or web address]/[id number] f
[2022-11-12 04:22] LABS: Basophils % 0.2 %; Hematocrit 35.2 % (37.0-47.0); Hemoglobin 10.9 g/dL (11.5-15.3); Lymphocytes # 0.9 10^3/uL (0.8-4.8); Lymphocytes % 14.4 %; Mean Corpuscular Hemoglobin 26.3 pg (28.0-34.0); Mean Corpuscular Volume 84.8 fl (81-99); Mean Platelet Volume 9.2 fL (7.4-10.4); Monocytes # 0.4 10^3/uL (0.2-0.9); Monocytes % 5.4 %; Neutrophils # 5.15 10^3/uL (1.8-7.7); Neutrophils % 79.5 %; Nucleated Red Blood Cells % 0 %; Platelet Count 172 10^3/cmm (130-400); Red Blood Count 4.15 10^6/uL (4.1-5.3); Red Cell Distribution Width 13.1 % (12.1-15.1); White Blood Count 6.5 10^3/uL (4.0-10.0)
[2022-11-12 04:45] LABS: Anion Gap 13.5 (5-19); Blood Urea Nitrogen 17 mg/dL (8-23); Carbon Dioxide 25 mmol/L (22-29); Chloride 106 mmol/L (98-107); Glucose 113 mg/dL (65-115); Osmolality Calculated 292 mOsm/kg (285-295); Potassium 4.5 mmol/L (3.5-5.1); Sodium 140 mmol/L (136-145); Troponin T (5th) Once 20 ng/L (0-10)
[2022-11-12] MEDS: HYDROcodone-acetaminophen 5-325 mg Tablet 1 TAB PO ×3 (06:08→18:55)
[2022-11-12] MEDS: tizanidine 4 mg Tablet PO ×3 (06:09→20:54)
[2022-11-12 06:13] LABS: Add Urine Microscopic? NO; Charge for UA Resulting for Rev
[2022-11-12 06:21] LABS: Bilirubin Urine Neg (Negative); Blood Urine Neg (Negative); Glucose Urine UA Norm (Normal); Ketones Urine Negative (Negative); Leukocyte Esterase Urine Negative (Negative); Nitrate Urine Negative (Negative); Protein Urine Neg (Negative); Urine Appearance Clear (CLEAR); Urine Color Yellow (Yellow); Urobilinogen Urine Neg (Negative); pH Urine 6 (5-7)
--- NOTE | 2022-11-12 07:20 | PC.PHAR ---
unable to update med rec pt has discharge orders in and rxs have been sent to [facility] and filled 11/11/22-medications entered were entered by marcia riggs OR surgery on 11/11/22-ext med history shows omeprazole 20mg daily filled 10/27/22 90d/s med rec entered by marcia shows 20mg bid written on 06/02/22-ext med history shows colace 100mg bid last filled 07/02/22 14d/s-ext med history shows tizanidine 4mg q8h prn last filled 05/14/22 13d/s-ext also shows a plavix 75mg daily filled 06/02/22 90d/s-
[2022-11-12] MEDS: aspirin 81 mg EC Tablet PO (08:40)
[2022-11-12] MEDS: mirtazapine 15 mg Tablet PO (08:40)
[2022-11-12] MEDS: docusate sodium 100 mg Capsule PO ×2 (08:40→17:24)
[2022-11-12] MEDS: cephALEXin 500 mg Capsule PO ×2 (08:40→17:24)
--- NOTE | 2022-11-12 10:27 | PC.NURSE ---
MD Domenic ordered to not give morning amlodipine and coreg.
--- NOTE | 2022-11-12 10:32 | PC.CHAP ---
Pastoral Care Encounter/Spiritual Assessment Type of Contact [] Declined civil litigation attorney visit [] Patient/Family/Request visit [] Outpatient visit [] Follow-up visit [] Physician referral [] Code/Alert [x] Routine visit [] Staff referral [] Actively dying [] Patient sleeping [x] Family support [] [] Out of room [] Palliative care [] [] Receiving care in room [] Pre-surgical visit [] Trauma [] Long length of stay [] ICU visit [] Other: Relational/Emotional Strength [x] Patient feels connected with others/family/visitors/staff [] Distress [] Loneliness/isolation [] Abandonment Spirituality of Patient [x] Person of Zhanna [] Attends Hinduism of their Zhanna [x] Believes in Prayer [] Reads Bible or Hinduism materials [] There are Spiritual issues to be addressed Journeyman Pipe Fitter Interventions [x] Prayer [x] Active listening [x] Non-anxious presence [x] Spiritual/emotional support [] Crisis/trauma care [] Spiritual counseling [] Bereavement support [] Provided bereavement packet [] Provided Bible/devotional materials [] Provided toy/stuffed animal, coloring book to patient or family member [] Provided Communion [] Anointing/[place] [] Salvation [x] Completed spiritual assessment [] Other: Impact on Illness or Injury [] Angry [] Fearful [] Anxious [] Often cries [] Exhaustion [] Unable to work [] Unable to attend jain [] Unable to walk/stand [] Unable to read [] Unable to drive [] Unable to eat/drink [] Unable to sleep [] Unable to be with family [] Patient intubated [] Other: Summary Time spent with patient 10 min
--- NOTE | 2022-11-12 10:40 | ECG_ITS ---
[facility] Test Date: 2022-11-12 Pat Name: Kristina Johnson Department: Room: 104 Gender: Female Md Ophthalmologist: : 1945 Requested By: Waldo Sheth Order Number: [id number] Brinda MD: Reymundo Billings M.D. Measurements Intervals [place] Rate: 71 P: -49 [place]: 256 QRS: -28 QRSD: 103 T: 2 QT: 381 QTc: 416 Interpretive Statements ELECTRONIC ATRIAL PACEMAKER LOW QRS VOLTAGE IN PRECORDIAL LEADS [QRS DEFLECTION < 1.0 mV IN CHEST LEADS] MINIMAL VOLTAGE CRITERIA FOR LVH, CONSIDER NORMAL VARIANT [MEETS CRITERIA IN ONE OF: R(aVL), S(V1), R(V5), R(V5/V6)+S(V1)] POSSIBLE ANTERIOR MYOCARDIAL INFARCTION , PROBABLY OLD [30 ms Q WAVE IN V3/V4, OR R < 0.2 mV IN V4] ABNORMAL RHYTHM ECG Compared to ECG 11/12/2022 03:44:52 Myocardial infarct finding now present T-wave abnormality no longer present Electronically Signed On 11-12-2022 14:20:14 CDT by Reymundo Billings M.D. [email or web address] [facility].Neovacs/store/NU/[id number] f
[2022-11-12 11:28] LABS: Troponin(5th) Baseline 22 ng/L (0-10)
--- NOTE | 2022-11-12 11:39 | PM.PN ---
Subjective Subjective: This morning patient is not complaining of chest pain patient stating that when she lays on her right side her pacemaker comes out of her left side and sits around her neck and she felt that I do not see any signs of mobility around the pacemaker site Patient is chest pain-free Hemodynamically stable Requesting another troponin series Will require stress test tomorrow morning Vitals/I&O/Wt Last Vital Signs Temp 98.1 F 11/12/22 07:37 Pulse 70 11/12/22 07:37 Resp 16 11/12/22 07:37 BP 103/60 11/12/22 07:37 Pulse Ox 94 11/12/22 07:37 O2 Del Method Room Air 11/12/22 07:37 O2 Flow Rate 6 11/11/22 16:17 11/11/22 11/12/22 11/12/22 22:59 06:59 14:59 Intake Total 1410 / 1560 360 / 360 Output Total 5 / 5 200 / 205 Balance 1405 / 1555 -200 / 1355 360 / 360 Weight last 48 hrs Weight 73.482 kg Weight 73.482 kg Physical Exam Narrative: Awake and alert Pacemaker site unremarkable Awake and alert Euvolemic Left leg insect knee brace Abdomen soft Currently on room air Family is at the bedside Data 11/12/22 03:54 11/12/22 03:54 A&P Assessment and plan (1) Unstable angina: (2) Early satiety: (3) Acute encephalopathy: (4) Dyslipidemia (high LDL; low HDL): (5) CVA (cerebral vascular accident): (6) Benign essential hypertension: Plan Unstable angina I will request another series of troponin EKG showing paced rhythm No active chest pain Considering her age and risk factors I will like to do stress test tomorrow morning Patient and family agreeable Currently chest pain-free Hemodynamically stable Blood pressure was 103/67 I asked nurse to hold blood pressure medications for today Echo unremarkable N.p.o. after midnight Stress test scheduled for tomorrow Full code Cardiac diet until midnight DVT prophylaxis Lovenox on board patient is complaining of muscle cramps I will give her Flexeril 1 dose History of sick sinus syndrome status post pacemaker Attestations Medical Necessity Statement*: Discharge tomorrow Diagnoses Unstable angina I20.0 Early satiety R68.81 Acute encephalopathy G93.40 Dyslipidemia (high LDL; low HDL) E78.5 CVA (cerebral vascular accident) I63.9 Benign essential hypertension I10
[2022-11-12] MEDS: cyclobenzaprine 10 mg Tablet 5 MG PO (11:56)
--- NOTE | 2022-11-12 12:40 | ECG_ITS ---
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 Measurements Intervals [place] Rate: 76 P: -26 [place]: 245 QRS: -59 QRSD: 119 T: 174 QT: 390 QTc: 439 Interpretive Statements ELECTRONIC ATRIAL PACEMAKER LOW QRS VOLTAGE IN PRECORDIAL LEADS [QRS DEFLECTION < 1.0 mV IN CHEST LEADS] INCOMPLETE RIGHT BUNDLE BRANCH BLOCK [90+ ms QRS DURATION, TERMINAL R IN V1/V2, 40+ ms S IN I/aVL/V4/V5/V6] INFERIOR MYOCARDIAL INFARCTION , PROBABLY OLD [40+ ms Q WAVE AND/OR ST/T ABNORMALITY IN II/aVF] ANTEROLATERAL MYOCARDIAL INFARCTION , OF INDETERMINATE AGE [40+ ms Q WAVE IN I/aVL/V3-V6] Compared to ECG 11/12/2022 11:32:11 Incomplete right bundle-branch block now present Myocardial infarct finding still present Electronically Signed On 11-12-2022 14:26:11 CDT by Reymundo Billings M.D. [id number]
[2022-11-12 13:34] LABS: Troponin 5 2HR 22.83 ng/L (0-10)
[2022-11-12 13:37] LABS: Troponin 5 2HR Delta 0.83 ABS# (0-10)
--- NOTE | 2022-11-12 16:40 | ECG_ITS ---
[facility] Test Date: 2022-11-12 Pat Name: Kristina Johnson Department: Room: 104 Gender: Female Tripe Finisher: : 1945 Requested By: Waldo Sheth Order Number: [id number] Brinda MD: Meeta Leggett M.D. Measurements Intervals [place] Rate: 69 P: -45 [place]: 248 QRS: -26 QRSD: 101 T: 38 QT: 396 QTc: 427 Interpretive Statements ELECTRONIC ATRIAL PACEMAKER LOW QRS VOLTAGE IN PRECORDIAL LEADS [QRS DEFLECTION < 1.0 mV IN CHEST LEADS] POSSIBLE ANTERIOR MYOCARDIAL INFARCTION , PROBABLY OLD [30 ms Q WAVE IN V3/V4, OR R < 0.2 mV IN V4] ABNORMAL RHYTHM ECG Compared to ECG 11/12/2022 12:58:56 Incomplete right bundle-branch block no longer present Myocardial infarct finding still present Electronically Signed On 11-13-2022 21:25:29 CDT by Meeta Leggett M.D. [email or web address] in my Pocket (PRIMP)[facility].[email or web address]/store/OM/[id number]/[id number]
[2022-11-12 18:01] LABS: Troponin 5 6HR 25.21 ng/L (0-10)
[2022-11-12 18:02] LABS: Troponin 5 6HR Delta 3.21 ng/L (0-12)
[2022-11-12] MEDS: pantoprazole 40 mg SDV IVP (20:53)
[2022-11-12] MEDS: enoxaparin 40 mg/0.4 mL Syringe SUBCUT (20:54)
[2022-11-12] MEDS: atorvastatin 40 mg Tablet 20 MG PO (20:54)
[2022-11-13] VITALS (8 sets, daily range): BP systolic 95–167; BP diastolic 47–64; PULSE 70–84; RESP 17–20; TEMP 36.9–37.1; O2SAT 91–98
--- NOTE | 2022-11-13 | ECG_ITS ---
[facility] Test Date: 2022-11-13 Pat Name: Kristina Johnson Department: Room: 104 Gender: Female Business Process Engineer: : 1945 Requested By: Waldo Sheth Order Number: [id number] Brinda MD: Meeta Leggett M.D. Interpretive Statements NAME OF STUDY: LEXISCAN SESTAMIBI STRESS TEST INDICATION: UNSTABLE ANGINA PROCEDURE: At the baseline, the EKG normal sinus rhythm with probable progression. Left axis deviation. Nonspecific T wave changes. Revealed. The baseline heart was 70 bpm with a blood pressue of 106/79 mm of Hg Lexiscan was infused over a period of 20 seconds. A total of 0.4 milligrams of Lexiscan was infused. The stress phase was continued for a total of 5 minutes. Heart rate at the end of the stress phase was 70 bpm with a blood pressure 67/44 mm of Hg. The EKG at the peak infusion revealed no significant changes. Sestamibi was injected 20 seconds after the Lexiscan infusion. Heart rate at the end of the recovery phase was 71 bpm with a blood pressure of 101/62 mm of Hg. CONCLUSION: 1. No significant EKG changes with the LexiScan infusion 2. No LexiScan induced chest pain or cardiac arrhythmia 3. Normal blood pressure and heart rate response 4. Sestamibi/sestamibi perfusion scan pending; see separate report. Electronically Signed On 11-18-2022 20:11:09 CDT by Meeta Leggett M.D. [email or web address] [id number]
[2022-11-13] MEDS: HYDROcodone-acetaminophen 5-325 mg Tablet 1 TAB PO ×2 (02:43→09:40)
[2022-11-13] MEDS: tizanidine 4 mg Tablet PO (06:35)
[2022-11-13] MEDS: regadenoson 0.4 Mg/5 ml Syringe IVP (07:41)
--- NOTE | 2022-11-13 07:46 | PC.PHAR ---
DAVI TOLBERT HAS DISCHARGE ORDERS IN FOR THIS PATIENT- PRESCRIPTIONS HAVE BEEN FILLED - UNABLE TO COMPLETE MED REC
--- NOTE | 2022-11-13 08:00 | NMCV_ITS ---
NM casey perf SPECT r/s* [id number] Kristina Johnson Age: 77 Gender: F : 1945 Exam Date: 11/13/2022 07:02 Ordering Phys: Waldo Sheth MD Technologist: FELIX Barney Exam Location: [facility] Indications: CHEST PAIN STRESS TEST Please see separate stress test report in [facility] for full findings IMAGE PROTOCOL Rest/Stress 1 Lexiscan Day Radiopharmaceutical Dose (mCi) Administration Site Administered by Rest: Tc-99m 10.8 IV FELIX Hernandes Sestamibi Stress:Tc-99m 32.4 IV FELIX Hernandes Sestamibi Rest: 13-Nov-2022 60 Discovery 630 Stress: 13-Nov-2022 30 Discovery 630 0.4mg Lexiscan. Supine position only as patient was unable to lay prone. SPECT RESULTS Technical Quality: Excellent Raw Data Analysis: Normal Image Corrections: No attenuation or motion correction applied Summed Stress Score: 0 Summed Rest Score: 0 Summed Difference Score: 0 PERFUSION FINDINGS SPECT images demonstrate homogeneous tracer distribution throughout the myocardium. FUNCTIONAL RESULTS (calculated via Gated SPECT) Stress Image LV EF (%): 83 Stress EDV (mL):52 TID: 0.79 Stress ESV (mL):9 FUNCTIONAL FINDINGS: There is normal left ventricular systolic function. IMPRESSIONS 1. Normal myocardial perfusion imaging with no evidence of ischemia 2. LV systolic function is normal Daniel Birmingham MD (Electronically Signed) Final Date: 13 Nov 2022 09:08 S
[2022-11-13] MEDS: mirtazapine 15 mg Tablet PO (09:35)
[2022-11-13] MEDS: aspirin 81 mg EC Tablet PO (09:35)
[2022-11-13] MEDS: docusate sodium 100 mg Capsule PO (09:36)
[2022-11-13] MEDS: cephALEXin 500 mg Capsule PO (09:36)
--- NOTE | 2022-11-13 10:35 | P.DS_ITS ---
Discharge Providers Date of Admission: 11/11/22 20:43 Date of Discharge: November 13, 2022 Attending Provider at Admission: Sergio Duncan MD Attending Provider at Discharge: Waldo Sheth MD Primary Care Provider: Migel Flores MD Diagnoses at Discharge Discharge Diagnosis (1) Unstable angina: Status: Acute (2) Early satiety: Status: Acute (3) Acute encephalopathy: Status: Acute (4) Dyslipidemia (high LDL; low HDL): Status: Acute (5) CVA (cerebral vascular accident): Status: Acute (6) Benign essential hypertension: Status: Acute Reason for Visit Reason for Visit: L76.82 Hospital Course Hospital Course 77-year-old female who was admitted to medical service after she had left postoperative incision and drainage of loose hardware for her left knee, patient developed chest pain after her surgery, stress test was requested which was unremarkable, patient remained hemodynamically stable, patient seems very anxious was complaining of muscle cramps, she will get opioids, bowel regimen and muscle relaxant at the time of discharge. She will be discharged home on home health services. Echo was unremarkable. Her rhythm is paced, patient was stating that she thinks her pacemaker is shifting from left side of her chest to her right, I told her this is physiologically anatomically impossible, she complained about this after her surgery which could be due to anesthesia effect causing some hallucinations. Physical Exam Narrative: Awake and alert GCS 15 S1, S2 paced rhythm Abdomen soft GCS 15 Nonfocal neuro exam Left leg covered in dressing Discharge Data Studies Completed and Pending Completed Studies During Hospitalization Category Date Time Status Sestamibi Stress Test Request Routine Exams 11/13/22 06:00 Draft XR chest 1V portable [id number] Stat Exams 11/11/22 20:43 Completed NM casey perf SPECT r/s* [id number] Routine Nuc Med 11/13/22 08:00 Completed CV carotid duplex BI* [id number] Routine Ultrasound 11/11/22 20:43 Completed CV. echo complete* [id number] Routine Ultrasound 11/11/22 20:43 Completed Pending at discharge Category Date Time Status C-arm Fluoroscopy [id number] Routine Exams 11/11/22 12:20 Taken Sestamibi Stress Test Request Routine Exams 11/12/22 11:40 Stop Req Anaerobic Culture Routine Lab 11/11/22 14:33 Results Anaerobic Culture Routine Lab 11/11/22 14:33 Results Tissue Culture and Gram Stain Routine Lab 11/11/22 15:22 Results Wound Culture Routine Lab 11/11/22 14:33 Results Wound Culture and Gram Stain Routine Lab 11/11/22 14:33 Results Radiology Impressions Chest X-Ray 11/11/22 20:43 IMPRESSION: No change, lungs clear Laboratory Results WBC 6.5 10^3/uL (4.0-10.0) 11/12/22 03:54 RBC 4.15 10^6/uL (4.1-5.3) 11/12/22 03:54 Hgb 10.9 g/dL (11.5-15.3) L 11/12/22 03:54 Hct 35.2 % (37.0-47.0) L 11/12/22 03:54 MCV 84.8 fl (81-99) 11/12/22 03:54 MCH 26.3 pg (28.0-34.0) L 11/12/22 03:54 MCHC 31.0 g/dL (30.0-36.0) 11/12/22 03:54 RDW 13.1 % (12.1-15.1) 11/12/22 03:54 Plt Count 172 10^3/cmm (130-400) 11/12/22 03:54 MPV 9.2 fL (7.4-10.4) 11/12/22 03:54 Neut % (Auto) 79.5 % 11/12/22 03:54 Lymph % (Auto) 14.4 % 11/12/22 03:54 [place] % (Auto) 5.4 % 11/12/22 03:54 Eos % (Auto) 0.0 % 11/12/22 03:54 Baso % (Auto) 0.2 % 11/12/22 03:54 Neut # (Auto) 5.15 10^3/uL (1.8-7.7) 11/12/22 03:54 Lymph # (Auto) 0.9 10^3/uL (0.8-4.8) 11/12/22 03:54 [place] # (Auto) 0.4 10^3/uL (0.2-0.9) 11/12/22 03:54 Eos # (Auto) 0.0 10^3/uL (0.0-0.8) 11/12/22 03:54 Baso # (Auto) 0.0 10^3/uL (0.0-0.1) 11/12/22 03:54 Nucleated RBC % (auto) 0 % 11/12/22 03:54 Nucleated RBCs # 0.0 /100WBC 11/12/22 03:54 Sodium 140 mmol/L (136-145) 11/12/22 03:54 Potassium 4.5 mmol/L (3.5-5.1) 11/12/22 03:54 Chloride 106 mmol/L (98-107) 11/12/22 03:54 Carbon Dioxide 25 mmol/L (22-29) 11/12/22 03:54 Anion Gap 13.5 (5-19) 11/12/22 03:54 BUN 17 mg/dL (8-23) 11/12/22 03:54 Creatinine 0.8 mg/dL (0.5-0.9) 11/12/22 03:54 GFR Calculation Not Reportable 11/12/22 03:54 Glucose 113 mg/dL (65-115) 11/12/22 03:54 Estimat Average Glucose 97 11/11/22 21:05 Hemoglobin A1c 5.0 % (4.0-6.0) 11/11/22 21:05 Calculated Osmolality 292 mOsm/kg (285-295) 11/12/22 03:54 Calcium 9.0 mg/dL (8.5-10.5) 11/12/22 03:54 Phosphorus 3.5 mg/dL (2.5-4.5) 11/11/22 21:05 Magnesium 2.2 mg/dL (1.7-2.3) 11/11/22 21:05 Troponin T Gen 5 ng/L 20 ng/L (0-10) H 11/12/22 03:54 Troponin T Baseline 22 ng/L (0-10) H 11/12/22 11:04 Troponin T 120 Minute 22.83 ng/L (0-10) H 11/12/22 13:05 Delta Troponin T 0.83 ABS# (0-10) 11/12/22 13:05 Troponin T Hi Sens 6Hr 25.21 ng/L (0-10) H 11/12/22 17:20 Troponin T Hi Sens 6Hr Delta 3.21 ng/L (0-12) 11/12/22 17:20 NT-Pro-B Natriuret Pep 211 pg/mL (0-450) 11/11/22 21:05 Triglycerides 70 mg/dL (0-150) 11/11/22 21:05 Cholesterol 232 mg/dL (0-200) H 11/11/22 21:05 LDL Cholesterol, Calc 132 mg/dL (50-129) H 11/11/22 21:05 HDL Cholesterol 86 mg/dL (60-100) 11/11/22 21:05 LDL/HDL Ratio 1.53 RATIO (0.00-3.22) 11/11/22 21:05 Cholesterol/HDL Ratio 2.70 mg/dL (0.0-4.40) 11/11/22 21:05 TSH 3.44 uIU/mL (0.27-4.20) 11/11/22 21:05 Urine Color Yellow (Yellow) 11/12/22 06:00 Urine Appearance Clear (CLEAR) 11/12/22 06:00 Urine pH 6 (5-7) 11/12/22 06:00 Ur Specific [place] 1.020 (1.005-1.030) 11/12/22 06:00 Urine Protein Neg (Negative) 11/12/22 06:00 Urine Glucose (UA) Norm (Normal) 11/12/22 06:00 Urine Ketones Negative (Negative) 11/12/22 06:00 Urine Blood Neg (Negative) 11/12/22 06:00 Urine Nitrate Negative (Negative) 11/12/22 06:00 Urine Bilirubin Neg (Negative) 11/12/22 06:00 Urine Urobilinogen Neg mg/dL (Negative) 11/12/22 06:00 Ur Leukocyte Esterase Negative (Negative) 11/12/22 06:00 Vitals Last Vital Signs Temp 98.5 F 11/13/22 07:00 Pulse 72 11/13/22 07:59 Resp 20 H 11/13/22 07:00 BP 95/58 11/13/22 07:59 Pulse Ox 98 11/13/22 07:00 O2 Del Method Room Air 11/13/22 07:00 O2 Flow Rate 6 11/11/22 16:17 Discharge Plan Discharge Patient Disposition: Home Health Service Condition: Stable Prescriptions: New hydrocodone-acetaminophen 5-325 mg tablet 1 tab PO Q6H PRN (Reason: severe pain postop) 7 Days Qty: 28 0RF ondansetron 4 mg tablet,disintegrating 4 mg PO DAILY 5 Days Qty: 5 0RF tramadol 50 mg tablet 50 mg PO Q8H PRN (Reason: pain mild, postop) 7 Days Qty: 21 0RF aspirin 325 mg tablet 325 mg PO DAILY 14 Days Qty: 14 0RF cephalexin 500 mg capsule 500 mg PO BID 14 Days Qty: 28 0RF Continued (DME) [place] knee brace See Rx Instructions .Route .MEDSUPPLY Qty: 1 0RF Rx Instructions: Left knee locked at full extension No motion simvastatin 10 mg tablet 10 mg PO BEDTIME tizanidine 4 mg Tablet 4 mg PO Q8H PRN (Reason: Muscle Spasm) omeprazole 20 mg capsule,delayed release(DR/EC) 20 mg PO BID Qty: 90 0RF docusate sodium 100 mg capsule 100 mg PO BID mirtazapine 15 mg Tablet 15 mg PO DAILY Held carvedilol 6.25 mg Tablet 6.25 mg PO BID Qty: 180 0RF Hold Instructions: Resume on 11/15/22. amlodipine 10 mg Tablet 10 mg PO DAILY Qty: 90 0RF Hold Instructions: Resume on 11/15/22. Discharge Orders: Discharge Order (Routine); Ordered 11/13/22 Ordered By: Giancarlo Krishna Referrals: [facility] Home Services Set Up [Other] (The number for the [facility] In Home Services Set Up is [phone]. Please reach out to them and they can assist you with getting services set up.) [facility] ([facility]) [Outside] Giancarlo Krishna, [Physician] - Discharge Diet: Advance as tolerated Discharge Activity: Increase activity as tolerated and Use walker/crutches as instructed Patient Instructions: Cephalexin (By mouth), Hydrocodone/Acetaminophen (By mouth) (Vicodin, Arpin, Lortab), Aspirin (By mouth) (Rinku Extra Strength, Rinku Aspirin Children's,..., Tramadol (By mouth), Ondansetron (By mouth), Opioid Safety, Post Anesthesia Care Activity Restrictions/Additional Instructions: Orthopedic discharge instructions: Patient should maintain dressing leave this on in place for at least 72 hours. At that point time may remove Simeon bandage in cotton padding. Leave Silverlon bandage dressing on in place over the incision for at least 7 days. Sponge baths until then. After 7 days may remove Silverlon dressing and may rinse incision with warm soapy water pat dry and redress with a dry bandage. Recommend elevation and ice as needed for pain and swelling Take pain medication as prescribed (tramadol for mild pain, Arpin for severe pain) Take antinausea medication as needed Take aspirin 325 mg once daily for blood clot prevention for 2 weeks Take antibiotics as prescribed for infection prophylaxis Patient may weight-bear as tolerated in knee immobilizer to the right lower extremity Utilize crutches or walker to assist with ambulation Utilize knee immobilizer until follow-up Follow-up with Dr. Krishna in the office in 2 weeks Contact the office for any questions or concerns Please do not take your blood pressure medications if systolic/upper number of blood pressure is around 100 mmHg. You can hold your amlodipine and carvedilol for next 24 to 48 hours Discharge Attestations Time Spent in Discharge Care*: greater than 30 min Quality Metrics Clinical Quality Measures [ No reported AMI, CVA or VTE this stay] Coding Level of Care Code Acute Code for Chg Fwd Diagnoses Unstable angina I20.0 Early satiety R68.81 Acute encephalopathy G93.40 Dyslipidemia (high LDL; low HDL) E78.5 CVA (cerebral vascular accident) I63.9 Benign essential hypertension I10
--- NOTE | 2022-11-15 19:45 | PM.MISC ---
Miscellaneous Note Purpose of Documentation: Orthopedic note update: After cases was notified the patient was still recovering in PACU and potential admission. I discussed with anesthesia as well as patient. Patient allegedly had complained of some chest pain postoperatively. Patient currently denies any chest pain at this point. At this point time this is getting worked up by the anesthesia team EKGs ordered as well as troponins. These will continue to be monitored and plan for likely hospitalist admission for monitoring. Was able to have discussion with patient she does appear slightly confused postoperatively but she is able to follow commands. Will defer to anesthesia, cardiac and hospitalist for final definitive care pertaining to this. Patient should continue to follow postoperative recommendations and cultures will be monitored. Patient family understand agree with current plan. Questions answered. Appreciate anesthesia cardiac and the hospitalist for assistance in the care of patient. Giancarlo Krishna, DO
== END 2022-11-13 12:00 | disposition home health service (06) ==
LOC: CSU 11-12 02:25
PROVIDERS: Anesthesiology; Student in an Organized Health Care Education/Training Program; Admitting Provider Family Medicine; PCP Family Medicine; Visit Provider Internal Medicine
DX: T84.84XA Pain due to internal orthopedic prosthetic devices, implants and grafts, initial encounter (principal); G89.18 Other acute postprocedural pain; M25.562 Pain in left knee; I20.0 Unstable angina; R68.81 Early satiety; G93.40 Encephalopathy, unspecified; E78.5 Hyperlipidemia, unspecified; I10 Essential (primary) hypertension; I45.10 Unspecified right bundle-branch block; I65.23 Occlusion and stenosis of bilateral carotid arteries; Z79.899 Other long term (current) drug therapy; Z79.82 Long term (current) use of aspirin; Z86.73 Personal history of transient ischemic attack (TIA), and cerebral infarction without residual deficits; Y83.8 Other surgical procedures as the cause of abnormal reaction of the patient, or of later complication, without mention of misadventure at the time of the procedure; Z88.2 Allergy status to sulfonamides
CPT/HCPCS: 20680; 29871; 36415; 71045; 73562; 76000; 78452; 80048; 80061; 81003; 83036; 83735; 83880; 84100; 84443; 84484; 85025; 87070; 87075; 87176; 87205; 93005; 93017; 93306; 93880; 96372; 96374; 96376; 97110; 97161; A9500; C1713; C9113; G0378; J0131; J0690; J1100; J1170; J1650; J1885; J2270; J2405; J2704; J2785; J3010; J7030

== ENCOUNTER → 2022-11-27 11:47 | Outpatient (BNVA) | payer MEDICARE, SELFPAY | PROVIDERS: PCP Family Medicine; Visit Provider Student in an Organized Health Care Education/Training Program | DX: S82.002A Unspecified fracture of left patella, initial encounter for closed fracture (principal); X58.XXXA Exposure to other specified factors, initial encounter | CPT/HCPCS: 73562; 99024 ==

== ENCOUNTER 2022-12-05 10:01 | Day surgery (SDC) | payer MEDICARE, SELFPAY ==
[2022-12-05] VITALS (11 sets, daily range): BP systolic 102–135; BP diastolic 58–77; PULSE 70–73; RESP 8–18; TEMP 36.1–36.6; O2SAT 92–100; BMI 23.3
--- NOTE | 2022-12-05 10:40 | W.ED.GENADLT ---
Documented by User: Susan Rhodes PA-C 12/05/22 12:47 HPI - General Adult General: Chief complaint: Wound/Laceration Stated complaint: fall, left knee incision open Time Seen by Provider: 12/05/22 10:40 Source: patient Mode of arrival: wheelchair Limitations: no limitations History of Present Illness: 57-year-old female presents to the ER with an open knee wound to the left knee. Patient had surgery to remove hardware on 11/11/22. Patient reports this morning she tripped and fell, landing on the left knee. Patient reports the incision immediately split open. Bleeding is currently controlled and she has some mild pain. Patient came straight to the ER. Review of Systems General: Reports: 10 or more systems reviewed and unremarkable except in HPI and below PFSH ED PFSH: Medical History Acute encephalopathy Benign essential hypertension Cerebrovascular disease Chest pain CVA (cerebral vascular accident) Dyslipidemia (high LDL; low HDL) Early satiety Frequent falls Pacemaker Postoperative complication of skin involving drainage from surgical wound Presence of permanent cardiac pacemaker SSS (sick sinus syndrome) Syncope and collapse Thrombotic stroke Unstable angina Surgical History Hx of cholecystectomy Hx of knee surgery Family History Mother Diabetes CAD (coronary artery disease) Father Diabetes CAD (coronary artery disease) Brother Diabetes x 10 brothers Hypertension x 10 brothers Lung disease Cancer CAD (coronary artery disease) x 4 brothers Stroke Sister Diabetes x 4 sisters Hypertension x 7 sisters CAD (coronary artery disease) Brother Stroke CAD (coronary artery disease) Cancer Diabetes Brother CAD (coronary artery disease) Diabetes Brother CAD (coronary artery disease) Brother CAD (coronary artery disease) Brother CAD (coronary artery disease) Brother CAD (coronary artery disease) Brother CAD (coronary artery disease) Sister Diabetes Lung disease Denies family history of Clotting disorder Dementia Chronic kidney disease (CKD) Suicide Anesthesia complication Bleeding disorder Social History Smoking and tobacco status: former smoker Alcohol intake: never Substance/Drug Use: never Physical Exam Const: COMMON NORMALS: average body habitus, patient oriented x3 and alert Resp: COMMON NORMALS: normal respiratory effort EFFORT & INSPECTION: Yes able to speak in complete sentences Cardio: COMMON NORMALS: regular rate and regular rhythm RATE: regular rate RHYTHM: regular rhythm Extremity: NARRATIVE EXTREMITY EXAM: Patient has an open wound to the left knee over the patella. This is approximately 10 cm in length. Bleeding is currently controlled. This is a clean splitting of the incision over the patella from recent surgery. Neuro: COMMON NORMALS: patient oriented x3 SENSORIUM/ORIENTATION: Yes alert Psych: COMMON NORMALS: mental status grossly normal, Normal thought process present and cooperative THOUGHT PROCESS: Normal thought process present Skin: NARRATIVE SKIN EXAM: See extremity exam, incision has opened over the left patella. Bleeding controlled. Course ED course: Patient presents to the ER for left knee open wound. Patient had hardware removed 11/11/22. Patient fell this morning landing on her left knee. She reports the wound opened up at that time. Patient's bleeding is controlled. She has approximately a 10 cm opening of the incision over the left patella. We will contact Dr. Krishna who did the surgery. Reevaluation(s): Reevaluation #1: Spoke to Dr. Mcguire about this patient at approximately 11 AM and patient was given morphine for pain. Time: 11:10 Consultations: Consultation #1: Dr. Krishna is out on vacation. Dr. Patterson will be contacted. Time: 11:00 Consultation #2: Spoke with Dr. Joyce, patient will go to surgery at this time for closure and washout. Patient last ate about 7 AM. Time: 12:44 Vital Signs: Vital signs: Vital Signs Temperature 97.0 F L 12/05/22 14:44 Pulse Rate 73 12/05/22 15:26 Respiratory Rate 17 12/05/22 15:26 Blood Pressure 130/65 12/05/22 15:26 Pulse Oximetry 94 12/05/22 15:26 Oxygen Delivery Me thod Room Air 12/05/22 15:26 Oxygen Flow Rate 6 12/05/22 14:25 MDM - General Adult Medical Decision Making Patient has gaping wound to the left knee from fall this morning. Given recent surgery, patient needs to go back to the OR for washout and closure. Dr. Joyce excepts patient and will take patient straight to surgery this morning. Patient reports last ate a small cookie about 7 AM this morning but nothing since. Lab Data Radiology Impressions Knee X-Ray 12/05/22 14:17 Impression: No change in old fracture of left patella and medial joint compartment narrowing. Kellgren-Johny Classification: grade 1 (doubtful): doubtful joint space narrowing and possible osteophytic lipping Critical Care Time Critical Care Time: Critical Care Time: No Discharge Plan Discharge Patient Disposition: Placed in Observation Clinical Impression: Laceration of knee, left Qualifiers: Encounter type: initial encounter Qualified Code(s): S81.012A - Laceration without foreign body, left knee, initial encounter Discharge Diet: Advance as tolerated Discharge Activity: Limit activity as instructed Coding Level of Care Code ED Patient Financial Advocate for Chg Fwd Documented by User: Jens Stratton DO 12/15/22 07:32 HPI - General Adult General: Chief complaint: Wound/Laceration Stated complaint: fall, left knee incision open Time Seen by Provider: 12/05/22 10:40 PFSH ED PFSH: Medical History Acute encephalopathy Benign essential hypertension Cerebrovascular disease Chest pain CVA (cerebral vascular accident) Dyslipidemia (high LDL; low HDL) Early satiety Frequent falls Pacemaker Postoperative complication of skin involving drainage from surgical wound Presence of permanent cardiac pacemaker SSS (sick sinus syndrome) Syncope and collapse Thrombotic stroke Unstable angina Surgical History Hx of cholecystectomy Hx of knee surgery Family History Mother Diabetes CAD (coronary artery disease) Father Diabetes CAD (coronary artery disease) Brother Diabetes x 10 brothers Hypertension x 10 brothers Lung disease Cancer CAD (coronary artery disease) x 4 brothers Stroke Sister Diabetes x 4 sisters Hypertension x 7 sisters CAD (coronary artery disease) Brother Stroke CAD (coronary artery disease) Cancer Diabetes Brother CAD (coronary artery disease) Diabetes Brother CAD (coronary artery disease) Brother CAD (coronary artery disease) Brother CAD (coronary artery disease) Brother CAD (coronary artery disease) Brother CAD (coronary artery disease) Sister Diabetes Lung disease Denies family history of Clotting disorder Dementia Chronic kidney disease (CKD) Suicide Anesthesia complication Bleeding disorder Social History Smoking and tobacco status: former smoker Alcohol intake: never Substance/Drug Use: never Course Vital Signs: Vital signs: Vital Signs Temperature 97.0 F L 12/05/22 14:44 Pulse Rate 73 12/05/22 15:26 Respiratory Rate 17 12/05/22 15:26 Blood Pressure 130/65 12/05/22 15:26 Pulse Oximetry 94 12/05/22 15:26 Oxygen Delivery Me thod Room Air 12/05/22 15:26 Oxygen Flow Rate 6 12/05/22 14:25 MDM - General Adult Medical Decision Making Patient has gaping wound to the left knee from fall this morning. Given recent surgery, patient needs to go back to the OR for washout and closure. Dr. Joyce excepts patient and will take patient straight to surgery this morning. Patient reports last ate a small cookie about 7 AM this morning but nothing since. Chart reviewed and patient discussed with midlevel. Agree with assessment and plan. Lab Data Radiology Impressions Knee X-Ray 12/05/22 14:17 Impression: No change in old fracture of left patella and medial joint compartment narrowing. Kellgren-Johny Classification: grade 1 (doubtful): doubtful joint space narrowing and possible osteophytic lipping Discharge Plan Discharge Patient Disposition: Placed in Observation Clinical Impression: Laceration of knee, left Qualifiers: Encounter type: initial encounter Qualified Code(s): S81.012A - Laceration without foreign body, left knee, initial encounter Discharge Diet: Advance as tolerated Discharge Activity: Limit activity as instructed Coding Level of Care Code ED Patient Financial Advocate for Shruthi Hatfield
[2022-12-05] MEDS: morphine 4 mg/mL SDV 1 mL IVP (11:43)
--- NOTE | 2022-12-05 13:02 | PC.PHAR ---
pts daughter in law states the pts sister fifi takes care of her meds-left message for fifi
--- NOTE | 2022-12-05 13:29 | P.CONIM_ITS ---
Providers/Reason For Consult Consulting Physician/Specialty*: Ortho Reason for Consult*: Left Knee Pain Attending Physician: Dinesh Joyce DO Primary Care Provider: Migel Flores MD History of Present Illness History of Present Illness Kristina Johnson is a 77 year old female fell at her home after tripping sustained injury to her left knee. She had a operative procedure for hardware removal with Dr. Krishna on 11/11/2022 and was progressing nicely. She tripped fell on the left knee causing the incision to split open. She presented to the emergency room where orthopedics was consulted for her injury. She denies any loss of conscious in the fall denies any shoulder elbow or wrist pain denies any low back or hip pain. Denies any ankle pain. All of her pain is localized to the left knee. She had been progressing nicely until this event. Denies any fever or chills. She had immediate bleeding from the laceration. Review of Systems General: Reports: 10 or more systems reviewed and unremarkable except in HPI and below Medications/Allergies Home Medications Medication Instructions Recorded Confirmed Last Taken Type simvastatin 10 mg tablet 10 mg PO BEDTIME 12/03/20 11/27/22 11/10/22 History [place] knee brace #1 ea 05/13/22 11/27/22 Unknown Rx tizanidine 4 mg tablet 4 mg PO Q8H PRN Muscle Spasm 05/29/22 11/27/22 11/10/22 History amlodipine 10 mg tablet 10 mg PO DAILY #90 tabs 06/02/22 11/27/22 11/11/22 Rx carvedilol 6.25 mg tablet 6.25 mg PO BID #180 tabs 06/02/22 11/27/22 11/11/22 Rx omeprazole 20 mg capsule,delayed 20 mg PO BID #90 caps 06/02/22 11/27/22 11/10/22 Rx release docusate sodium 100 mg capsule 100 mg PO BID 11/10/22 11/27/22 11/10/22 History mirtazapine 15 mg tablet 15 mg PO DAILY 11/11/22 11/27/22 11/10/22 History Allergies Allergy/AdvReac Type Severity Reaction Status Date / Time Sulfa (Sulfonamide Allergy Unknown rash Verified 11/27/22 12:01 Antibiotics) codeine Allergy nausea Verified 11/27/22 12:01 PFSH Acute PFSH: Medical History Acute encephalopathy Benign essential hypertension Cerebrovascular disease Chest pain CVA (cerebral vascular accident) Dyslipidemia (high LDL; low HDL) Early satiety Frequent falls Pacemaker Postoperative complication of skin involving drainage from surgical wound Presence of permanent cardiac pacemaker SSS (sick sinus syndrome) Syncope and collapse Thrombotic stroke Unstable angina Surgical History Hx of cholecystectomy Hx of knee surgery Family History Mother Diabetes CAD (coronary artery disease) Father Diabetes CAD (coronary artery disease) Brother Diabetes x 10 brothers Hypertension x 10 brothers Lung disease Cancer CAD (coronary artery disease) x 4 brothers Stroke Sister Diabetes x 4 sisters Hypertension x 7 sisters CAD (coronary artery disease) Brother Stroke CAD (coronary artery disease) Cancer Diabetes Brother CAD (coronary artery disease) Diabetes Brother CAD (coronary artery disease) Brother CAD (coronary artery disease) Brother CAD (coronary artery disease) Brother CAD (coronary artery disease) Brother CAD (coronary artery disease) Sister Diabetes Lung disease Denies family history of Clotting disorder Dementia Chronic kidney disease (CKD) Suicide Anesthesia complication Bleeding disorder Social History Smoking and tobacco status: former smoker Alcohol intake: never Substance/Drug Use: never Vitals/I&O/Wt Last Vital Signs Temp 97.9 F 12/05/22 10:36 Pulse 71 12/05/22 10:36 Resp 14 12/05/22 11:17 BP 135/77 12/05/22 10:36 Pulse Ox 98 12/05/22 10:36 O2 Del Method Room Air 12/05/22 10:36 Weight last 48 hrs Weight 140 lb Physical Exam Narrative: [place] x3 she has good general appearance normal mood normal affect. She was evaluated in the operative holding area with family present. She has no palpable pain in the cervical she has full range of motion of the cervical spine. No palpation over the shoulders elbows or wrists full range of motion of both upper extremities normal station light touch in both shoulders arms hands good sensation light touch radial pulses are palpable fires in all motor groups. No palpable pain in the thoracic or lumbar spine with palpation. Negative logroll bilaterally in each hip. She does have an open laceration to the anterior aspect of the left knee. No palpable pain in the right lower extremity where she has full range of motion. No palpable pain in either ankle she can dorsiflex and plantarflex without any problems. Calves are supple no medial thigh tenderness dorsalis pedis posterior pulses are palpable. HENMT: COMMON NORMALS: normocephalic and atraumatic HEAD & SCALP: normocephalic and atraumatic Resp: COMMON NORMALS: normal respiratory effort Cardio: COMMON NORMALS: regular rate and regular rhythm RATE: regular rate RHYTHM: regular rhythm GI: COMMON NORMALS: Soft to palpation PALPATION: Yes Soft to palpation : COMMON NORMALS: Yes no CVA tenderness BLADDER/KIDNEY EXAM: Yes no CVA tenderness Back/Pelvis: COMMON NORMALS: no CVA tenderness Psych: COMMON NORMALS: mental status grossly normal and cooperative A&P Assessment and plan (1) Laceration of knee, left: Open nature of the laceration involve the left knee we will perform irrigation debridement procedure with closure. Discussed the risk benefits of procedures could to bleeding infection nerve damage continued left knee pain risk of infection continued knee pain she understands these risk wished to proceed. Discussed with Dr. Contreras agrees above-stated plan. More than 50% of the time spent with the patient today involved coordination of care, counseling and discussion of conservative versus surgical treatment options. Total amount of time spent with the patient was 45 minutes. Qualifiers: Encounter type: initial encounter Qualified Code(s): S81.012A - Laceration without foreign body, left knee, initial encounter Coding Level of Care Code Acute Code for [facility] Fwd Diagnoses Laceration of knee, left S81.012A Encounter type: initial encounter Time Spent (min) 45
[2022-12-05] MEDS: sodium chloride 0.9% 1,000 ML 30 ML IV (13:42)
[2022-12-05] MEDS: ceFAZolin 2,000 MG in sodium chloride 0.9% (plus) 50 ML 100 MG IV (14:00)
--- NOTE | 2022-12-05 14:05 | ANES.PREANE2 ---
Pre-Anesthetic Assessment Height/Weight: Height 1.65 m Weight 63.503 kg Temp Pulse Resp BP Pulse Ox O2 Del Method 97.2 F L 70 18 119/66 98 Room Air 12/05/22 13:31 12/05/22 13:31 12/05/22 13:31 12/05/22 13:31 12/05/22 13:31 12/05/22 13:31 Preop Diagnosis: Laceration of Left Knee Operation Date: 12/05/22 13:30 Proposed Procedures p Incision and Drainage w/ wound closure(Left) - Dinesh Joyce, Familial anesthetic complications: none Was Beta Mikel taken within 24 hours: Yes Was Clonidine taken within 24 hours: N/A Last intake: Intake Last Liquid Date 12/05/22 Last Liquid Time 09:00 Last Solid Date 12/05/22 Last Solid Time 09:00 Social No alcohol and No tobacco Exam alert, oriented x 3, clear to auscultation bilaterally and regular rate & rhythm Airway Submandibular: within normal limits Cervical ROM: within normal limits Mallampati: Class II Dentition: false CV/HEM Hypertension Pacemaker GI Gastroesophageal Reflux Disease Neuropsych Cerebrovascular Accident and Dementia recent h/o acute encephalopathy Anesthetic Plan ASA status: 3 Anesthesia: General Medications/Allergies Home Medications Medication Instructions Recorded Confirmed Last Taken Type simvastatin 10 mg tablet 10 mg PO BEDTIME 12/03/20 11/27/22 11/10/22 History [place] knee brace #1 ea 05/13/22 11/27/22 Unknown Rx tizanidine 4 mg tablet 4 mg PO Q8H PRN Muscle Spasm 05/29/22 11/27/22 11/10/22 History amlodipine 10 mg tablet 10 mg PO DAILY #90 tabs 06/02/22 11/27/22 11/11/22 Rx carvedilol 6.25 mg tablet 6.25 mg PO BID #180 tabs 06/02/22 11/27/22 11/11/22 Rx omeprazole 20 mg capsule,delayed 20 mg PO BID #90 caps 06/02/22 11/27/22 11/10/22 Rx release docusate sodium 100 mg capsule 100 mg PO BID 11/10/22 11/27/22 11/10/22 History mirtazapine 15 mg tablet 15 mg PO DAILY 11/11/22 11/27/22 11/10/22 History hydrocodone 5 mg-acetaminophen 325 1 tab PO Q6H #30 tabs 12/05/22 Unknown Rx mg tablet Allergies Allergy/AdvReac Type Severity Reaction Status Date / Time Sulfa (Sulfonamide Allergy Unknown rash Verified 11/27/22 12:01 Antibiotics) codeine Allergy nausea Verified 11/27/22 12:01 Current Medications Generic Name Dose Route Start Last Admin Trade Name Freq PRN Reason Stop Dose Admin Sodium Chloride 1,000 mls @ 30 mls/hr 12/05/22 13:30 12/05/22 13:42 Sodium Chloride 0.9% IV 12/06/22 13:29 30 mls/hr .Q24H TOSHA Administration PFSH Anesthesia Medical History Acute encephalopathy Benign essential hypertension Cerebrovascular disease Chest pain CVA (cerebral vascular accident) Dyslipidemia (high LDL; low HDL) Early satiety Frequent falls Pacemaker Postoperative complication of skin involving drainage from surgical wound Presence of permanent cardiac pacemaker SSS (sick sinus syndrome) Syncope and collapse Thrombotic stroke Unstable angina Surgical History Hx of cholecystectomy Hx of knee surgery Family History Mother Diabetes CAD (coronary artery disease) Father Diabetes CAD (coronary artery disease) Brother Diabetes x 10 brothers Hypertension x 10 brothers Lung disease Cancer CAD (coronary artery disease) x 4 brothers Stroke Sister Diabetes x 4 sisters Hypertension x 7 sisters CAD (coronary artery disease) Brother Stroke CAD (coronary artery disease) Cancer Diabetes Brother CAD (coronary artery disease) Diabetes Brother CAD (coronary artery disease) Brother CAD (coronary artery disease) Brother CAD (coronary artery disease) Brother CAD (coronary artery disease) Brother CAD (coronary artery disease) Sister Diabetes Lung disease Denies family history of Clotting disorder Dementia Chronic kidney disease (CKD) Suicide Anesthesia complication Bleeding disorder Social History Smoking and tobacco status: former smoker Alcohol intake: never Substance/Drug Use: never Data Anesthesia Cardiac Studies: Echocardiogram 11/11/22 Sestamibi Stress Test (Cardiology) 11/13/22
--- NOTE | 2022-12-05 14:09 | W.PM.OPSUD ---
Surgery/Procedure H&P Update DATE OF PROCEDURE: December 05, 2022 DATE H&P PERFORMED: 12/05/22 H&P UPDATE INFORMATION: I have reviewed H&P completed within last 30 days, I have examined patient prior to procedure and No changes to prior documentation PREOP DIAGNOSIS: Laceration of Left Knee PLANNED PROCEDURE: Operation Date: 12/05/22 13:30 Proposed Procedures p Incision and Drainage w/ wound closure(Left) - Dinesh Joyce DO
--- NOTE | 2022-12-05 14:17 | XR_ITS ---
WS: [id number] Left knee, 3 views, 12/05/2022 Clinical Data: fall Comparison: Left knee, 11/27/2022 Findings: No new fractures or dislocations are seen. There is medial joint compartment narrowing. The transvers e fracture of the left patella remains the same.. The soft tissues are unremarkable. Vascular calcification is present. XR/XR knee LT 1-2V [id number] Impression: No change in old fracture of left patella and medial joint compartment narrowin g. Kellgren-Johny Classification: grade 1 (doubtful): doubtful joint space narr owing and possible osteophytic lipping
--- NOTE | 2022-12-05 14:28 | PM.OP ---
Operative Report Date of procedure: December 05, 2022 Pre-op diagnosis: Preop Diagnosis Laceration of Left Knee Post-op diagnosis: same Procedure done: 1. I+D down to skin and fascia 12 cm by 1 cm by 1 cm 2. Closure of skin 12 cm Kiln Maintenance: Kevin Casillas Kiln Maintenance: helped with retraction and closure of woun Estimated blood loss (mL): 5 Procedure: 1. I+D down to skin and fascia 12 cm by 1 cm by 1 cm 2. Closure of skin 12 cm Patient brought the OR suite after undergoing anesthesia was placed in the supine position. Arms appear well-padded. Patient was prepped draped normal sterile fashion. Patient had about a 12 cm x 1 cm x 1 cm wound patient fell on it. The wound was clean. The wound was irrigated with a liter of saline. Skin edges were found to be clean deep fascia was found to be clean and the previous sutures were not broken is all intact. Once the wound was cleaned and the wound was closed with 2-0 nylon. Sterile dressings were applied patient was transferred to the PACU in stable condition.
[2022-12-05] MEDS: fentaNYL 50 mcg/mL INJ 2mL IVP (14:31)
--- NOTE | 2022-12-05 15:04 | SUR.PHASEII ---
patient confused post op. patient doesnt remember coming in or why she has had surgery, keep asking how she got here. patients sister is at bedside and said this is normal for her post op after other surgeries as well. Patient lives alone but sister plans to stay with her tonight and until she is better to be at home alone.
--- NOTE | 2022-12-05 15:10 | ANE.PACU2 ---
Inpatient post-anesthesia follow up: Airway intact: Yes Vital signs: Temperature 97.0 F Pulse Rate 71 Respiratory Rate 17 Blood Pressure 114/65 Pulse Oximetry 92 Oxygen Delivery Me thod Room Air Oxygen Flow Rate 6 Fraction of Inspir ed Oxygen Hydration adequate: Yes Nausea and vomiting: No Pain level: 2 Mental status: Baseline
--- NOTE | 2022-12-05 15:51 | SUR.PHASEII ---
patient AOX4. discharged with sister. aware of her visit to ER and surgery.
== END 2022-12-05 15:51 | disposition home or self-care (01) ==
LOC: ER 12:46 → OR 12:58
PROVIDERS: Emergency Provider Physician Assistant; PCP Family Medicine; Visit Provider Orthopaedic Surgery
PROC: (CPT 12034; principal; 2022-12-05 13:30)
DX: T81.31XA Disruption of external operation (surgical) wound, not elsewhere classified, initial encounter (principal); W19.XXXA Unspecified fall, initial encounter; I10 Essential (primary) hypertension; Z95.0 Presence of cardiac pacemaker; K21.9 Gastro-esophageal reflux disease without esophagitis; Z86.73 Personal history of transient ischemic attack (TIA), and cerebral infarction without residual deficits; F03.90 Unspecified dementia, unspecified severity, without behavioral disturbance, psychotic disturbance, mood disturbance, and anxiety; Z87.891 Personal history of nicotine dependence
CPT/HCPCS: 12034; 73560; J0690; J1100; J2270; J2370; J2405; J2704; J3010; J7030

== ENCOUNTER → 2022-12-18 11:04 | Outpatient (BNVA) | payer MEDICARE, SELFPAY | PROVIDERS: PCP Family Medicine; Visit Provider Orthopaedic Surgery | DX: Z98.890 Other specified postprocedural states (principal); S81.012A Laceration without foreign body, left knee, initial encounter; X58.XXXA Exposure to other specified factors, initial encounter | CPT/HCPCS: 99024 ==

== ENCOUNTER → 2022-12-23 11:12 | Outpatient (BNVA) | payer MEDICARE, SELFPAY | PROVIDERS: PCP Family Medicine; Visit Provider Nurse Practitioner Family | DX: Z95.0 Presence of cardiac pacemaker (principal); I10 Essential (primary) hypertension; Z87.891 Personal history of nicotine dependence | CPT/HCPCS: 93288; 99214 ==

== ENCOUNTER → 2023-06-30 11:34 | Outpatient (BNVA) | payer MEDICARE, SELFPAY | PROVIDERS: PCP Family Medicine; Visit Provider Internal Medicine Cardiovascular Disease | DX: I10 Essential (primary) hypertension (principal); Z95.0 Presence of cardiac pacemaker; Z86.73 Personal history of transient ischemic attack (TIA), and cerebral infarction without residual deficits; Z86.79 Personal history of other diseases of the circulatory system; E78.5 Hyperlipidemia, unspecified; Z87.891 Personal history of nicotine dependence | CPT/HCPCS: 99214 ==

== ENCOUNTER 2023-10-16 15:28 | Emergency (ER) | payer MEDICARE, MEDICAID, SELFPAY ==
[2023-10-16 15:30] VITALS: BP 140/81; PULSE 77; RESP 16; TEMP 36.7; O2SAT 97
--- NOTE | 2023-10-16 15:35 | XR_ITS ---
WS: [id number] Examination: XR shoulder RT min 2V* [id number] Reason for Exam: fall, arm and shoulder pain Date: October 16, 2023 Comparison: None. Findings: There is a fracture identified involving the proximal right humerus. There is comminution with mild d isplacement of the greater tuberosity. Surgical neck fracture is noted with mild displacement. There is no evidence of dislocation of the humeral head Chronic deformity possibly postsurgical to the AC joint is noted. Impression: There is a comminuted right humeral head fracture without dislocation.
--- NOTE | 2023-10-16 15:35 | XR_ITS ---
WS: [id number] Examination: [place] [id number] Reason for Exam: fall, right arm pain Date: October 16, 2023 Comparison: None. Findings: There is a comminuted fracture of the proximal right humerus. The greater tuberosity is displaced. Th ere is fracture at the surgical neck. The humeral head is not dislocated. The distal humerus is intact. Impression: There is a comminuted right humeral head fracture with displacement of the greater tuberosity
--- NOTE | 2023-10-16 15:39 | W.ED.FALL ---
HPI - Fall General: Chief Complaint: Fall Stated Complaint: fall with rt shoulder pain Time Seen by Provider: 10/16/23 15:30 History of Present Illness: 78-year-old female with a history of hypertension, pacemaker placement, hyperlipidemia and some dementia who presents to the emergency room after a fall. She is complaining of isolated right shoulder pain and arm pain. Very tender to palpation in that area. She says she did not hit her head. She is not on any blood thinners. No altered mental status. No nausea or vomiting. No focal motor deficits. No abdominal pain. No chest pain. No shortness of breath. Review of Systems Narrative: Constitutional symptoms: Negative except as documented in HPI. Skin symptoms: Negative except as documented in HPI. Eye symptoms: Negative except as documented in HPI. ENMT symptoms: Negative except as documented in HPI. Respiratory symptoms: Negative except as documented in HPI. Cardiovascular symptoms: Negative except as documented in HPI. Gastrointestinal symptoms: Negative except as documented in HPI. Genitourinary symptoms: Negative except as documented in HPI. Musculoskeletal symptoms: Negative except as documented in HPI. Neurologic symptoms: Negative except as documented in HPI. Psychiatric symptoms: Negative except as documented in HPI. Endocrine symptoms: Negative except as documented in HPI. PFSH ED PFSH: Medical History Unstable angina Chest pain Acute encephalopathy Postoperative complication of skin involving drainage from surgical wound Early satiety Syncope and collapse Frequent falls SSS (sick sinus syndrome) Pacemaker Cerebrovascular disease Thrombotic stroke Dyslipidemia (high LDL; low HDL) Presence of permanent cardiac pacemaker Benign essential hypertension CVA (cerebral vascular accident) Surgical History Hx of cholecystectomy Hx of knee surgery Family History Mother Diabetes CAD (coronary artery disease) Father Diabetes CAD (coronary artery disease) Brother Diabetes x 10 brothers Hypertension x 10 brothers Lung disease Cancer CAD (coronary artery disease) x 4 brothers Stroke Sister Diabetes x 4 sisters Hypertension x 7 sisters CAD (coronary artery disease) Brother Stroke CAD (coronary artery disease) Cancer Diabetes Brother CAD (coronary artery disease) Diabetes Brother CAD (coronary artery disease) Brother CAD (coronary artery disease) Brother CAD (coronary artery disease) Brother CAD (coronary artery disease) Brother CAD (coronary artery disease) Sister Diabetes Lung disease Denies family history of Clotting disorder Dementia Chronic kidney disease (CKD) Suicide Anesthesia complication Bleeding disorder Social History Smoking and tobacco/nicotine status: former use of tobacco/nicotine Alcohol intake: never Substance/Drug Use: never Physical Exam Narrative: EXAM NARRATIVE: General: Alert, no acute distress. Skin: Warm, dry. Head: Normocephalic, atraumatic. Neck: Supple, trachea midline. Eye: Extraocular movements are intact. Ears, nose, mouth and throat: mucosa moist. Cardiovascular: Regular, Normal peripheral perfusion. Respiratory: Lungs are clear to auscultation, respirations are non-labored, breath sounds are equal, Symmetrical chest wall expansion. Gastrointestinal: Soft, Nontender, Non distended, Normal bowel sounds. Musculoskeletal: Pain to palpation of the right humerus from midshaft up to the shoulder. Patient is neurovascularly intact. Neurological: Alert and oriented, No focal neurological deficit observed. Psychiatric: Cooperative, appropriate mood & affect. Course Vital Signs: Vital signs: Vital Signs Temperature 98.1 F 10/16/23 15:30 Pulse Rate 77 10/16/23 15:30 Respiratory Rate 16 10/16/23 15:30 Blood Pressure 140/81 10/16/23 15:30 Pulse Oximetry 97 10/16/23 15:30 Oxygen Delivery Me thod Room Air 10/16/23 15:30 MDM - Fall Medical Decision Making Medical decision making: Differential diagnosis including but not limited to and based on the above HPI, review of systems and physical exam: My concern would be for a shoulder fracture. Or midshaft humerus fracture. X-rays were ordered. X-ray of the right shoulder shows an impacted proximal humerus fracture. This was reviewed and interpreted by myself the emergency room physician. Consultation: I spoke with Dr. Contreras the orthopedist on-call. He recommends a sling, pain control and follow-up in clinic next week. Reexamination: Patient remained stable. Still has some pain. With this is better controlled with some pain medications. No altered mental status. No increased work of breathing. All radiology interpretation(s) finalized by discharge Other Data Assessment and plan: Proximal humerus fracture -[place] in the emergency room. Sling placed by nursing. - Discharged home - Discussed plan with patient. Answered any questions. - Evaluation and treatment of this problem were appropriate in the emergency setting. Discharge Plan Discharge Patient Disposition: Home Clinical Impression: Proximal humerus fracture Condition: Stable Prescriptions: New hydrocodone-acetaminophen 5-325 mg tablet 1 tab PO Q6H PRN (Reason: pain) Qty: 20 0RF ondansetron 8 mg tablet,disintegrating 8 mg PO .q6 PRN (Reason: nausea and vomiting) Qty: 14 0RF Miralax 17 gram/dose powder 17 g PO DAILY Qty: 510 0RF Rx Instructions: Take 1 scoop daily while taking pain medications. No Action (DME) Francisco J knee brace See Rx Instructions .Route .MEDSUPPLY Qty: 1 0RF Rx Instructions: Left knee locked at full extension No motion simvastatin 10 mg tablet 10 mg PO BEDTIME tizanidine 4 mg Tablet 4 mg PO Q8H PRN (Reason: Muscle Spasm) carvedilol 6.25 mg Tablet 6.25 mg PO BID Qty: 180 0RF Hold Instructions: Resume on 11/15/22. amlodipine 10 mg Tablet 10 mg PO DAILY Qty: 90 0RF Hold Instructions: Resume on 11/15/22. docusate sodium 100 mg capsule 100 mg PO BID PRN (Reason: Constipation) aripiprazole 5 mg tablet 5 mg PO DAILY duloxetine 60 mg capsule,delayed release(DR/EC) 60 mg PO DAILY omeprazole 20 mg capsule,delayed release(DR/EC) 20 mg PO BID PRN (Reason: Acid Reflux) Discharge Orders: Discharge ED (Routine); Ordered 10/16/23 Ordered By: Delfina Childs Referrals: Dinesh Joyce DO [Physician] - (Please call for an appointment. I would call early Thursday morning. Dr. Joyce will see you next week.) Migel Flores MD [Primary Care Provider] - (You have been screened and evaluated and felt safe for discharge. Health conditions do change or evolve sometimes and as such it is important that you follow up with your Primary Doctor to be re checked, 3-5 days is a general good time frame for follow up. You are always welcome to return to the ED for re assessment if your symptoms are worsening or you have new concerns) Discharge Diet: Usual diet Discharge Activity: Increase activity as tolerated Patient Instructions: How to Use a Sling (ED), Proximal Humerus Fracture (ED), Opioid Safety Coding Level of Care Code [facility] [employer] for [facility] [place]
[2023-10-16] MEDS: HYDROcodone-acetaminophen 10-325 mg Tablet 1 TAB PO (16:39)
[2023-10-16 16:45] VITALS: BP 145/86; PULSE 70; RESP 16; O2SAT 94
== END 2023-10-16 17:15 | disposition home or self-care (01) ==
PROVIDERS: Emergency Provider Emergency Medicine; PCP Family Medicine
DX: S42.201A Unspecified fracture of upper end of right humerus, initial encounter for closed fracture (principal); Z95.0 Presence of cardiac pacemaker; E78.5 Hyperlipidemia, unspecified; I10 Essential (primary) hypertension; Z86.73 Personal history of transient ischemic attack (TIA), and cerebral infarction without residual deficits; Z87.891 Personal history of nicotine dependence; F03.90 Unspecified dementia, unspecified severity, without behavioral disturbance, psychotic disturbance, mood disturbance, and anxiety; W19.XXXA Unspecified fall, initial encounter
CPT/HCPCS: 73030; 73060; 99284

== ENCOUNTER → 2023-10-20 14:26 | Outpatient (BNVA) | payer MEDICARE, MEDICAID, SELFPAY | PROVIDERS: PCP Family Medicine; Visit Provider Orthopaedic Surgery | DX: S42.291A Other displaced fracture of upper end of right humerus, initial encounter for closed fracture (principal); X58.XXXA Exposure to other specified factors, initial encounter | CPT/HCPCS: 73060; 99203 ==

== ENCOUNTER → 2023-11-26 11:04 | Outpatient (BNVA) | payer MEDICARE, MEDICAID, SELFPAY | PROVIDERS: PCP Family Medicine; Visit Provider Orthopaedic Surgery | DX: S42.291A Other displaced fracture of upper end of right humerus, initial encounter for closed fracture (principal); X58.XXXD Exposure to other specified factors, subsequent encounter | CPT/HCPCS: 73060; 99213 ==

== ENCOUNTER → 2024-01-05 07:56 | Outpatient (BNVA) | payer MEDICARE, MEDICAID, SELFPAY | PROVIDERS: PCP Family Medicine; Visit Provider Orthopaedic Surgery | DX: S42.291D Other displaced fracture of upper end of right humerus, subsequent encounter for fracture with routine healing (principal); Z09 Encounter for follow-up examination after completed treatment for conditions other than malignant neoplasm; X58.XXXD Exposure to other specified factors, subsequent encounter | CPT/HCPCS: 73060; 99213 ==

== ENCOUNTER → 2024-04-05 10:43 | Outpatient (BNVA) | payer MEDICARE, MEDICAID, SELFPAY | PROVIDERS: PCP Family Medicine; Visit Provider Orthopaedic Surgery | DX: S42.291D Other displaced fracture of upper end of right humerus, subsequent encounter for fracture with routine healing (principal); X58.XXXD Exposure to other specified factors, subsequent encounter | CPT/HCPCS: 73030; 99213 ==

== ENCOUNTER → 2024-06-30 10:35 | Outpatient (BNVA) | payer MEDICARE, MEDICAID, SELFPAY | PROVIDERS: PCP Family Medicine; Visit Provider Orthopaedic Surgery | DX: S42.291D Other displaced fracture of upper end of right humerus, subsequent encounter for fracture with routine healing (principal); X58.XXXD Exposure to other specified factors, subsequent encounter | CPT/HCPCS: 73060; 99213 ==

== ENCOUNTER → 2024-07-15 10:43 | Outpatient (BNVA) | payer MEDICARE, MEDICAID, SELFPAY | PROVIDERS: PCP Family Medicine; Visit Provider Internal Medicine Cardiovascular Disease | DX: Z45.018 Encounter for adjustment and management of other part of cardiac pacemaker (principal) | CPT/HCPCS: 93280 ==

== ENCOUNTER → 2024-08-16 12:58 | Outpatient (BNVA) | payer MEDICARE, MEDICAID, SELFPAY | PROVIDERS: PCP Family Medicine; Visit Provider Internal Medicine Cardiovascular Disease | DX: Z95.0 Presence of cardiac pacemaker (principal); I10 Essential (primary) hypertension; I49.5 Sick sinus syndrome | CPT/HCPCS: 99214 ==

== ENCOUNTER → 2024-12-27 11:31 | Outpatient (BNVA) | payer MEDICARE, MEDICAID, SELFPAY | PROVIDERS: PCP Family Medicine; Visit Provider Orthopaedic Surgery | DX: S42.201P Unspecified fracture of upper end of right humerus, subsequent encounter for fracture with malunion (principal); X58.XXXD Exposure to other specified factors, subsequent encounter | CPT/HCPCS: 73060; 99214 ==